=== PATIENT | male | born 1970 | race Caucasian/White ===

== ENCOUNTER 2023-03-28 05:45 | Inpatient (IN) | payer OTHER, SELFPAY ==
[2023-03-28] VITALS (8 sets, daily range): BP systolic 107–131; BP diastolic 76–93; PULSE 108–119; RESP 16–24; TEMP 36.2–36.6; O2SAT 94–100; BMI 26.1; BMI 27.4
--- NOTE | ~2023-03-28 | CT_ITS ---
EXAMINATION: CT HEAD WITHOUT CONTRAST CLINICAL INFORMATION: Headache for 2 days, rule out intracranial abnormality. COMPARISON: None available. TECHNIQUE: Contiguous axial imaging was performed from the skull base to vertex without intravenous administration of contrast. Coronal and sagittal reformatted images were obtained. This CT examination was performed using dose optimization techniques as appropriate, variously including the following: *Automated exposure control *Adjustment of mA and/or kV according to patient size (this includes techniques or standardized protocols for targeted exams where dose is matched to indication/reason for exam; i.e. extremities or head) *Use of iterative reconstruction technique DLP: 682 mGy-cm FINDINGS: There is mild widening of the cortical sulci and associated ventriculomegaly. The lateral ventricles are symmetrical. The third and fourth ventricles are in their normal midline position. The basilar and prepontine cisterns are unremarkable. There is no acute intra or extracerebral abnormality. There is no mass effect or midline shift. Sections through the bony calvarium are unremarkable. The orbits are intact. The paranasal sinuses show mild mucosal thickening in the ethmoid sinuses bilaterally. Remainder the paranasal sinuses are clear. The mastoid air cells are clear. Mild debris is seen medially in the left external auditory canal. CT/CT head/brain wo IV con IMPRESSION: No acute intracranial pathology.
--- NOTE | ~2023-03-28 | CT_ITS ---
EXAMINATION: CT CHEST WITHOUT CONTRAST CLINICAL INFORMATION: Cough COMPARISON: Previous chest x-ray from earlier the same day TECHNIQUE: Multidetector volumetric CT imaging of the chest was done. Axial MIP volume rendering provided. Sagittal and coronal reformatted images were obtained. This CT examination was performed using dose optimization techniques as appropriate, variously including the following: *Automated exposure control *Adjustment of mA and/or kV according to patient size (this includes techniques or standardized protocols for targeted exams where dose is matched to indication/reason for exam; i.e. extremities or head) *Use of iterative reconstruction technique DLP: 296 mGy-cm FINDINGS: Limited due to artifact from respiratory motion. LUNGS: Dependent atelectasis at the lung bases adjacent to pleural effusions. Question interlobular septal thickening. MEDIASTINUM: Upper normal heart size. Question pulmonary venous redistribution. Diffuse shotty mediastinal lymphadenopathy. No pericardial effusion. Normal thyroid gland. Normal caliber thoracic aorta. CORONARY ARTERY CALCIFICATION: Moderate PLEURA: Bilateral pleural effusions right greater than left. AXILLA: No lymphadenopathy. UPPER ABDOMEN: Question high attenuation in the gallbladder. OSSEOUS STRUCTURES: Mild degenerative changes of the spine CT/CT chest wo IV con IMPRESSION: Limited exam due to respiratory motion artifact. Question mild CHF with bilateral pleural effusions, right greater than left.. Fleischner guidelines were followed.
--- NOTE | ~2023-03-28 | XR_ITS ---
EXAMINATION: XR CHEST CLINICAL INFORMATION: Chills and cough COMPARISON: None available. TECHNIQUE: 2 views of the chest were obtained. FINDINGS: Cardiac silhouette is normal in size. The lungs are adequately aerated. There is prominence of central pulmonary vasculature. Patchy scattered airspace opacities, nonspecific. No large pleural effusion. No pneumothorax. XR/XR chest 2V IMPRESSION: Patchy scattered airspace opacities. Findings are nonspecific but most suggestive of an infectious etiology. Follow-up imaging recommended status post treatment to ensure resolution.
--- NOTE | 2023-03-28 07:06 | ED.GENADULT ---
HPI - General Adult General Chief complaint: General Medical Stated complaint: SoB Time Seen by Provider: 03/28/23 07:05 Source: patient Mode of arrival: ambulatory Limitations: no limitations History of Present Illness HPI narrative: 52-year-old male who presents emergency department for evaluation of 2 days of headache, chills, nonproductive cough, sore throat, chest pain and shortness of breath. Patient has also had nausea with 1 episode of vomiting, diarrhea x1 day with 6-7 episodes of loose stool with no blood-he has had chronic diarrhea in the past, myalgias and arthralgias. Patient states that he is fully vaccinated against COVID-19 and did have a flu shot. Patient's headache is located in the frontal area, the headache is a constant, sharp, waxes and wanes in intensity from 4/10 to 9/10, he had no associated numbness, weakness, photophobia, photophobia, change in vision. He states is very unusual to have a headache that lasts this long. Patient states that he has a history of chronic back pain is had multiple injuries. He is managed by [facility] Had steroid injections in the past. He states he has had a flare-up of his back pain, the pain is located in his lower back it is constant, worse with movement. He is currently taking ibuprofen 800 mg 3 times a day and gabapentin 100 mg, 1 pill in the morning, 1 pill in the afternoon and 3 pills at night with no relief his back pain. He states he has had no sleep has had 1-2 hours of sleep per night the last 2-3 nights. The patient has not had any recent out of the country travel. He was on antibiotics 1 month prior for several days for ?athlete's foot ?but states they had to stop after 3 days secondary to interaction with his medications The patient does have HIV disease and he is taking Genovya. He states that 2 months prior his viral load was undetectable and his T4 cell count was greater than 1000. Related Data Allergies Allergy/AdvReac Type Severity Reaction Status Date / Time Sulfa (Sulfonamide Allergy Unknown Verified 03/28/23 05:51 Antibiotics) Review of Systems Review of Systems: Yes all other systems are reviewed and are negative PMFSH Past Medical History [facility] Narrative: Past medical history: HIV disease, chronic back pain. Past surgical history: None. Social history: He denies tobacco, alcohol and drug use. Social History Social History Advance Directives: No Advance Directives Information Provided: Yes Physical Exam ED Vital Signs: Vital Signs - 24 hr 03/28/23 05:51 03/28/23 09:41 03/28/23 12:00 Temperature 97.9 F 97.4 F 97.5 F Pulse Rate 116 H 110 H 114 H Respiratory Rate 18 20 21 H Blood Pressure 128/91 H 115/85 126/93 H Pulse Oximetry 97 94 97 Oxygen Delivery Method Room Air Room Air Room Air 03/28/23 12:49 Temperature Pulse Rate 119 H Respiratory Rate 24 H Blood Pressure 129/87 Pulse Oximetry 95 Oxygen Delivery Method Room Air BMI result Body Mass Index 26.1 Const General: cooperative and no acute distress Orientation/consciousness: oriented to person and oriented to place Limitations: no limitations HENMT Head: Yes normal to inspection, Yes normocephalic and Yes atraumatic Ears: external ears normal General nose exam: Normal external nose present Face and sinus: Yes normal facial exam Mouth: Normal oral and palatal mucosa present Throat: Yes posterior oropharynx normal Eyes General: appearance normal, both eyes and all related structures Pupils: Equal, round and reactive pupils present Neck Neck: Yes normal visual inspection, Yes no lymphadenopathy, Yes trachea midline and Yes supple Chest Chest palpation & inspection: normal inspection of the chest and normal palpation of entire chest wall Resp Effort & Inspection: normal respiratory effort and able to speak in complete sentences Auscultation: clear to auscultation bilaterally Cardio Rate: regular rate Rhythm: regular rhythm Heart sounds: S1 normal heart sound present, S2 normal heart sound present and no murmurs GI Inspection: Yes normal to inspection Palpation (GI): Soft to palpation, nontender and no guarding Auscultation: normal bowel sounds Back/Spine/Pelvis Other: Tender over the paraspinal muscles in the lumbar sacral area bilaterally, spasm of these muscles, no point tenderness with palpation over his vertebrae. Patient does have a lidocaine patch on his lower back, no rash noted. Skin General skin exam: no rashes or lesions noted Neuro General: oriented to person and oriented to place Cranial nerves: Yes CN's II-XII intact bilaterally and Yes Equal, round and reactive pupils present Cognition (Neuro): normal cognition Motor exam (neuro): 5 motor strength present throughout Extrem General: Yes normal to inspection Psych Appearance: grossly normal Speech and movement: Normal speech and movement present Affect: normal affect Attitude: cooperative Thought process: Normal thought process present Thought content: Normal thought content present Medications Administered Generic Name Dose Route Start Last Admin Trade Name Rachael PRN Reason Stop Dose Admin Azithromycin 500 mg/ Sodium 250 mls @ 125 mls/hr 03/28/23 11:32 03/28/23 12:28 Chloride IV 03/28/23 13:31 125 mls/hr ONCE ONE Administration Discontinued Medications Generic Name Dose Route Start Last Admin Trade Name Rachael PRN Reason Stop Dose Admin Diphenhydramine HCl 50 mg 03/28/23 07:24 03/28/23 07:51 Diphenhydramine Hcl 50 Mg/Ml Vial IVPUSH 03/28/23 07:25 50 mg ONCE STA Administration Sodium Chloride 1,000 mls @ 999 mls/hr 03/28/23 07:24 03/28/23 09:39 Ns IV 03/28/23 08:24 Infused .Q1H1M STA Infusion Ceftriaxone Sodium 1 gm/ 50 mls @ 100 mls/hr 03/28/23 11:32 03/28/23 12:42 Sodium Chloride IV 03/28/23 12:01 Infused ONCE ONE Infusion Metoclopramide HCl 10 mg 03/28/23 07:24 03/28/23 07:51 Metoclopramide Hcl 10 Mg/2 Ml Vial IVPUSH 03/28/23 07:25 10 mg ONCE STA Administration Morphine Sulfate 4 mg 03/28/23 07:29 03/28/23 07:51 Morphine Sulfate 4 Mg/Ml Cartridge IVPUSH 03/28/23 07:30 4 mg ONCE STA Administration Protocol Medical Decision Making Medical Decision Making MDM Narrative: 52-year-old male with HIV disease, viral load is zero, T4 cell count greater than 1000 who presents emergency department for evaluation of 2 days headache, chills, sore throat, cough, chest pain, shortness of breath, nausea vomiting, diarrhea, myalgias and arthralgias. Patient also has a flare-up of his chronic lower back pain. He is taking ibuprofen 800 mg 3 times a day and gabapentin 3 times a day with no relief his back pain. Patient has had decreased appetite and poor oral intake. Vital signs revealed an elevated pulse of 116. Patient's examination was otherwise unremarkable. I ordered a CBC, CMP, lipase, C diff, GI panel, influenza, COVID-19, strep test, urinalysis. I will obtain a CT scan of the brain and two-view chest x-ray. Patient's headache and body pain was treated with morphine 4 mg IV, Reglan 10 mg IV and Benadryl 50 mg IV. I also ordered normal saline x1 L. 1005: My interpretation patient's data is as follows: CBC was normal. Sodium and chloride were low 124 and 94. Serum osmolality low 267, urine osmolality normal 695, urine sodium low 20. LFTs were normal. Lipase was normal. COVID-19 and influenza were negative. CT scan of the head was unremarkable. Chest x-ray revealed bilateral interstitial pneumonia Patient was unable to give us a stool sample. Patient's presentation is consistent with atypical pneumonia. Given his normal T4 cell count and zero viral load the patient will be treated for an atypical pneumonia. Given his hyponatremia, I will consult Nephrology determine further management. 1137: I did discuss the patient's hyponatremia with our covering financial engineer, Dr. Leon Chamorro. He felt that the hyponatremia mixed disorder. Patient was tachycardic and is most likely hypovolemic he may also have an SIADH picture secondary to an atypical pneumonia/bacterial infection. He recommended that the patient not get any more IV fluid and that the patient be restricted to 1.5 L of free water per day. The patient already drink 1.0 L of water while he was here in the emergency department. I did order lactic acid, blood cultures x2, ceftriaxone 1 g IV and azithromycin 500 mg IV. I will discuss admission with the covering hospitalist. 1330: I discuss the patient's presentation with the covering hospitalist, Dr. Dave who accepted the patient on the hospital service. Differential Diagnosis Differential diagnosis includes but is not limited to headache, mass effect bleed, subarachnoid hemorrhage, viral syndrome, C diff colitis, viral colitis, pneumonia, viral pharyngitis, bacterial pharyngitis Admission/Observation Consideration of admission/observation: Escalation of care including admission/observation considered Consult Healthcare Provider Management of the patient was discussed with: Hospitalist and Divider Operator (Dr. Chamorro, financial engineer) Lab Data MDM Lab Attestation statement: I reviewed the patient's lab results. 03/28/23 07:45 03/28/23 07:45 Labs: Lab Results 03/28/23 03/28/23 03/28/23 Range/Units 07:45 07:45 07:45 WBC 7.7 (4.8-10.8) X10*3/uL RBC 4.48 L (4.60-5.80) X10*6/uL Hgb 14.1 (14.0-18.0) g/dl Hct 39.8 L (42.0-52.0) % MCV 88.8 (80.0-98.0) fL MCH 31.5 (27.0-33.0) pg MCHC 35.4 (31.0-36.0) g/dl RDW 11.3 (11.0-16.0) % Plt Count 257 (160-400) X10*3/uL MPV 10.2 (9.4-12.4) fL Immature Gran % (Auto) 0.4 (0.0-0.4) % Neut % (Auto) 75.0 H (45-73) % Lymph % (Auto) 15.6 L (20-40) % [place] % (Auto) 8.4 (2-11) % Eos % (Auto) 0.3 (0-4) % Baso % (Auto) 0.3 (0-2) % Lymph # (Auto) 1.2 (1.2-4.9) X10*3/uL [place] # (Auto) 0.7 (0.1-1.2) X10*3/uL Eos # (Auto) 0.0 (0.0-0.4) X10*3/uL Baso # (Auto) 0.0 (0.0-0.2) X10*3/uL Abs Immat Gran (auto) 0.03 (0.00-0.03) X10*3/uL Absolute Neuts (auto) 5.8 (2.0-8.3) x10*3/uL Absolute Nucleated RBC 0.000 (0.0-0.012) X10*3/uL Nucleated RBC % (auto) 0.0 (0.0-0.2) /100WBC Smear Tech's Comments VERIFIED PT (10.0-13.1) SEC INR (0.9-1.1) APTT (26.0-36.4) SEC Sodium 124 L (135-145) mmol/L Potassium 4.4 (3.3-5.1) mmol/L Chloride 94 L (96-108) mmol/L Carbon Dioxide 23 (22-29) mmol/L Anion Gap 11 L (12-20) BUN 17 H (9-16) mg/dL Creatinine 0.75 (0.5-1.4) mg/dL Estim Creat Clear Calc 120.3 Estimated GFR > 60 Random Glucose 116 H (60-115) mg/dL Osmolality (281-305) mosm/kg Lactic Acid (0.5-2.0) mmol/L Calcium 8.9 (8.4-10.2) mg/dL Total Bilirubin 1.1 H (0.0-1.0) mg/dL AST 20 (5-37) U/L ALT 25 (0-40) U/L Alkaline Phosphatase 71 (39-117) U/L Total Protein 6.6 (6.5-8.0) g/dL Albumin 4.0 (3.5-5.0) g/dL Lipase 8 (8-78) U/L Urine Color Urine Appearance Urine pH (5.0-9.0) Ur Specific [place] (1.005-1.025) Urine Protein (Neg-Trace) mg/dL Urine Glucose (UA) (Negative) mg/dL Urine Ketones (Negative) mg/dL Urine Blood (Negative) Urine Nitrite (Negative) Ur Leukocyte Esterase (Negative) Urine RBC (0-2) /HPF Urine WBC (0-5) /HPF Ur Squamous Epith Cells (0-2) /HPF Urine Bacteria (None Seen) Hyaline Casts (0-2) /LPF Urine Osmolality (373-1093) mosm/kg Ur Random Sodium mmol/L COVID-19 (LIDIA) (Negative) COVID-19 Clin Com Influenza Type A (AMRIK) Negative (Negative) Influenza Type B (AMRIK) Negative (Negative) Influenza A & B Note See Note S. pyogenes GrpA AMRIK (Negative) 03/28/23 03/28/23 03/28/23 Range/Units 07:45 07:45 07:45 WBC (4.8-10.8) X10*3/uL RBC (4.60-5.80) X10*6/uL Hgb (14.0-18.0) g/dl Hct (42.0-52.0) % MCV (80.0-98.0) fL MCH (27.0-33.0) pg MCHC (31.0-36.0) g/dl RDW (11.0-16.0) % Plt Count (160-400) X10*3/uL MPV (9.4-12.4) fL Immature Gran % (Auto) (0.0-0.4) % Neut % (Auto) (45-73) % Lymph % (Auto) (20-40) % [place] % (Auto) (2-11) % Eos % (Auto) (0-4) % Baso % (Auto) (0-2) % Lymph # (Auto) (1.2-4.9) X10*3/uL [place] # (Auto) (0.1-1.2) X10*3/uL Eos # (Auto) (0.0-0.4) X10*3/uL Baso # (Auto) (0.0-0.2) X10*3/uL Abs Immat Gran (auto) (0.00-0.03) X10*3/uL Absolute Neuts (auto) (2.0-8.3) x10*3/uL Absolute Nucleated RBC (0.0-0.012) X10*3/uL Nucleated RBC % (auto) (0.0-0.2) /100WBC Smear Tech's Comments PT (10.0-13.1) SEC INR (0.9-1.1) APTT (26.0-36.4) SEC Sodium (135-145) mmol/L Potassium (3.3-5.1) mmol/L Chloride (96-108) mmol/L Carbon Dioxide (22-29) mmol/L Anion Gap (12-20) BUN (9-16) mg/dL Creatinine (0.5-1.4) mg/dL Estim Creat Clear Calc Estimated GFR Random Glucose (60-115) mg/dL Osmolality 267 L (281-305) mosm/kg Lactic Acid (0.5-2.0) mmol/L Calcium (8.4-10.2) mg/dL Total Bilirubin (0.0-1.0) mg/dL AST (5-37) U/L ALT (0-40) U/L Alkaline Phosphatase (39-117) U/L Total Protein (6.5-8.0) g/dL Albumin (3.5-5.0) g/dL Lipase (8-78) U/L Urine Color Urine Appearance Urine pH (5.0-9.0) Ur Specific [place] (1.005-1.025) Urine Protein (Neg-Trace) mg/dL Urine Glucose (UA) (Negative) mg/dL Urine Ketones (Negative) mg/dL Urine Blood (Negative) Urine Nitrite (Negative) Ur Leukocyte Esterase (Negative) Urine RBC (0-2) /HPF Urine WBC (0-5) /HPF Ur Squamous Epith Cells (0-2) /HPF Urine Bacteria (None Seen) Hyaline Casts (0-2) /LPF Urine Osmolality (373-1093) mosm/kg Ur Random Sodium mmol/L COVID-19 (LIDIA) Negative (Negative) COVID-19 Clin Com See Note Influenza Type A (AMRIK) (Negative) Influenza Type B (AMRIK) (Negative) Influenza A & B Note S. pyogenes GrpA AMRIK Negative (Negative) 03/28/23 03/28/23 03/28/23 Range/Units 07:49 08:18 08:18 WBC (4.8-10.8) X10*3/uL RBC (4.60-5.80) X10*6/uL Hgb (14.0-18.0) g/dl Hct (42.0-52.0) % MCV (80.0-98.0) fL MCH (27.0-33.0) pg MCHC (31.0-36.0) g/dl RDW (11.0-16.0) % Plt Count (160-400) X10*3/uL MPV (9.4-12.4) fL Immature Gran % (Auto) (0.0-0.4) % Neut % (Auto) (45-73) % Lymph % (Auto) (20-40) % [place] % (Auto) (2-11) % Eos % (Auto) (0-4) % Baso % (Auto) (0-2) % Lymph # (Auto) (1.2-4.9) X10*3/uL [place] # (Auto) (0.1-1.2) X10*3/uL Eos # (Auto) (0.0-0.4) X10*3/uL Baso # (Auto) (0.0-0.2) X10*3/uL Abs Immat Gran (auto) (0.00-0.03) X10*3/uL Absolute Neuts (auto) (2.0-8.3) x10*3/uL Absolute Nucleated RBC (0.0-0.012) X10*3/uL Nucleated RBC % (auto) (0.0-0.2) /100WBC Smear Tech's Comments PT 12.2 (10.0-13.1) SEC INR 1.1 (0.9-1.1) APTT 32.6 (26.0-36.4) SEC Sodium (135-145) mmol/L Potassium (3.3-5.1) mmol/L Chloride (96-108) mmol/L Carbon Dioxide (22-29) mmol/L Anion Gap (12-20) BUN (9-16) mg/dL Creatinine (0.5-1.4) mg/dL Estim Creat Clear Calc Estimated GFR Random Glucose (60-115) mg/dL Osmolality (281-305) mosm/kg Lactic Acid (0.5-2.0) mmol/L Calcium (8.4-10.2) mg/dL Total Bilirubin (0.0-1.0) mg/dL AST (5-37) U/L ALT (0-40) U/L Alkaline Phosphatase (39-117) U/L Total Protein (6.5-8.0) g/dL Albumin (3.5-5.0) g/dL Lipase (8-78) U/L Urine Color Yellow Urine Appearance Clear Urine pH 6.0 (5.0-9.0) Ur Specific [place] 1.020 (1.005-1.025) Urine Protein 30 (1+) H (Neg-Trace) mg/dL Urine Glucose (UA) Negative (Negative) mg/dL Urine Ketones 40 (Negative) mg/dL Urine Blood Negative (Negative) Urine Nitrite Negative (Negative) Ur Leukocyte Esterase Negative (Negative) Urine RBC 0-2 (0-2) /HPF Urine WBC 0-5 (0-5) /HPF Ur Squamous Epith Cells 0-2 (0-2) /HPF Urine Bacteria None Seen (None Seen) Hyaline Casts 0-2 (0-2) /LPF Urine Osmolality 695 (373-1093) mosm/kg Ur Random Sodium mmol/L COVID-19 (LIDIA) (Negative) COVID-19 Clin Com Influenza Type A (AMRIK) (Negative) Influenza Type B (AMRIK) (Negative) Influenza A & B Note S. pyogenes GrpA AMRIK (Negative) 03/28/23 03/28/23 03/28/23 Range/Units 08:18 12:14 12:14 WBC (4.8-10.8) X10*3/uL RBC (4.60-5.80) X10*6/uL Hgb (14.0-18.0) g/dl Hct (42.0-52.0) % MCV (80.0-98.0) fL MCH (27.0-33.0) pg MCHC (31.0-36.0) g/dl RDW (11.0-16.0) % Plt Count (160-400) X10*3/uL MPV (9.4-12.4) fL Immature Gran % (Auto) (0.0-0.4) % Neut % (Auto) (45-73) % Lymph % (Auto) (20-40) % [place] % (Auto) (2-11) % Eos % (Auto) (0-4) % Baso % (Auto) (0-2) % Lymph # (Auto) (1.2-4.9) X10*3/uL [place] # (Auto) (0.1-1.2) X10*3/uL Eos # (Auto) (0.0-0.4) X10*3/uL Baso # (Auto) (0.0-0.2) X10*3/uL Abs Immat Gran (auto) (0.00-0.03) X10*3/uL Absolute Neuts (auto) (2.0-8.3) x10*3/uL Absolute Nucleated RBC (0.0-0.012) X10*3/uL Nucleated RBC % (auto) (0.0-0.2) /100WBC Smear Tech's Comments PT (10.0-13.1) SEC INR (0.9-1.1) APTT (26.0-36.4) SEC Sodium 126 L (135-145) mmol/L Potassium 4.1 (3.3-5.1) mmol/L Chloride 96 (96-108) mmol/L Carbon Dioxide 19 L (22-29) mmol/L Anion Gap 15 (12-20) BUN 15 (9-16) mg/dL Creatinine 0.71 (0.5-1.4) mg/dL Estim Creat Clear Calc 127.0 Estimated GFR > 60 Random Glucose 99 (60-115) mg/dL Osmolality (281-305) mosm/kg Lactic Acid 1.3 (0.5-2.0) mmol/L Calcium 8.7 (8.4-10.2) mg/dL Total Bilirubin (0.0-1.0) mg/dL AST (5-37) U/L ALT (0-40) U/L Alkaline Phosphatase (39-117) U/L Total Protein (6.5-8.0) g/dL Albumin (3.5-5.0) g/dL Lipase (8-78) U/L Urine Color Urine Appearance Urine pH (5.0-9.0) Ur Specific [place] (1.005-1.025) Urine Protein (Neg-Trace) mg/dL Urine Glucose (UA) (Negative) mg/dL Urine Ketones (Negative) mg/dL Urine Blood (Negative) Urine Nitrite (Negative) Ur Leukocyte Esterase (Negative) Urine RBC (0-2) /HPF Urine WBC (0-5) /HPF Ur Squamous Epith Cells (0-2) /HPF Urine Bacteria (None Seen) Hyaline Casts (0-2) /LPF Urine Osmolality (373-1093) mosm/kg Ur Random Sodium < 20.0 mmol/L COVID-19 (LIDIA) (Negative) COVID-19 Clin Com Influenza Type A (AMRIK) (Negative) Influenza Type B (AMRIK) (Negative) Influenza A & B Note S. pyogenes GrpA AMRIK (Negative) Independent Interpretation I performed an independent interpretation of an: Plain X-Ray Interpretation: Chest X-ray, two view, interpreted by me as follows: Increased bilateral interstitial infiltrates concerning for atypical pneumonia. Radiology Impression Discussion of test interpretation with radiology: I have reviewed the radiologist's reading. Radiologist Impression: XR chest 2V IMPRESSION: Patchy scattered airspace opacities. Findings are nonspecific but most suggestive of an infectious etiology. Follow-up imaging recommended status post treatment to ensure resolution. Dictated By:Mohinder Ma MD Independent Historian Clinical information obtained from an independent historian. History obtained from or confirmed by: Spouse Prescription Management I considered prescription management with: Pain Medication Chronic Conditions Patient?s care impacted by: Other (HIV disease) Discharge Plan Discharge Clinical Impression: Atypical pneumonia, Acute hyponatremia
[2023-03-28] MEDS: Morphine Sulfate 4 MG/ML CARTRIDGE IVPUSH ×2 (07:51→14:21)
[2023-03-28] MEDS: 0.9 % Sodium Chloride 1,000 ML 999 ML IV (07:51)
[2023-03-28] MEDS: Metoclopramide HCl 10 MG/2 ML VIAL IVPUSH (07:51)
[2023-03-28] MEDS: diphenhydrAMINE HCL 50 MG/ML VIAL IVPUSH (07:51)
[2023-03-28 07:59] LABS: Basophils Percent Auto 0.3 % (0-2); Eosinophils Percent Auto 0.3 % (0-4); Hematocrit 39.8 % (42.0-52.0); Hemoglobin 14.1 g/dl (14.0-18.0); Imm Gran Abs Auto 0.03 X10*3/uL (0.00-0.03); Imm Gran Pct Auto 0.4 % (0.0-0.4); Lymphocytes Absolute Auto 1.2 X10*3/uL (1.2-4.9); Lymphocytes Percent Auto 15.6 % (20-40); MANUAL DIFF FLAG SCAN; Mean Corpuscular HGB Conc 35.4 g/dl (31.0-36.0); Mean Corpuscular Hemoglobin 31.5 pg (27.0-33.0); Mean Corpuscular Volume 88.8 fL (80.0-98.0); Mean Platelet Volume 10.2 fL (9.4-12.4); Monocytes Absolute Auto 0.7 X10*3/uL (0.1-1.2); Monocytes Percent Auto 8.4 % (2-11); Neutrophils Absolute Auto 5.8 x10*3/uL (2.0-8.3); PLT CLUMP 1; Red Blood Count 4.48 X10*6/uL (4.60-5.80); Red Cell Distribution Width 11.3 % (11.0-16.0); SCAN SMEAR FLAG 1
[2023-03-28 08:01] LABS: Appearance Urine Clear; Color Urine Yellow; Glucose Urine UA Negative (Negative); Leukocyte Esterase Urine Negative (Negative); Nitrite Urine Negative (Negative); UMIC TRIGGER UACC YES; Urine Blood Negative (Negative); Urine Ketones 40 mg/dL (Negative); Urine Protein 30 (1+) mg/dL (Neg-Trace)
[2023-03-28 08:04] LABS: IDNOW Serial# 6674DD1D; Strep A Nucleic Acid Negative (Negative)
[2023-03-28 08:09] LABS: Alanine Aminotransferase 25 U/L (0-40); Alkaline Phosphatase 71 U/L (39-117); Anion Gap 11 (12-20); Aspartate Amino Transferase 20 U/L (5-37); Bilirubin Total 1.1 mg/dL (0.0-1.0); Blood Urea Nitrogen 17 mg/dL (9-16); COVID-19 Test Negative (Negative); Calcium 8.9 mg/dL (8.4-10.2); Carbon Dioxide 23 mmol/L (22-29); Chloride 94 mmol/L (96-108); Creatinine Clr Calc Pharmacy 120.3; Estimated Glomerular Filt Rate > 60; Glucose Random 116 mg/dL (60-115); IDNOW Serial# BCCEAD1C; Lipase 8 U/L (8-78); Potassium 4.4 mmol/L (3.3-5.1); Sodium 124 mmol/L (135-145); Total Protein 6.6 g/dL (6.5-8.0)
[2023-03-28 08:09] LABS: Bacteria Urine None Seen (None Seen); Hyaline Casts Urine 0-2 /LPF (0-2); RBC Urine 0-2 /HPF (0-2); Squamous Epithelial Cell Urine 0-2 /HPF (0-2); WBC Urine 0-5 /HPF (0-5)
[2023-03-28 08:10] LABS: IDNOW Serial# 9DB6401D; Influenza A Negative (Negative); Influenza B2 Negative (Negative)
[2023-03-28 08:24] LABS: Platelet Count 257 X10*3/uL (160-400); White Blood Count 7.7 X10*3/uL (4.8-10.8)
[2023-03-28 08:25] LABS: SLIDE REVIEW VERIFIED
[2023-03-28 08:30] LABS: INTERNATIONAL NORM RATIO 1.1 (0.9-1.1); Prothrombin Time 12.2 SEC (10.0-13.1)
[2023-03-28 08:32] LABS: Partial Thromboplastin Time 32.6 SEC (26.0-36.4)
[2023-03-28 09:28] LABS: Sodium Urine Random < 20.0 mmol/L
[2023-03-28 09:30] LABS: Osmolality, Serum 267 mosm/kg (281-305)
[2023-03-28 09:31] LABS: Osmolality Urine 695 mosm/kg (373-1093)
[2023-03-28] MEDS: cefTRIAXone sodium 1 GM in 0.9 % Sodium Chloride 50 ML IV (12:12)
--- NOTE | 2023-03-28 12:13 | PC.NURSE ---
pt AOx3. labs and blood cultures sent abx infusing per DEC. Pt NPO, strict I&O fluid intake. Pt cannot intake fluids besides ordered ABX due to low sodium. sinus tach on monitor, vitals otherwise stable.
--- NOTE | 2023-03-28 12:23 | PC.NURSE ---
12:22 documented Intake included 1L IV fluids, 300ml in abx fluids, and PO intake water.
[2023-03-28] MEDS: Azithromycin 500 MG in 0.9 % Sodium Chloride 250 ML 125 MG IV (12:28)
[2023-03-28 12:45] LABS: Lactic Acid 1.3 mmol/L (0.5-2.0)
[2023-03-28 12:51] LABS: Anion Gap 15 (12-20); Blood Urea Nitrogen 15 mg/dL (9-16); Calcium 8.7 mg/dL (8.4-10.2); Carbon Dioxide 19 mmol/L (22-29); Chloride 96 mmol/L (96-108); Estimated Glomerular Filt Rate > 60; Glucose Random 99 mg/dL (60-115); Potassium 4.1 mmol/L (3.3-5.1); Sodium 126 mmol/L (135-145)
--- NOTE | 2023-03-28 15:32 | PM.IMHP ---
History of Present Illness Date of Service: 03/28/23 <ERASMO Staton - Last Filed: 03/28/23 15:50> Attending physician on admission: Amanda Dave <ERASMO Staton - Last Filed: 03/28/23 15:50> Chief Complaint: shortness of breath <ERASMO Staton - Last Filed: 03/28/23 15:50> This is a 52-year-old male with history of HIV who presents to the emergency department with several days of shortness of breath. Patient reports sore throat, headache, nonproductive cough, chills and multiple days of non-bloody diarrhea. He denies any recent sick contacts or recent travel. He has had decreased po intake. He also reports some back pain. In the emergency department lab work was significant for hyponatremia with a sodium of 124. Chest x-ray revealed patchy scattered airspace opacities suggestive of infectious etiology. He was treated with IV ceftriaxone and azithromycin. For hyponatremia he received 1 L of IV normal saline. The case was discussed with Nephrology on-call who recommended fluid restriction. He received multiple doses of IV narcotics for control of back pain and the decision was made to admit him to the hospital for further management. <ERASMO Staton - Last Filed: 03/28/23 15:50> This is a 52-year-old male with history of HIV who presents to the emergency department with several days of shortness of breath. Patient reports sore throat, headache, nonproductive cough, chills and multiple days of non-bloody diarrhea. He denies any recent sick contacts or recent travel. He has had decreased po intake. He also reports some back pain. In the emergency department lab work was significant for hyponatremia with a sodium of 124. Chest x-ray revealed patchy scattered airspace opacities suggestive of infectious etiology. He was treated with IV ceftriaxone and azithromycin. For hyponatremia he received 1 L of IV normal saline. The case was discussed with Nephrology on-call who recommended fluid restriction. He received multiple doses of IV narcotics for control of back pain and the decision was made to admit him to the hospital for further management. <Amanda Dave MD - Last Filed: 03/28/23 18:42> Review of Systems Review of Systems: Yes all other systems are reviewed and are negative <ERASMO Staton - Last Filed: 03/28/23 15:50> Constitutional: Constitutional: Reports chills and Denies fever(s) <ERASMO Staton - Last Filed: 03/28/23 15:50> ENT: Denies dizziness <ERASMO Staton - Last Filed: 03/28/23 15:50> Cardiovascular: Cardiovascular: Denies chest pain and Reports dyspnea <ERASMO Staton - Last Filed: 03/28/23 15:50> Respiratory: Respiratory: Reports cough and Reports dyspnea <ERASMO Staton - Last Filed: 03/28/23 15:50> Gastrointestinal: Gastrointestinal: Denies abdominal pain and Reports diarrhea <ERASMO Staton - Last Filed: 03/28/23 15:50> Neurologic: Denies dizziness <ERASMO Staton - Last Filed: 03/28/23 15:50> [facility] Medical History: Medical History (Updated 03/28/23 @ 16:03 by Itz Roman MD) HIV (human immunodeficiency virus infection) <ERASMO Staton - Last Filed: 03/28/23 15:50> Pertinent family history: Adopted - not aware of family history <ERASMO Staton - Last Filed: 03/28/23 15:50> Social History: Social History (Updated 03/28/23 @ 15:42 by ERASMO Staton) Household Members: Significant Other Housing: House Do you presently have visiting nurse or other home services: No Alcohol intake: never Patient Tobacco Use Status: Never used Tobacco Use of substances other than those prescribed or required for medical reasons: No Have you been hit, kicked, punched, or otherwise hurt by someone within the past year? If so, by whom?: No Do you feel safe in your current relationship?: No Is there a partner from a previous relationship who is making you feel unsafe now?: No Are you made to feel afraid or neglected: No Advance Directives: No Advance Directives Information Provided: Yes Do you have thoughts of harming others: None Do you have a plan to hurt others: No Plan Recently lost weight without trying: No <ERASMO Staton - Last Filed: 03/28/23 15:50> Meds Allergies/Adverse reactions: Allergies Allergy/AdvReac Type Severity Reaction Status Date / Time Sulfa (Sulfonamide Allergy Unknown Verified 03/28/23 05:51 Antibiotics) <ERASMO Staton - Last Filed: 03/28/23 15:50> Active Medications: Current Medications Acetaminophen (Acetaminophen 325 Mg Tablet) 650 mg PO Q6H PRN PRN Reason: Pain, Mild (Pain Scale 1-3) Docusate Sodium (Docusate Sodium 100 Mg Capsule) 100 mg PO DAILY PRN PRN Reason: Constipation Enoxaparin Sodium (Enoxaparin Sodium 40 Mg/0.4 Ml Syringe) 40 mg SUBCUT Q24H NIELS Ceftriaxone Sodium 1 gm/ (Sodium Chloride) 50 mls @ 100 mls/hr IV Q24H NIELS Azithromycin 500 mg/ Sodium (Chloride) 250 mls @ 125 mls/hr IV Q24H NIELS Ondansetron HCl (Ondansetron Hcl 4 Mg/2 Ml Vial) 4 mg IVPUSH Q8H PRN PRN Reason: Nausea and Vomiting Pharmacy Consult (Consult Rx Perform Med Rec) 1 each MISCELLANE ONCE PRN PRN Reason: Consult order Sodium Chloride (0.9 % Sodium Chloride Flush 3 Ml Syringe) 3 ml IVFLUSH QSHIFT NIELS <ERASMO Staton - Last Filed: 03/28/23 15:50> Home medications: Home Medications Medication Instructions Recorded Confirmed Last Taken Type docusate sodium 100 mg capsule 100 mg PO DAILY 03/28/23 03/28/23 Unknown History elviteg 150 mg-cob 150 mg-emtricit 1 tab PO DAILY 03/28/23 03/28/23 Unknown History 200 mg-tenofo alafenam 10 mg tablet (Genvoya) gabapentin 100 mg capsule 100 mg PO TID 03/28/23 03/28/23 Unknown History ibuprofen 800 mg tablet 800 mg PO Q8H 03/28/23 03/28/23 Unknown History lidocaine 4 % topical patch 2 patch topical DAILY PRN Back Pain 03/28/23 03/28/23 Unknown History loperamide 2 mg tablet 2 mg PO BID PRN Diarrhea 03/28/23 03/28/23 Unknown History <ERASMO Staton Last Filed: 03/28/23 15:50> Physical Exam Vital Signs and Narrative: Vital Signs: Last Vital Signs Temp 97.5 F 03/28/23 12:00 Pulse 108 H 03/28/23 15:06 Resp 16 03/28/23 15:06 BP 107/76 03/28/23 15:06 Pulse Ox 97 03/28/23 14:00 O2 Del Method Room Air 03/28/23 14:00 BMI result Body Mass Index 26.1 <ERASMO Staton - Last Filed: 03/28/23 15:50> Const: Other: sleepy but easily arousable to verbal stimuli <ERASMO Staton - Last Filed: 03/28/23 15:50> General: comfortable and no acute distress <ERASMO Staton - Last Filed: 03/28/23 15:50> Nutritional Appearance: average body habitus <ERASMO Staton - Last Filed: 03/28/23 15:50> Orientation/consciousness: patient oriented x3 <ERASMO Staton - Last Filed: 03/28/23 15:50> HEENT: Other: dry MM <ERASMO Staton - Last Filed: 03/28/23 15:50> Resp: Effort & Inspection: normal respiratory effort, able to speak in complete sentences, no respiratory distress and no use of accessory muscles <ERASMO Staton - Last Filed: 03/28/23 15:50> Cardio: Rate: tachycardic <ERASMO Staton - Last Filed: 03/28/23 15:50> Heart sounds: S1 normal heart sound present and S2 normal heart sound present <ERASMO Staton - Last Filed: 03/28/23 15:50> GI: Inspection: No distended <ERASMO Staton - Last Filed: 03/28/23 15:50> Palpation (GI): Soft to palpation and nontender <ERASMO Staton - Last Filed: 03/28/23 15:50> Neuro: General: patient oriented x3 and CN's II-XI intact bilaterally <ERASMO Staton - Last Filed: 03/28/23 15:50> Extrem: General: Yes no pedal edema <ERASMO Staton - Last Filed: 03/28/23 15:50> Results Labs CBC and Chem 7: 03/28/23 07:45 03/28/23 12:14 <ERASMO Staton - Last Filed: 03/28/23 15:50> Labs: Laboratory Results - last 24 hr 03/28/23 03/28/23 03/28/23 07:45 07:45 07:45 MCV 88.8 MCH 31.5 MCHC 35.4 RDW 11.3 Plt Count 257 MPV 10.2 Immature Gran % (Auto) 0.4 Neut % (Auto) 75.0 H Lymph % (Auto) 15.6 L Hitchcock % (Auto) 8.4 Eos % (Auto) 0.3 Baso % (Auto) 0.3 Lymph # (Auto) 1.2 Hitchcock # (Auto) 0.7 Eos # (Auto) 0.0 Baso # (Auto) 0.0 Abs Immat Gran (auto) 0.03 Absolute Neuts (auto) 5.8 Absolute Nucleated RBC 0.000 Nucleated RBC % (auto) 0.0 Smear Tech's Comments VERIFIED PT INR APTT Anion Gap 11 L Estim Creat Clear Calc 120.3 Estimated GFR > 60 Random Glucose 116 H Osmolality Lactic Acid Calcium 8.9 Total Bilirubin 1.1 H AST 20 ALT 25 Alkaline Phosphatase 71 Total Protein 6.6 Albumin 4.0 Lipase 8 Urine Color Urine Appearance Urine pH Ur Specific [place] Urine Protein Urine Glucose (UA) Urine Ketones Urine Blood Urine Nitrite Ur Leukocyte Esterase Urine RBC Urine WBC Ur Squamous Epith Cells Urine Bacteria Hyaline Casts Urine Osmolality Ur Random Sodium COVID-19 (LIDIA) COVID-19 Clin Com Influenza Type A (AMRIK) Negative Influenza Type B (AMRIK) Negative Influenza A & B Note See Note S. pyogenes GrpA AMRIK 03/28/23 03/28/23 03/28/23 07:45 07:45 07:45 MCV MCH MCHC RDW Plt Count MPV Immature Gran % (Auto) Neut % (Auto) Lymph % (Auto) Hitchcock % (Auto) Eos % (Auto) Baso % (Auto) Lymph # (Auto) Hitchcock # (Auto) Eos # (Auto) Baso # (Auto) Abs Immat Gran (auto) Absolute Neuts (auto) Absolute Nucleated RBC Nucleated RBC % (auto) Smear Tech's Comments PT INR APTT Anion Gap Estim Creat Clear Calc Estimated GFR Random Glucose Osmolality 267 L Lactic Acid Calcium Total Bilirubin AST ALT Alkaline Phosphatase Total Protein Albumin Lipase Urine Color Urine Appearance Urine pH Ur Specific [place] Urine Protein Urine Glucose (UA) Urine Ketones Urine Blood Urine Nitrite Ur Leukocyte Esterase Urine RBC Urine WBC Ur Squamous Epith Cells Urine Bacteria Hyaline Casts Urine Osmolality Ur Random Sodium COVID-19 (LIDIA) Negative COVID-19 Clin Com See Note Influenza Type A (AMRIK) Influenza Type B (AMRIK) Influenza A & B Note S. pyogenes GrpA AMRIK Negative 03/28/23 03/28/23 03/28/23 07:49 08:18 08:18 MCV MCH MCHC RDW Plt Count MPV Immature Gran % (Auto) Neut % (Auto) Lymph % (Auto) Hitchcock % (Auto) Eos % (Auto) Baso % (Auto) Lymph # (Auto) Hitchcock # (Auto) Eos # (Auto) Baso # (Auto) Abs Immat Gran (auto) Absolute Neuts (auto) Absolute Nucleated RBC Nucleated RBC % (auto) Smear Tech's Comments PT 12.2 INR 1.1 APTT 32.6 Anion Gap Estim Creat Clear Calc Estimated GFR Random Glucose Osmolality Lactic Acid Calcium Total Bilirubin AST ALT Alkaline Phosphatase Total Protein Albumin Lipase Urine Color Yellow Urine Appearance Clear Urine pH 6.0 Ur Specific [place] 1.020 Urine Protein 30 (1+) H Urine Glucose (UA) Negative Urine Ketones 40 Urine Blood Negative Urine Nitrite Negative Ur Leukocyte Esterase Negative Urine RBC 0-2 Urine WBC 0-5 Ur Squamous Epith Cells 0-2 Urine Bacteria None Seen Hyaline Casts 0-2 Urine Osmolality 695 Ur Random Sodium COVID-19 (LIDIA) COVID-19 Clin Com Influenza Type A (AMRIK) Influenza Type B (AMRIK) Influenza A & B Note S. pyogenes GrpA AMRIK 03/28/23 03/28/23 03/28/23 08:18 12:14 12:14 MCV MCH MCHC RDW Plt Count MPV Immature Gran % (Auto) Neut % (Auto) Lymph % (Auto) Hitchcock % (Auto) Eos % (Auto) Baso % (Auto) Lymph # (Auto) Hitchcock # (Auto) Eos # (Auto) Baso # (Auto) Abs Immat Gran (auto) Absolute Neuts (auto) Absolute Nucleated RBC Nucleated RBC % (auto) Smear Tech's Comments PT INR APTT Anion Gap 15 Estim Creat Clear Calc 127.0 Estimated GFR > 60 Random Glucose 99 Osmolality Lactic Acid 1.3 Calcium 8.7 Total Bilirubin AST ALT Alkaline Phosphatase Total Protein Albumin Lipase Urine Color Urine Appearance Urine pH Ur Specific [place] Urine Protein Urine Glucose (UA) Urine Ketones Urine Blood Urine Nitrite Ur Leukocyte Esterase Urine RBC Urine WBC Ur Squamous Epith Cells Urine Bacteria Hyaline Casts Urine Osmolality Ur Random Sodium < 20.0 COVID-19 (LIDIA) COVID-19 Clin Com Influenza Type A (AMRIK) Influenza Type B (AMRIK) Influenza A & B Note S. pyogenes GrpA AMRIK <ERASMO Staton - Last Filed: 03/28/23 15:50> Imaging Radiologist's Impressions: Impressions Chest X-Ray 03/28/23 08:07 IMPRESSION: Patchy scattered airspace opacities. Findings are nonspecific but most suggestive of an infectious etiology. Follow-up imaging recommended status post treatment to ensure resolution. Head CT 03/28/23 08:08 IMPRESSION: No acute intracranial pathology. <ERASMO Staton - Last Filed: 03/28/23 15:50> Assessment and Plan (1) Atypical pneumonia: Status: Acute <ERASMO Staton - Last Filed: 03/28/23 15:50> (2) Acute hyponatremia: Status: Acute <ERASMO Staton - Last Filed: 03/28/23 15:50> This is a 52-year-old male with history of HIV presents to the emergency department with several days of cough, shortness of breath, chills, diarrhea, headache found to have pneumonia and hyponatremia sepsis secondary to Community acquired pneumonia meets criteria with tachycardia and elevated RR LA 1.3 blood cultures pending continue IV ceftriaxone, azithromycin started 03/28 follow strep pneumo and Legionella urine antigen check RPP Not currently requiring supplemental oxygen hyponatremia, likely acute sodium 124, up to 126 after 1L NS ED discussed with Nephrology-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 Dave Given pneumonia and hyponatremia patient will likely require 2 midnight stay in the hospital for IV antibiotics, close monitoring of sodium levels and specialist evaluation <ERASMO Staton - Last Filed: 03/28/23 15:50> This is a 52-year-old male with history of HIV presents to the emergency department with several days of cough, shortness of breath, chills, diarrhea, headache found to have pneumonia and hyponatremia sepsis secondary to Community acquired pneumonia meets criteria with tachycardia and elevated RR LA 1.3 blood cultures pending continue IV ceftriaxone, azithromycin started 03/28 follow strep pneumo and Legionella urine antigen check RPP Not currently requiring supplemental oxygen hyponatremia, likely acute sodium 124, up to 126 after 1L NS ED discussed with Nephrology-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 Dave Given pneumonia and hyponatremia patient will likely require 2 midnight stay in the hospital for IV antibiotics, close monitoring of sodium levels and specialist evaluation 52yo M with well-controlled HIV on Genvoya (viral load undetectable + CD4 1010 on 02/02/23, followed by Dr Blake) presenting with close to 1 month of malaise + dry cough. No travel/exposure history. Found to be hyponatremic to 124 and with patchy airspace opacities on CXR. Plan CT chest, follow BCx, check resp virus panel + urinary antigens, give ceftriaxone + azithro. HypoNa likely from SIADH + volume depletion. Has received 1L IV NS- moving forward, will water-restrict and monitor Na. <Amanda Dave MD - Last Filed: 03/28/23 18:42> Time Spent With Patient Time: Total time managing care of this patient today ____ minutes. <ERASMO Staton - Last Filed: 03/28/23 15:50> Quality Stroke Does the patient have a stroke diagnosis?: No <ERASMO Staton - Last Filed: 03/28/23 15:50> VTE Prior VTE?: No <ERASMO Staton - Last Filed: 03/28/23 15:50> VTE Risk Level:: Medical - moderate - high <ERASMO Staton - Last Filed: 03/28/23 15:50> VTE Device Contraindication: N/A - Device Ordered <ERASMO Staton - Last Filed: 03/28/23 15:50> VTE Drug Contraindication: N/A - Med Ordered <ERASMO Staton - Last Filed: 03/28/23 15:50>
--- OUTSIDE RECORDS SUMMARY | 2023-03-28 16:40 | XMS_ITS | Continuity of Care Document ---
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 Name Role Phone Alin Howe MD Primary Care Physician [phone] [place] [facility] [place]/21 [facility] [address] [place] [id number] Allergies, Adverse Reactions, Alerts Substance Reaction Severity Status sulfa drugs not sure Active Immunizations Given and Recorded Vaccine Date Status Refusal Reason influenza virus vaccine, inactivated 09/05/20 Give n influenza virus vaccine, inactivated 08/25/19 Efren rded influenza virus vaccine, inactivated 1 10/14/18 Gi idalia influenza virus vaccine, inactivated 2, 3 11/12/17 Given influenza virus vaccine, inactivated 4 08/21/16 Gi idalia influenza virus vaccine, inactivated 08/17/14 Give n influenza virus vaccine, inactivated 08/25/13 Give n influenza virus vaccine, inactivated 09/23/12 Give n influenza virus vaccine, inactivated 08/28/11 Give n influenza virus vaccine, inactivated 07/21/10 Give n tetanus/diphtheria/pertussis, acel(Tdap) 5 10/14/18 Given Meningococcal Conjugate Vaccine 6 07/29/17 Given Meningococcal Conjugate Vaccine 7 05/28/17 Given Pneumovax 23 (oldterm) 01/01/17 Given Pneumovax 23 (oldterm) 8 11/04/07 Given pneumococcal 13-valent vaccine 09/02/14 Given Influenza Inactive (IM) (oldterm) 9 08/22/09 Given Influenza Inactive (IM) (oldterm) 10 07/19/08 Give n 1Admin Note: VIS GIVEN. Flucelvax quadrivalent 2Result Comment: [11/12/2017] [facility] # [id number] 3Admin Note: Afluria quadrivalent 4Admin Note: Afluria made by [employer] 5Admin Note: Boostrix VIS GIVEN 6Admin Note: #2 Menveo 7Admin Note: #1 8Admin Note: Dr. Chicas records 9Admin Note: seasonal 10Admin Note: vis given Medications 0.2% nifedipine in hydrophilic ointment 0.2% nifedipine in hydrophilic ointment, See Instructions, # 60 Gm, Refills 2, Tot. Refills 2, Maintenance, apply pea size amount to the fissure, 01/01/14 16:12:05, Compound Start Date: 01/01/14 Status: Ordered Colace sodium 100 mg oral capsule 100 mg, 1, capsule, By Mouth, 2 times a day, PRN, # 60 capsule, Refills 4, Tot. Refills 4, Maintenance, for constipation, 02/01/17 16:55:32, Print Requisition Start Date: 02/01/17 Status: Ordered Genvoya oral tablet 1 tablet, By Mouth, Daily, with food, # 90 tablet, 3 Refills, Maintenance, 11/28/20 13:38:00 EST, Tablet, [facility], 1 tablet By Mouth Daily,x90 days,Instr:with food, 182, cm, 08/29/20 8:56:00 EST, Height Start Date: 11/28/20 Stop Date: 11/23/21 Status: Ordered ibuprofen 800 mg oral tablet 800 mg, 1, tablet, By Mouth, Daily, with food or milk, # 90 tablet, Refills 0, Tot. 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
--- OUTSIDE RECORDS SUMMARY | 2023-03-28 16:40 | XMS_ITS | Continuity of Care Document ---
Author Name Unknown Organization [facility] Address [address] [place] [address]- Care Team Providers Care Employee Welfare Manager Name Role Phone Alin Howe MD Primary Care Physician [place] [facility] [place]): [place]22 [facility] [address] [place] [id number] Attending Physician: Mara Fairchild Admitting Physician: AdmMara mi Referring Physician: AdmtrMara Allergies, Adverse Reactions, Alerts Substance Reaction Severity Status sulfa drugs not sure Active Immunizations Given and Recorded Vaccine Date Status Refusal Reason zoster vaccine, inactivated 1 10/10/21 Given zoster vaccine, inactivated 2 05/16/21 Given influenza virus vaccine, inactivated 09/09/21 Efren rded influenza virus vaccine, inactivated 09/05/20 Give n influenza virus vaccine, inactivated 08/25/19 Efren rded influenza virus vaccine, inactivated 3 10/14/18 Gi idalia influenza virus vaccine, inactivated 4, 5 11/12/17 Given influenza virus vaccine, inactivated 6 08/21/16 Gi idalia influenza virus vaccine, inactivated 08/17/14 Give n influenza virus vaccine, inactivated 08/25/13 Give n influenza virus vaccine, inactivated 09/23/12 Give n influenza virus vaccine, inactivated 08/28/11 Give n influenza virus vaccine, inactivated 07/21/10 Give n SARS-CoV-2 (COVID-19) mRNA BNT-162b2 vac 09/09/21 Recorded SARS-CoV-2 (COVID-19) mRNA BNT-162b2 vac 03/10/21 Recorded SARS-CoV-2 (COVID-19) mRNA BNT-162b2 vac 02/10/21 Recorded SARS-CoV-2 mRNA (tozinameran 5y-11y) vax 7 03/10/21 Recorded SARS-CoV-2 mRNA (tozinameran 5y-11y) vax 8 02/10/21 Recorded tetanus/diphtheria/pertussis, acel(Tdap) 9 10/14/18 Given Meningococcal Conjugate Vaccine 10 07/29/17 Given Meningococcal Conjugate Vaccine 11 05/28/17 Given Pneumovax 23 (oldterm) 01/01/17 Given Pneumovax 23 (oldterm) 12 11/04/07 Given pneumococcal 13-valent vaccine 09/02/14 Given Influenza Inactive (IM) (oldterm) 13 08/22/09 Give n Influenza Inactive (IM) (oldterm) 14 07/19/08 Give n 1Result Comment: Second dose 2Result Comment: First Dose 4P2NP 07/21/2022 3Admin Note: VIS GIVEN. Flucelvax quadrivalent 4Result Comment: [11/12/2017] [facility] # [id number] 5Admin Note: Afluria quadrivalent 6Admin Note: Afluria made by Seqirus 7Result Comment: NEED TO ADD VACCINE INFO 8Result Comment: NEED TO ADD VACCINE TYPE 9Admin Note: Boostrix VIS GIVEN 10Admin Note: #2 Menveo 11Admin Note: #1 12Admin Note: Dr. Chicas records 13Admin Note: seasonal 14Admin Note: vis given Medications Colace sodium 100 mg oral capsule 100 mg, 1, capsule, By Mouth, 2 times a day, PRN, # 60 capsule, Refills 4, Tot. Refills 4, Maintenance, for constipation, 02/01/17 16:55:32, Print Requisition Start Date: 02/01/17 Status: Ordered gabapentin 100 mg oral capsule 100 mg, 1, capsule, By Mouth, Daily at bedtime, # 30 capsule, Refills 0, Maintenance, 03/27/22 16:51:00 EDT, Partial fill upon patient request if the prescription is for a schedule II opioid drug. Start Date: 03/27/22 Status: Ordered Genvoya oral tablet 1 tablet, By Mouth, Daily, with food, # 30 tablet, 11 Refills, Maintenance, 04/29/22 14:44:00 EDT, Tablet, [facility], 1 tablet By Mouth Daily,Instr:with food, 182, cm, 03/27/22 16:05:00 EDT, Height Start Date: 04/29/22 Status: Ordered Genvoya oral tablet 1 tablet, By Mouth, Daily, for 90 days, with food, # 90 tablet, 1 Refills, Hard Stop 04/29/22 14:44:00 EDT, 10/31/21 14:44:00 EST, Tablet, [facility], 182, cm, 10/10/21 13:58:00 EST, Height Start Date: 10/31/21 Stop Date: 04/29/22 Status: Ordered ibuprofen 800 mg oral tablet 800 mg, 1, tablet, By Mouth, 3 times a day, PRN, with food or milk, # 90 tablet, Refills 0, Tot. Refills 0, Maintenance, for pain, 04/30/22 14:38:00 EDT, Route to Pharmacy Electronically, [facility], Partial fill upon patient request if the prescription... Start Date: 04/30/22 Stop Date: 07/29/22 Status: Ordered ibuprofen 800 mg oral tablet 800 mg, 1, tablet, By Mouth, 3 times a day, PRN, for 90 days, with food or milk, # 90 tablet, Refills 0, Tot. Refills 0, Hard Stop 07/12/22 14:22:00 EDT, for pain, 04/13/22 14:22:00 EDT, Route to Pharmacy Electronically, [facility]/pharmacy #[id number], Partial fi... 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.RxBenzathiine PCNx3 Vital Signs Most recent to oldest [Reference Range]: 1 2 Height 177.80 cm (09/22/13 8:40 AM) 177.80 cm (10/26/10 9:08 AM) Weight 74.4 kg (09/22/13 8:40 AM) 74.000 kg (10/26/10 9:08 AM) Pulse Rate [55-90 bpm] 84 bpm (09/22/13 8:40 AM) 84 bpm (10/26/10 9:08 AM) Body Mass Index [18.50-24.99] 23.53 (09/22/13 8:40 AM) 23.41 (10/26/10:08 AM) Blood Pressure [90-138/55-84 mm Hg] 118/ 80mm Hg (09/22/13 8:40 AM) 102/64mm Hg (10/26/10 9:08 AM) Respiratory Rate [16-30 br/min] 18 br/mi n (09/22/13 8:40 AM) 18 br/min (10/26/10 9:08 AM) Temperature [96.8-100.4 DegF] 97.0 DegF (09/22/13 8:40 AM) 97.2 DegF (10/26/10 9:08 AM) Blood pressure sites Arm, right (09/22/13 8:40 AM) Arm, right (10/26/10 9:08 AM) Temperature Route Tympanic (09/22/13 8:40 AM) Weight Obtained Via Standing scale (09/22/13 8:40 AM) Social History Social History Type Response Smoking Status Never smoker; Tobacc o user in household: No entered on: 03/09/14 Sex
--- OUTSIDE RECORDS SUMMARY | 2023-03-28 16:40 | XMS_ITS | Continuity of Care Document ---
Author Name Unknown Organization [facility] Address [address] [place] [address] [address] [place] [address]- Care Team Providers Care Trimmer Sawyer Name Role Phone Alin Howe MD Primary Care Physician [place] [facility] [place] [facility] [place] 04/27/20 - 05/04/20 [facility] [address] [place] [address]- [facility] Encounter Diagnosis Anal dysplasia(Discharge Diagnosis) - 04/27/20 Attending Physician: Fidencio ALEXIS, Peyton Warren Referring Physician: Alin Howe MD Allergies, Adverse Reactions, Alerts Substance Reaction Severity Status sulfa drugs not sure Active Immunizations Given and Recorded Vaccine Date Status Refusal Reason influenza virus vaccine, inactivated 08/25/19 Efren rded [...] VIS GIVEN. Flucelvax quadrivalent 2Result Comment: [11/12/2017] [facility] # [id number] 3Admin Note: Afluria quadrivalent 4Admin Note: Afluria [...] Print Requisition Start Date: 02/01/17 Status: Ordered Flonase 50 mcg/inh nasal spray 1 sprays, Nares, Both, 2 times a day, 0 Refills, Maintenance, 01/27/19 8:50:53 EDT, [place] Start Date: 01/27/19 Status: Ordered Genvoya oral tablet 1 tablet, By Mouth, Daily, with food, # 90 tablet, 3 Refills, Maintenance, 02/05/20 16:11:00 EDT, Tablet, [facility], 1 tablet By Mouth Daily,x90 days,Instr:with food, 182, cm, 11/11/19 13:17:00 EST, Height Start Date: 02/05/20 Stop Date: 01/30/21 Status: Ordered ibuprofen 800 mg oral tablet 800 mg, 1, tablet, By Mouth, Daily, with food or milk, # 90 tablet, Refills 1, Tot. Refills 1, Maintenance, 02/05/20 16:11:00 EDT, Route to Pharmacy Electronically, [facility], 182,cm, 11/11/19 13:17:00 EST, Height Start Date: 02/05/20 Stop Date: 08/03/20 Status: Ordered ibuprofen 800 mg oral tablet 800 mg, 1, tablet, By Mouth, Daily, # 30 tablet, Refills 0, Tot. Refills 0, Maintenance, 12/19/18 11:24:00 EST, Route to Pharmacy Electronically, [id number], [facility]/pharmacy #[id number] Start Date: 12/19/18 Status: Ordered Imodium A-D 2 mg oral tablet 2 mg, 1, tablet, By Mouth, 2 times a day, Titrate for effectiveness, # 60 tablet, Refills 3, Tot. Refills 3, Maintenance, 04/27/20 10:25:00 EDT, Route to Pharmacy Electronically, [facility]/pharmacy #[id number], 182, cm, 11/11/19 13:17:00 EST, Height Start Date: 04/27/20 Status: Ordered miconazole = 50 mg, Daily, 0 Refills, Maintenance Start Date: 01/23/10 Status: Ordered ZyrTEC 10 mg oral tablet 1 tablet = 10 mg, By Mouth, Daily, PRN for allergy symptoms, # 30 tablet, 0 Refills, Maintenance, 02/19/17 10:04:00, Tablet Start Date: 02/19/17 Status: Ordered ZyrTEC 10 mg oral tablet 1 tablet = 10 mg, By Mouth, Daily, PRN for allergy symptoms, # 90 tablet, 1 Refills, Maintenance, 02/19/17 10:04:00, Tablet Start Date: 02/19/17 Status: Ordered Problem List Condition Effective Dates Status Health Status Inform ant Acquired syphilis(Confirmed) 1 Active AIN - Anal intraepithelial neoplasia(Confirmed) Active Allergic rhinitis(Confirmed) Active Constipation(Confirmed) Active HIV(Confirmed) Active Onychomycosis(Confirmed) Active Tinea pedis(Confirmed) Active 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
--- OUTSIDE RECORDS SUMMARY | 2023-03-28 16:40 | XMS_ITS | Continuity of Care Document ---
Author Name Unknown Organization [facility] Address [address] [place] [address] [address] [place] [address]- Care Team Providers Care Retail Attendant Name Role Phone Alin Howe MD Primary Care Physician Encounter [facility] Date(s): 01/18/23 - 02/17/23 [facility] [address] [place], [place] [address] Allergies, Adverse Reactions, Alerts Substance Reaction Severity Status sulfa drugs not sure Active Immunizations Given and Recorded Vaccine Date Status Refusal Reason influenza virus vaccine, inactivated 09/01/22 Efren rded influenza virus vaccine, inactivated 09/09/21 Efren rded [...] influenza virus vaccine, inactivated 07/21/10 Give n [id number] bivalent booster vax 09/01/22 Recorded SARS-CoV-2 (COVID-19) mRNA-1273 vaccine 04/01/22 R ecorded zoster vaccine, inactivated 5 10/10/21 Given zoster vaccine, inactivated 6 05/16/21 Given SARS-CoV-2 (COVID-19) mRNA BNT-162b2 vac 09/09/21 Recorded [...] Inactive (IM) (oldterm) 14 07/19/08 Give n 1Admin Note: VIS GIVEN. Flucelvax quadrivalent 2Result Comment: [11/12/2017] [facility] # [id number] 3Admin Note: Afluria quadrivalent 4Admin Note: Afluria made by Seqirus 5Result Comment: Second dose 6Result Comment: First Dose 4P2NP 07/21/2022 7Result Comment: NEED TO ADD VACCINE INFO [...] EDT, Height Start Date: 04/29/22 Status: Ordered Imodium A-D 2 mg oral tablet 2 mg, 1, tablet, By Mouth, 2 times a day, Titrate for effectiveness, # 60 tablet, Refills 3, Tot. Refills 3, Maintenance, 09/28/22 13:15:00 EST, Route to Pharmacy Electronically, [facility]/pharmacy #[id number], 182, cm, 07/20/22 8:42:00 EDT, Height Start Date: 09/28/22 Status: Ordered Imodium A-D 2 mg oral tablet 2 mg, 1, tablet, By Mouth, 2 times a day, Titrate for effectiveness, # 180 tablet, Refills 4, Tot. Refills 4, Maintenance, 01/03/23 8:44:00 EST, Route to Pharmacy Electronically, [facility]/pharmacy #[id number], 182, cm, 11/30/22 9:14:00 EST, Height Start Date: 01/03/23 Status: Ordered miconazole = 50 mg, Daily, 0 Refills, Maintenance Start Date: 01/23/10 Status: Ordered terbinafine 250 mg oral tablet 1 tablet = 250 mg, By Mouth, Daily, for 30 days, # 30 tablet, 3 Refills, Acute 06/05/23 10:22:00 EDT, 02/05/23 10:22:00 EDT, Tablet, [facility]/pharmacy #[id number], Partial fill upon patient request if the prescription is for a schedule II opioid drug., 182, cm,... Start Date: 02/05/23 Stop Date: 06/05/23 Status: Ordered Problem List Condition Confirmation Course Effective Dates Status H ealth Status Informant Acquired syphilis 1 Confirmed Active AIN - Anal intraepithelial neoplasia Confirmed Active Allergic rhinitis Confirmed Active Constipation Confirmed Active HIV Confirmed Active Onychomycosis Confirmed Active Tinea pedis Confirmed Active 1dx 2015.latent.syphilis.RxBenzathiine PCNx3 Social History Social History Type Response Smoking Status Never smoker; Tobacc o user in household: No entered on: 03/09/14 Sex Patient Care team information Care Team Personnel Name: Alin Howe MD Position: [facility] Physician (General Medicine) Member Role: PCP Address: Address: [address] [place] [id number]- Name: Parent RNLuz Position: [facility] SN Electrical Foreman Member Role: Primary Care Nurse Name: Dread Blake MD Position: [facility] Infectious Disease MD Member Role: Lifetime Consulting Physician Address: Address: [address] [place] [address] [place] [address]- Care Team Related Persons Name: POOL HARDY Address: home [address] [place] [address]
--- OUTSIDE RECORDS SUMMARY | 2023-03-28 16:40 | XMS_ITS | Continuity of Care Document ---
Author Name Unknown Organization [facility] Address [address] [place] [address]- Care Team Providers Care Internet Researcher Name Role Phone Alin Howe MD Primary Care Physician Encounter [facility] Date(s): 06/08/20 - 07/08/20 [facility] [address] [place] [address]- [facility] Allergies, Adverse Reactions, Alerts Substance Reaction Severity [...] VIS GIVEN. Flucelvax quadrivalent 2Result Comment: [11/12/2017] [facility] # [id number] 3Admin Note: Afluria quadrivalent 4Admin Note: Afluria [...] 3 Refills, Maintenance, 02/05/20 16:11:00 EDT, Tablet, [facility], 1 tablet By Mouth Daily,x90 days,Instr:with food, 182, cm, 11/11/19 13:17:00 EST, Height Start Date: 02/05/20 Stop Date: 01/30/21 Status: Ordered ibuprofen 800 mg oral tablet 800 mg, 1, tablet, By Mouth, Daily, with food or milk, # 90 tablet, Refills 1, Tot. Refills 1, Maintenance, 02/05/20 16:11:00 EDT, Route to Pharmacy Electronically, [facility], 182,cm, 11/11/19 13:17:00 EST, Height Start Date: 02/05/20 Stop Date: 08/03/20 Status: Ordered ibuprofen 800 mg oral tablet 800 mg, 1, tablet, By Mouth, Daily, # 30 tablet, Refills 0, Tot. Refills 0, Maintenance, 12/19/18 11:24:00 EST, Route to Pharmacy Electronically, [id number], [facility]/pharmacy #[id number] Start Date: 12/19/18 Status: Ordered Imodium A-D 2 mg oral tablet 2 mg, 1, tablet, By Mouth, 2 times a day, Titrate for effectiveness, # 60 tablet, Refills 5, Tot. Refills 5, Maintenance, 05/13/20 8:58:00 EDT, [facility] Pharm[facility], [facility], 182, cm, 11/11/19 13:17:00 EST, Height Start Date: 05/13/20 Status: Ordered loperamide 2 mg oral capsule 2 mg, 1, capsule, By Mouth, 2 times a day, titrate for effectiveness, # 60 capsule, Refills 5, Tot.Refills 5, Maintenance, 05/16/20 8:49:00 EDT, Print Requisition, 182, cm, 11/11/19 13:17:00 EST, Height Start Date: 05/16/20 Status: Ordered miconazole = 50 mg, Daily, [...]
--- OUTSIDE RECORDS SUMMARY | 2023-03-28 16:40 | XMS_ITS | Continuity of Care Document ---
Author Name Unknown Organization [facility] Address Unknown Care Team Providers Care Microsoft Application Developer Name Role Phone Alin Howe MD Primary Care Physician [phone] Encounter [facility] [place] [facility] R [id number] Date(s): 06/20/21 - 06/27/21 [facility] Attending Physician: Fidencio ALEXIS, Peyton Warren Referring Physician: Alin Howe MD Allergies, Adverse Reactions, Alerts Substance Reaction Severity Status sulfa drugs not sure Active Immunizations Given and Recorded Vaccine Date Status Refusal Reason zoster vaccine, inactivated 1 05/16/21 Given influenza virus vaccine, inactivated 09/05/20 Give n influenza virus vaccine, inactivated 08/25/19 Efren rded influenza virus vaccine, inactivated 2 10/14/18 Gi idalia influenza virus vaccine, inactivated 3, 4 11/12/17 Given influenza virus vaccine, inactivated 5 08/21/16 Gi idalia influenza virus vaccine, inactivated 08/17/14 Give n influenza virus vaccine, inactivated 08/25/13 Give n influenza virus vaccine, inactivated 09/23/12 Give n influenza virus vaccine, inactivated 08/28/11 Give n influenza virus vaccine, inactivated 07/21/10 Give n tetanus/diphtheria/pertussis, acel(Tdap) 6 10/14/18 Given Meningococcal Conjugate Vaccine 7 07/29/17 Given Meningococcal Conjugate Vaccine 8 05/28/17 Given Pneumovax 23 (oldterm) 01/01/17 Given Pneumovax 23 (oldterm) 9 11/04/07 Given pneumococcal 13-valent vaccine 09/02/14 Given Influenza Inactive (IM) (oldterm) 10 08/22/09 Give n Influenza Inactive (IM) (oldterm) 11 07/19/08 Give n 1Result Comment: First Dose 4P2NP 07/21/2022 2Admin Note: VIS GIVEN. Flucelvax quadrivalent 3Result Comment: [11/12/2017] [facility] # [id number] 4Admin Note: Afluria quadrivalent 5Admin Note: Afluria made by Seqirus 6Admin Note: Boostrix VIS GIVEN 7Admin Note: #2 Menveo 8Admin Note: #1 9Admin Note: Dr. Chicas records 10Admin Note: seasonal 11Admin Note: vis given Medications Colace sodium 100 [...] Date: 03/08/21 Stop Date: 06/06/21 Status: Ordered ibuprofen 800 mg oral tablet 800 mg, 1, tablet, By Mouth, 3 times a day, PRN, with food or milk, # 50 tablet, Refills 5, Tot. Refills 5, Maintenance, for pain, 05/16/21 14:38:00 EDT, Route to Pharmacy Electronically, [facility], Partial fill upon patient request if the prescription... 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
--- OUTSIDE RECORDS SUMMARY | 2023-03-28 16:40 | XMS_ITS | Continuity of Care Document ---
Author Name Unknown Organization [facility] Address [address] [place] [address] [address] [place] [address]- Care Team Providers Care Dull Coat Mill Operator Name Role Phone Carley COPE, Alin Carmen Primary Care Physician Encounter [facility] [place] Date(s): 12/07/20 - 12/14/[address] [place] [address]- Encounter Diagnosis AIN grade III(Discharge Diagnosis) - 12/07/20 Attending Physician: Fidencio ALEXIS, Peyton Warren Referring Physician: Dread Blake MD Allergies, Adverse Reactions, Alerts Substance Reaction [...] GIVEN. Flucelvax quadrivalent 2Result Comment: [11/12/2017] [facility] # [id number] 3Admin Note: Afluria quadrivalent 4Admin Note: Afluria [...] tablet, Refills 0, Tot. Refills 0, Maintenance, 10/05/20 12:20:00 EST, Route to Pharmacy Electronically, [facility], 182,cm, 08/29/20 8:56:00 EST, Height Start Date: 10/05/20 Stop Date: 01/03/21 Status: Ordered miconazole = 50 mg, Daily, [...] Dates Health Status Cl inical Service Informant AIN grade III Discharge Diagnosis 12/07/20 Social History Social History Type Response Smoking Status Never smoker; Tobacc o user in household: No entered on: 03/09/14 Sex
--- OUTSIDE RECORDS SUMMARY | 2023-03-28 16:40 | XMS_ITS | Continuity of Care Document ---
Author Name Unknown Organization [facility] Address [address] [place] [address]- Care Team Providers Care Tester/Lift Trucker Name Role Phone Alin Howe MD Primary Care Physician Encounter [facility] [place] Date(s): 11/29/20 - 12/29/20 [facility] [address] [place] [address] Attending Physician: Mara Fairchild Admitting Physician: AdmMara mi Referring Physician: Admtr, Mara Allergies, Adverse Reactions, Alerts Substance Reaction Severity [...] VIS GIVEN. Flucelvax quadrivalent 2Result Comment: [11/12/2017] [facility] # [id number] 3Admin Note: Afluria quadrivalent 4Admin Note: Afluria [...] 800 mg, 1, tablet, By Mouth, Daily, for 90 days, with food or milk, # 90 tablet, Refills 0, Tot. Refills 0, Hard Stop 01/03/21 12:20:00 EST, 10/05/20 12:20:00 EST, Route to Pharmacy Electronically, [facility], 182, cm, 08/29/20 8:56:... Start Date: 10/05/20 Stop Date: 01/03/21 Status: Ordered ibuprofen 800 mg oral tablet 800 mg, 1, tablet, By Mouth, Daily, with food or milk, # 90 tablet, Refills 0, Tot. Refills 0, Maintenance, 12/15/20 13:56:00 EST, Route to Pharmacy Electronically, [facility], 182, cm, 08/29/20 8:56:00EST, Height Start Date: 12/15/20 Stop Date: 03/15/21 Status: Ordered miconazole = 50 mg, Daily, [...] Active Onychomycosis(Confirmed) Active Tinea pedis(Confirmed) Active 1dx 2016.latent.syphilis.RxBenzathiine PCNx3 Vital Signs Most recent to oldest [Reference Range]: 1 2 Height 177.80 cm (09/22/13 8:40 AM) 177.80 cm (10/26/10 9:08 AM) Weight 74.4 kg (09/22/13 8:40 AM) 74.000 kg (10/26/10 9:08 AM) Pulse Rate [55-90 bpm] 84 bpm (09/22/13 8:40 AM) 84 bpm (10/26/10 9:08 AM) Body Mass Index [18.50-24.99] 23.53 (09/22/13 8:40 AM) 23.41 (10/26/10 9:08 AM) Blood Pressure [90-138/55-84 mm Hg] 118/ [...]
--- OUTSIDE RECORDS SUMMARY | 2023-03-28 16:40 | XMS_ITS | Continuity of Care Document ---
Author Name Unknown Organization [facility] Address [address] [place] [address] [address] [place] [address]- Care Team Providers Care Comparator Operator Name Role Phone Alin Howe MD Primary Care Physician [phone] Encounter [facility] Date(s): 01/16/23 - 02/15/23 [facility] [address] [place], [place] [address] Allergies, Adverse Reactions, Alerts Substance Reaction Severity [...] influenza virus vaccine, inactivated 07/21/10 Give n [id number] bivalent booster vax 09/01/22 Recorded SARS-CoV-2 (COVID-19) [...] VIS GIVEN. Flucelvax quadrivalent 2Result Comment: [11/12/2017] [facility] # [id number] 3Admin Note: Afluria quadrivalent 4Admin Note: Afluria [...] 09/28/22 13:15:00 EST, Route to Pharmacy Electronically, [facility]/pharmacy #[id number], 182, cm, 07/20/22 8:42:00 EDT, Height Start Date: 09/28/22 Status: Ordered Imodium A-D 2 mg oral tablet 2 mg, 1, tablet, By Mouth, 2 times a day, Titrate for effectiveness, # 180 tablet, Refills 4, Tot. Refills 4, Maintenance, 01/03/23 8:44:00 EST, Route to Pharmacy Electronically, [facility]/pharmacy #[id number], 182, cm, 11/30/22 9:14:00 EST, Height Start Date: 01/03/23 Status: Ordered miconazole = 50 mg, Daily, 0 Refills, Maintenance Start Date: 01/23/10 Status: Ordered terbinafine 250 mg oral tablet 1 tablet = 250 mg, By Mouth, Daily, for 30 days, # 30 tablet, 3 Refills, Acute 06/05/23 10:22:00 EDT, 02/05/23 10:22:00 EDT, Tablet, [facility]/pharmacy #[id number], Partial fill upon patient request if [...] Name: Alin Howe MD Position: [facility] Physician (General Medicine) Member Role: PCP Address: Address: [address] [place] [address]- Name: Parent RNLuz Position: [facility] SN Data Services Developer Member Role: Primary Care Nurse Name: Dread Blake MD Position: [facility] Infectious Disease MD Member Role: Lifetime Consulting Physician Address: Address: [address] [place] [address] [place] [address]- Care Team Related Persons Name: POOL HARYD Address: home [address] [place] [address]
--- OUTSIDE RECORDS SUMMARY | 2023-03-28 16:40 | XMS_ITS | Continuity of Care Document ---
Author Name Unknown Organization [facility] Address [address] [place] [address]- Care Team Providers Care Academy Director Name Role Phone Alin Howe MD Primary Care Physician Encounter [facility] Date(s): 02/05/23 - 03/07/23 [facility] [address] [place] [id number] Attending Physician: Mara Fairchild Admitting Physician: Mara Fairchild Referring Physician: AdmtrMara Allergies, Adverse Reactions, Alerts [...] influenza virus vaccine, inactivated 07/21/10 Give n [id number] bivalent booster vax 09/01/22 Recorded SARS-CoV-2 (COVID-19) [...] VIS GIVEN. Flucelvax quadrivalent 2Result Comment: [11/12/2017] [facility] # [id number] 3Admin Note: Afluria quadrivalent 4Admin Note: Afluria [...] EDT, Height Start Date: 04/29/22 Status: Ordered ibuprofen 800 mg oral tablet 800 mg, 1, tablet, By Mouth, 3 times a day, for 90 days, not to exceed 3200 mg/day with food or milk, # 270 tablet, Refills 0, Tot. Refills 0, Physician Stop 05/20/23 15:13:00 EDT, 02/19/23 15:13:00 EDT, Route to Pharmacy Electronically, [facility]... Start Date: 02/19/23 Stop Date: 05/20/23 Status: Ordered Imodium A-D 2 mg oral tablet 2 mg, 1, tablet, By Mouth, 2 times a day, Titrate for effectiveness, # 180 tablet, Refills 4, Tot. Refills 4, Maintenance, 03/05/23 14:58:00 EDT, Route to Pharmacy Electronically, [facility]/pharmacy #[id number],182, cm, 02/26/23 10:16:00 EDT, Height Start Date: 03/05/23 Status: Ordered Imodium A-D 2 mg oral tablet 2 mg, 1, tablet, By Mouth, 2 times a day, Titrate for effectiveness, # 60 tablet, Refills 3, Tot. Refills 3, Maintenance, 09/28/22 13:15:00 EST, Route to Pharmacy Electronically, 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.RxBenzathiine PCNx3 Vital Signs Most recent to oldest [...] Social History Type Response Smoking Status Never (less than 100 in lifetime) entered on: 02/26/23 Sex Laboratory * Event Display: Laboratory Result Scanned Authored Date: * Event Display: Laboratory Result Scanned Authored Date: * Event Display: Laboratory Result Scanned Authored Date: Radiology * Event Display: MRI Spine, Non- BH Authored Date: Patient Care team information Care Team Personnel Name: Alin Howe MD Position: [facility] Physician (General Medicine) Member Role: PCP Address: Address: [address] [place] [address] Name: Parent Luz BRICEÑO Position: [facility] SN Junior High School Teacher Member Role: Primary Care Nurse Name: Dread Blake MD Position: [facility] Infectious Disease MD Member Role: Lifetime Consulting Physician Address: Address: [address] [place] [address] [place] [address]- Care Team Related Persons Name: POOL HARDY Address: home [address] [place] [address]
--- OUTSIDE RECORDS SUMMARY | 2023-03-28 16:40 | XMS_ITS | Continuity of Care Document ---
Author Name Unknown Organization [facility] Address Unknown Care Team Providers Care Legal Nurse Consultant Name Role Phone Alin Howe MD Primary Care Physician En[id number] Date(s): 09/22/21 - 09/29/21 [facility] Attending Physician: Fidencio ALEXIS, [...] VIS GIVEN. Flucelvax quadrivalent 3Result Comment: [11/12/2017] [facility] # [id number] 4Admin Note: Afluria quadrivalent 5Admin Note: Afluria [...] oldest [Reference Range]: 1 Height 182 cm (09/22/21 8:58 AM) Pulse Rate [55-90 bpm] 98 bpm *H* (09/22/21 8:58 AM) Blood Pressure [90-138/55-84 mm Hg] 123/ 90mm Hg (09/22/21 8:58 AM) Respiratory Rate [16-30 br/min] 16 br/mi n (09/22/21 8:58 AM) Temperature [96.8-100.4 DegF] 98 DegF (09/22/21 8:58 AM) Social History Social History Type Response Smoking Status Never smoker; Tobacc o user in household: No entered on: 03/09/14 Sex
--- OUTSIDE RECORDS SUMMARY | 2023-03-28 16:41 | XMS_ITS | Continuity of Care Document ---
Author Name Unknown Organization [facility] Address [address] [place] [address] [address] [place] [address]- Care Team Providers Care Client Associate Name Role Phone Alin Howe MD Primary Care Physician [phone] Encounter [facility] Date(s): 12/16/20 - 01/15/[address] [place] [address]- Allergies, Adverse Reactions, Alerts Substance Reaction Severity [...] GIVEN. Flucelvax quadrivalent 2Result Comment: [11/12/2017] [facility] # [id number] 3Admin Note: Afluria quadrivalent 4Admin Note: Afluria [...] 12/15/20 13:56:00 EST, Route to Pharmacy Electronically, [facility], 182, cm, [...]
--- OUTSIDE RECORDS SUMMARY | 2023-03-28 16:41 | XMS_ITS | Continuity of Care Document ---
Author Name Unknown Organization [facility] Disease Address [address] [place] [address]- Care Team Providers Care Shrinker Name Role Phone Alin Howe MD Primary Care Physician Encounter [facility] Date(s): 04/13/22 - 05/13/22 [facility] [address] [place] [address] Allergies, Adverse Reactions, Alerts Substance Reaction [...] VIS GIVEN. Flucelvax quadrivalent 4Result Comment: [11/12/2017] [facility] # [id number] 5Admin Note: Afluria quadrivalent 6Admin Note: Afluria [...] Status: Ordered ibuprofen 800 mg oral tablet See Instructions, TAKE 1 TABLET BY MOUTH 3 TIMES A DAYL NEEDED FOR PAIN WITH FOOD OR MILK, # 90 tablet, Refills 0, Instructions Replace Required Details, Route to Pharmacy Electronically, [id number], 182, cm, 03/27/22 16:05:00 EDT, Height Start Date: 05/10/22 Status: Ordered miconazole = 50 mg, Daily, [...]
--- OUTSIDE RECORDS SUMMARY | 2023-03-28 16:41 | XMS_ITS | Continuity of Care Document ---
Author Name Unknown Organization [facility] Address [address] [place] [address] [address] [place] [address]- Care Team Providers Care Marble Polisher Name Role Phone Carley COPE, Alin Carmen Primary Care Physician [phone] [facility] Date(s): 11/19/22 - 11/26/[address] [place], [place] [address] Encounter Diagnosis AIN - Anal intraepithelial neoplasia(Discharge Diagnosis) - 11/19/22 Attending Physician: Lana ALEXIS, Suzi Hidalgo Referring Physician: Alin Howe MD Allergies, Adverse [...] influenza virus vaccine, inactivated 07/21/10 Give n [id number] bivalent booster vax 09/01/22 Recorded SARS-CoV-2 (COVID-19) [...] VIS GIVEN. Flucelvax quadrivalent 2Result Comment: [11/12/2017] [facility] # [id number] 3Admin Note: Afluria quadrivalent 4Admin Note: Afluria [...] 09/28/22 13:15:00 EST, Route to Pharmacy Electronically, [id number], 182, cm, 07/20/22 8:42:00 EDT, Height Start Date: 09/28/22 Status: Ordered Imodium A-D 2 mg oral tablet 2 mg, 1, tablet, By Mouth, 2 times a day, Titrate for effectiveness, # 180 tablet, Refills 3, Tot. 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.RxBenzathiine PCNx3 Diagnosis Diagnosis Type Effective Dates Health Status Clinical Service Informant AIN - Anal intraepithelial neoplasia Discharge Diagnosis 11/19/22 Vital Signs Most recent to oldest [Reference Range]: 1 Height 182 cm (11/19/22 8:30 AM) Weight 85 kg (11/19/22 8:30 AM) Pulse Rate [55-90 bpm] 86 bpm (11/19/22 8:30 AM) Body Mass Index [18.5-24.99 kg/m2] 25.66 kg/m2 *H* (11/19/22 8:30 AM) Blood Pressure [90-138/55-84 mm Hg] 118/ 78mm Hg (11/19/22 8:30 AM) Temperature [96.8-100.4 DegF] 97.9 DegF (11/19/22 8:30 AM) Temperature Route Temporal (11/19/22 8:30 AM) Social History Social History Type Response Smoking Status Never smoker; Tobacc o user in household: No entered on: 03/09/14 Sex Patient Care team information Care Team Personnel Name: Alin Howe MD Position: [facility] Physician (General Medicine) Member Role: PCP Address: Address: [address] [place] [address]- Name: Parent Luz BRICEÑO Position: [facility] SN Reo Asset Manager Member Role: Primary Care Nurse Name: Dread Blake MD Position: [facility] Infectious Disease MD Member Role: Lifetime Consulting Physician Address: Address: [address] [place] [address] [place] [address]- Care Team Related Persons Name: POOL HARDY Address: home [address] [place] [address]
--- OUTSIDE RECORDS SUMMARY | 2023-03-28 16:41 | XMS_ITS | Continuity of Care Document ---
Author Name Unknown Organization [facility] Address [address] [place] [address]- Care Team Providers Care Patient Assistant Name Role Phone Carley COPE, Alin Carmen Primary Care Physician Encounter [facility] Date(s): 11/11/19 - 11/18/[address] [address]- [facility] Attending Physician: Peyton Nicolas NP Allergies, Adverse Reactions, Alerts Substance Reaction Severity [...] VIS GIVEN. Flucelvax quadrivalent 2Result Comment: [11/12/2017] [facility] # [id number] 3Admin Note: Afluria quadrivalent 4Admin Note: Afluria [...] 16:12:05, Compound Start Date: 01/01/14 Status: Ordered Afluria [id number] intramuscular suspension 0.5 mL, Intramuscular, Once, # 0.5 mL, 0 Refills, Soft Stop, 08/21/16 17:35:00 Start Date: 08/21/16 Status: Ordered Afluria intramuscular suspension 0.5 mL, Intramuscular, Once, # 0.5 mL, 0 Refills, Soft Stop, 08/07/16 11:46:00 Start Date: 08/07/16 Status: Ordered Afluria Quadrivalent [id number] intramuscular suspension 0.5 mL, Intramuscular, Once, # 0.5 mL, 0 Refills, Soft Stop, 11/12/17 10:19:00 Start Date: 11/12/17 Status: Ordered Boostrix (Tdap) intramuscular suspension 0.5 mL, Intramuscular, Once, # 0.5 mL, 0 Refills, Soft Stop, 10/14/18 9:46:00 EST, Suspension Start Date: 10/14/18 Status: Ordered Colace sodium 100 mg oral capsule 100 mg, 1, capsule, By Mouth, 2 times a day, PRN, # 60 capsule, Refills 4, Tot. Refills 4, Maintenance, for constipation, 02/01/17 16:55:32, Print Requisition Start Date: 02/01/17 Status: Ordered Flonase 50 mcg/inh nasal spray 1 sprays, Nares, Both, 2 times a day, 0 Refills, Maintenance, 01/27/19 8:50:53 EDT, [place] Start Date: 01/27/19 Status: Ordered Genvoya oral tablet 1 tablet, By Mouth, Daily, with food, # 90 tablet, 3 Refills, Maintenance, 01/27/19 8:55:22 EDT, Tablet, 1 tablet By Mouth Daily,Instr:with food Start Date: 01/27/19 Status: Ordered ibuprofen 800 mg oral tablet 800 mg, 1, tablet, By Mouth, Daily, with food or milk, # 90 tablet, Refills 3, Tot. Refills 3, Maintenance, 12/19/18 11:24:00 EST, Route to Pharmacy Electronically, [id number], [facility]) Start Date: 12/19/18 Stop Date: 12/14/19 Status: Ordered ibuprofen 800 mg oral tablet 800 mg, 1, tablet, By Mouth, Daily, # 30 tablet, Refills 0, Tot. Refills 0, Maintenance, 12/19/18 11:24:00 EST, Route to Pharmacy Electronically, [id number], [facility]/pharmacy #[id number] Start Date: 12/19/18 Status: Ordered influenza virus vaccine - intramuscular suspension 0.5 mL, Intramuscular, Once, Flucelvax Quadrivalent, # 0.5 mL, 0 Refills, Soft Stop, 10/14/18 9:46:00 EST, Suspension Start Date: 10/14/18 Status: Ordered Menveo intramuscular injection 0.5 mL, Intramuscular, Once, # 0.5 mL, 0 Refills, Soft Stop, 07/29/17 14:35:00 Start Date: 07/29/17 Status: Ordered Menveo intramuscular injection 0.5 mL, Intramuscular, Once, # 0.5 mL, 0 Refills, Soft Stop, 05/28/17 11:16:00 Start Date: 05/28/17 Status: Ordered miconazole = 50 mg, Daily, 0 Refills, Maintenance Start Date: 01/23/10 Status: Ordered Pneumovax 23 injectable solution 0.5 mL, Intramuscular, Once, # 0.5 mL, 0 Refills, Soft Stop, 01/01/17 11:19:00, Solution Start Date: 01/01/17 Status: Ordered Prevnar 13 intramuscular suspension 0.5 mL, Intramuscular, Once, # 1 each, 0 Refills, Soft Stop, 08/17/14 8:21:49, Suspension, 0.5 mL Intramuscular Once Start Date: 08/17/14 Status: Ordered ZyrTEC 10 mg oral tablet [...]
--- OUTSIDE RECORDS SUMMARY | 2023-03-28 16:41 | XMS_ITS | Continuity of Care Document ---
Author Name Unknown Organization [facility] Infectious Disease Address [address] [place] [address]- Care Team Providers Care Brickmason Name Role Phone Alin Howe MD Primary Care Physician [facility] Date(s): 11/11/19 - 11/21/19 [facility] [address] [place] [address]- [facility] Attending Physician: Mara Fairchild Admitting Physician: AdmtrMara Referring Physician: Admtr, Mara Allergies, Adverse Reactions, [...] GIVEN. Flucelvax quadrivalent 2Result Comment: [11/12/2017] [facility] # [id number] 3Admin Note: Afluria quadrivalent 4Admin Note: Afluria [...] Compound Start Date: 01/01/14 Status: Ordered Afluria intramuscular suspension 0.5 mL, Intramuscular, Once, # 0.5 mL, 0 Refills, Soft Stop, 08/21/16 17:35:00 Start Date: 08/21/16 Status: Ordered Afluria intramuscular suspension 0.5 mL, Intramuscular, Once, # 0.5 mL, 0 Refills, Soft Stop, 08/07/16 11:46:00 Start Date: 08/07/16 Status: Ordered Afluria Quadrivalent intramuscular suspension 0.5 mL, Intramuscular, Once, # [...] day, 0 Refills, Maintenance, 01/27/19 8:50:53 EDT, [place] Start Date: 01/27/19 Status: Ordered Genvoya oral [...] 12/19/18 11:24:00 EST, Route to Pharmacy Electronically, [id number], [facility]) Start Date: 12/19/18 Stop Date: 12/14/19 Status: Ordered ibuprofen 800 mg oral tablet 800 mg, 1, tablet, By Mouth, Daily, # 30 tablet, Refills 0, Tot. Refills 0, Maintenance, 12/19/18 11:24:00 EST, Route to Pharmacy Electronically, [id number], [facility]/pharmacy #[id number] Start Date: 12/19/18 Status: Ordered influenza [...]
--- OUTSIDE RECORDS SUMMARY | 2023-03-28 16:41 | XMS_ITS | Continuity of Care Document ---
Author Name Unknown Organization [facility] Infect[facility] Disease Address [address] [place] [address]- Care Team Providers Care Country Printer Apprentice Name Role Phone Alin Howe MD Primary Care Physician [phone] [facility] Date(s): 11/29/20 - 12/29/20 [facility] [address] [place] [address] Allergies, Adverse Reactions, Alerts Substance Reaction [...] VIS GIVEN. Flucelvax quadrivalent 2Result Comment: [11/12/2017] [facility] # [id number] 3Admin Note: Afluria quadrivalent 4Admin Note: Afluria [...] 10/05/20 12:20:00 EST, Route to Pharmacy Electronically, [facility], 182, cm, 08/29/20 8:56:... Start Date: [...]
--- OUTSIDE RECORDS SUMMARY | 2023-03-28 16:41 | XMS_ITS | Continuity of Care Document ---
Author Name Unknown Organization [facility] Address Unknown Care Team Providers Care Solder Deposit Operator Name Role Phone Alin Howe MD Primary Care Physician Encounter [facility] Date(s): 03/19/22 - 03/26/22 [facility] Attending Physician: Fidencio ALEXIS, Peyton [...] VIS GIVEN. Flucelvax quadrivalent 4Result Comment: [11/12/2017] [facility] # [id number] 5Admin Note: Afluria quadrivalent 6Admin Note: Afluria [...] Mouth, Daily, with food, # 90 tablet, 1 Refills, Maintenance, 10/31/21 14:44:00 EST, Tablet, [facility], 1 tablet By Mouth Daily,x90 days,Instr:with food, 182, cm, 10/10/21 13:58:00 EST, Height Start [...] 0, Tot. Refills 0, Maintenance, for pain, 01/30/22 14:38:00 EDT, Route to Pharmacy Electronically, [facility], Partial fill upon patient request if the prescription... Start Date: 01/30/22 Stop Date: 04/30/22 Status: Ordered miconazole = 50 mg, Daily, 0 Refills, Maintenance Start Date: 01/23/10 Status: Ordered Problem List Condition Effective Dates Status Health Status Inform ant Acquired syphilis(Confirmed) 1 Active AIN - Anal intraepithelial neoplasia(Confirmed) Active Allergic rhinitis(Confirmed) Active Constipation(Confirmed) Active HIV(Confirmed) Active Onychomycosis(Confirmed) Active Tinea pedis(Confirmed) Active 1dx 2015.latent.syphilis.RxBenzathiine PCNx3 Vital Signs Most recent to oldest [Reference Range]: 1 Height 182 cm (03/19/22 8:52 AM) Weight 80.4 kg (03/19/22 8:52 AM) Pulse Rate [55-90 bpm] 96 bpm *H* (03/19/22 8:52 AM) Body Mass Index [18.5-24.99] 24.27 (03/19/22 8:52 AM) Blood Pressure [90-138/55-84 mm Hg] 131/ 86mm Hg (03/19/22 8:52 AM) Respiratory Rate [16-30 br/min] 16 br/mi n (03/19/22 8:52 AM) Temperature [96.8-100.4 DegF] 96.7 DegF *L* (03/19/22 8:52 AM) Social History Social History Type Response Smoking Status Never smoker; Tobacc o user in household: No entered on: 03/09/14 Sex
--- OUTSIDE RECORDS SUMMARY | 2023-03-28 16:41 | XMS_ITS | Continuity of Care Document ---
Author Name Unknown Organization [facility] Address [address] [place] [address] [address] [place] [address]- Care Team Providers Care Corn Breeder Name Role Phone Alin Howe MD Primary Care Physician Encounter [facility] Date(s): 11/14/19 - 03/03/20 [facility] [address] [place] [address]- [facility] Attending Physician: Peyton Nicolas NP Allergies, Adverse [...] GIVEN. Flucelvax quadrivalent 2Result Comment: [11/12/2017] [facility] # [id number] 3Admin Note: Afluria quadrivalent 4Admin Note: Afluria [...] day, 0 Refills, Maintenance, 01/27/19 8:50:53 EDT, [place] Start Date: 01/27/19 Status: Ordered Genvoya oral tablet 1 tablet, By Mouth, Daily, with food, # 90 tablet, 3 Refills, Maintenance, 02/05/20 16:11:00 EDT, Tablet, [facility], 1 tablet By Mouth Daily,x90 days,Instr:with food, 182, cm, 11/11/19 13:17:00 EST, Height Start Date: 02/05/20 Stop Date: 01/30/21 Status: Ordered ibuprofen 800 mg oral tablet 800 mg, 1, tablet, By Mouth, Daily, with food or milk, # 90 tablet, Refills 1, Tot. Refills 1, Maintenance, 02/05/20 16:11:00 EDT, Route to Pharmacy Electronically, [facility], 182,cm, 11/11/19 13:17:00 EST, Height Start Date: 02/05/20 Stop Date: 08/03/20 Status: Ordered ibuprofen 800 mg oral tablet 800 mg, 1, tablet, By Mouth, Daily, # 30 tablet, Refills 0, Tot. Refills 0, Maintenance, 12/19/18 11:24:00 EST, Route to Pharmacy Electronically, [id number], [facility]/pharmacy #0769 Start Date: 12/19/18 Status: Ordered miconazole = 50 mg, Daily, [...] HIV(Confirmed) Active Onychomycosis(Confirmed) Active Tinea pedis(Confirmed) Active 1d2015.latent.syphilis.RxBenzathiine PCNx3 Social History Social History Type Response Smoking Status Never smoker; Tobacc o user in household: No entered on: 03/09/14 Sex
--- OUTSIDE RECORDS SUMMARY | 2023-03-28 16:41 | XMS_ITS | Continuity of Care Document ---
Author Name Unknown Organization [facility] Address [address] [place] [address]- Care Team Providers Care Welfare Interviewer Name Role Phone Alin Howe MD Primary Care Physician [place] [facility] [place] Date[place]s): 04/25/21 - 05/25/21 [facility] [address] [place] [address]- Allergies, Adverse Reactions, Alerts Substance Reaction Severity [...] VIS GIVEN. Flucelvax quadrivalent 3Result Comment: [11/12/2017] [facility] # [id number] 4Admin Note: Afluria quadrivalent 5Admin Note: Afluria [...]
--- OUTSIDE RECORDS SUMMARY | 2023-03-28 16:41 | XMS_ITS | Continuity of Care Document ---
Author Name Unknown Organization [facility] Address [address] [place] [address] [address] [place] [address]- Care Team Providers Care Safety Admin Assistant Name Role Phone Alin Howe MD Primary Care Physician [facility] Date(s): 02/02/20 - 02/12/20 [facility] [address] [place] [address]- [facility] Attending Physician: Admtr, Nahum8 Admitting Physician: Admtr, Nahum8 Referring Physician: Admtr, Ar8 Allergies, Adverse Reactions, Alerts Substance Reaction Severity [...] VIS GIVEN. Flucelvax quadrivalent 2Result Comment: [11/12/2017] [facility] # [id number] 3Admin Note: Afluria quadrivalent 4Admin Note: Afluria [...] day, 0 Refills, Maintenance, 01/27/19 8:50:53 EDT, [place] Start Date: 01/27/19 Status: Ordered Genvoya oral tablet 1 tablet, By Mouth, Daily, with food, # 90 tablet, 3 Refills, Maintenance, 02/05/20 16:11:00 EDT, Tablet, [facility], 1 tablet By Mouth Daily,x90 days,Instr:with food, 182, cm, 11/11/19 13:17:00 EST, [place] Start Date: 02/05/20 Stop Date: 01/30/21 Status: Ordered ibuprofen 800 mg oral tablet 800 mg, 1, tablet, By Mouth, Daily, with food or milk, # 90 tablet, Refills 1, Tot. Refills 1, Maintenance, 02/05/20 16:11:00 EDT, Route to Pharmacy Electronically, [facility], 182,cm, 11/11/19 13:17:00 EST, Height Start Date: 02/05/20 Stop Date: 08/03/20 Status: Ordered ibuprofen 800 mg oral tablet 800 mg, 1, tablet, By Mouth, Daily, # 30 tablet, Refills 0, Tot. Refills 0, Maintenance, 12/19/18 11:24:00 EST, Route to Pharmacy Electronically, [id number], [facility]/pharmacy #[id number] Start Date: 12/19/18 Status: Ordered miconazole [...]
--- OUTSIDE RECORDS SUMMARY | 2023-03-28 16:41 | XMS_ITS | Continuity of Care Document ---
Author Name Unknown Organization [facility] Address [address] [place] [address] [address] [place] [address]- Care Team Providers Care Qa Software Tester Name Role Phone Alin Howe MD Primary Care Physician [phone] [place] [facility] Date(s): 11/11/19 - 11/18/[address] [place] [address]- [facility] Encounter Diagnosis AIN (anal intraepithelial neoplasia) anal canal(Discharge Diagnosis) - 11/11/19 Attending Physician: Peyton Nicolas NP Referring Physician: Alin Howe MD Allergies, Adverse [...] 2Result Comment: [11/12/2017] [facility] # [id number] 3Admin Note: Afluria quadrivalent 4Admin Note: Afluria [...] Compound Start Date: 01/01/14 Status: Ordered Afluria [id number] intramuscular suspension 0.5 mL, Intramuscular, Once, # 0.5 mL, 0 Refills, Soft Stop, 08/21/16 17:35:00 Start Date: 08/21/16 Status: Ordered Afluria 1571-4840 intramuscular suspension 0.5 mL, Intramuscular, Once, # 0.5 mL, 0 Refills, Soft Stop, 08/07/16 11:46:00 Start Date: 08/07/16 Status: Ordered Afluria Quadrivalent [id number] intramuscular suspension 0.5 mL, Intramuscular, Once, # [...] day, 0 Refills, Maintenance, 01/27/19 8:50:53 EDT, [place] Start Date: 01/27/19 Status: Ordered Genvoya oral [...] 12/19/18 11:24:00 EST, Route to Pharmacy Electronically, [id number], [facility] Start Date: 12/19/18 Stop Date: 12/14/19 Status: Ordered ibuprofen 800 mg oral tablet 800 mg, 1, tablet, By Mouth, Daily, # 30 tablet, Refills 0, Tot. Refills 0, Maintenance, 12/19/18 11:24:00 EST, Route to Pharmacy Electronically, [id number], [facility]/pharmacy #[id number] Start Date: 12/19/18 Status: Ordered influenza [...] Dates Health Status Clinical Service Informant AIN (anal intraepithelial neoplasia) anal canal Discharge Diagnosis 11/11/19 Vital Signs Most recent to oldest [Reference Range]: 1 Height 182 cm (11/11/19 9:14 AM) Weight 80.9 kg (11/11/19 9:14 AM) Body Mass Index [18.5-24.99] 24.42 (11/11/19 9:14 AM) Temperature [96.8-100.4 DegF] 98.4 DegF (11/11/19 9:14 AM) Weight Obtained Via Standing scale (11/11/19 9:14 AM) Social History Social History Type Response Smoking Status Never smoker; Tobacc o user in household: No entered on: 03/09/14 Sex
--- OUTSIDE RECORDS SUMMARY | 2023-03-28 16:41 | XMS_ITS | Continuity of Care Document ---
Author Name Unknown Organization [facility] Address [address] [place] [address]- Care Team Providers Care Plastic Sheeting Cutter Name Role Phone Alin Howe MD Primary Care Physician Encounter [facility] [place] Date(s): 02/11/23 - 03/13/23 [facility] [address] [place] [address] Allergies, Adverse Reactions, Alerts [...] influenza virus vaccine, inactivated 07/21/10 Give n [id number] bivalent booster vax 09/01/22 Recorded SARS-CoV-2 (COVID-19) [...] VIS GIVEN. Flucelvax quadrivalent 2Result Comment: [11/12/2017] [facility] # [id number] 3Admin Note: Afluria quadrivalent 4Admin Note: Afluria [...] 02/19/23 15:13:00 EDT, Route to Pharmacy Electronically, [facility]... Start Date: 02/19/23 Stop Date: 05/20/23 Status: Ordered Imodium A-D 2 mg oral tablet 2 mg, 1, tablet, By Mouth, 2 times a day, Titrate for effectiveness, # 180 tablet, Refills 4, Tot. Refills 4, Maintenance, 03/05/23 14:58:00 EDT, Route to Pharmacy Electronically, [facility]/pharmacy #[id number],182, cm, 02/26/23 10:16:00 EDT, Height Start Date: 03/05/23 Status: Ordered Imodium A-D 2 mg oral tablet 2 mg, 1, tablet, By Mouth, 2 times a day, Titrate for effectiveness, # 60 tablet, Refills 3, Tot. Refills 3, Maintenance, 09/28/22 13:15:00 EST, Route to Pharmacy Electronically, 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.syphilis.RxBenzathiine PCNx3 Social History Social History Type Response Smoking Status Never (less than 100 in lifetime) entered on: 02/26/23 Sex Patient Care team information Care Team Personnel Name: Alin Howe MD Position: [facility] Physician (General Medicine) Member Role: PCP Address: Address: [address] [facility] [address] [place] [address]- Name: Parent Luz BRICEÑO Position: [facility] SN Deputy Jailer Member Role: Primary Care Nurse Name: Dread Blake MD Position: [facility] Infectious Disease MD Member Role: Lifetime Consulting Physician Address: Address: [address] [place] [address] [place] [address]- Care Team Related Persons Name: POOL HARDY Address: home [address] [place] [address]
--- OUTSIDE RECORDS SUMMARY | 2023-03-28 16:41 | XMS_ITS | Continuity of Care Document ---
Author Name Unknown Organization [facility] Address [address] [place] [address] [address] [place] [address]- Care Team Providers Care Hand Buffing Wheel Former Name Role Phone Alin Howe MD Primary Care Physician Encounter [facility] Date(s): 11/30/22 - 12/30/[address] [place] [address]- Attending Physician: Admtr, Nahum8 Admitting Physician: Admtr, Ar8 Referring Physician: Admtr, Ar8 Allergies, Adverse Reactions, [...] influenza virus vaccine, inactivated 07/21/10 Give n [id number] bivalent booster vax 09/01/22 Recorded SARS-CoV-2 (COVID-19) [...] 2Result Comment: [11/12/2017] [facility] # [id number] 3Admin Note: Afluria quadrivalent 4Admin Note: Afluria [...] 09/28/22 13:15:00 EST, Route to Pharmacy Electronically, [facility]/pharmacy #[id number], 182, cm, 07/20/22 8:42:00 EDT, Height Start Date: 09/28/22 Status: Ordered Imodium A-D 2 mg oral tablet 2 mg, 1, tablet, By Mouth, 2 times a day, Titrate for effectiveness, # 180 tablet, Refills 3, Tot. Refills 3, Maintenance, 10/16/22 14:16:00 EST, Route to Pharmacy Electronically, [facility], 182, cm, 07/20/22 8:42:00 EDT, Height [...] in household: No entered on: 03/09/14 Sex Note * Clementina Grullon: PERFORM, SIGN, VERIFY Event Display: Patient Education/Instruction Authored Date: [id number] Patient Care team information Care Team Personnel Name: Ailn Howe MD Position: [facility] Physician (General Medicine) Member Role: PCP Address: Address: [address] [place] [address] [place] [address]- [place] Name: Parent Luz BRICEÑO Position: [facility] SN Service Architect Member Role: Primary Care Nurse Name: Dread Blake MD Position: [facility] Infectious Disease MD Member Role: Lifetime Consulting Physician Address: Address: [address] [place] [address] [place] [address]- Care Team Related Persons Name: POOL HARDY Address: home [address] [place] [address]
--- OUTSIDE RECORDS SUMMARY | 2023-03-28 16:41 | XMS_ITS | Continuity of Care Document ---
Author Name Unknown Organization [facility] Address [address] [place] [address]- Care Team Providers Care Care Manager Cna Name Role Phone Alin Howe MD Primary Care Physician [phone] [place] [facility] [place](s): 04/18/21 - 05/18/21 [facility] [address] [place] [address]- Allergies, Adverse Reactions, Alerts Substance Reaction Severity [...] VIS GIVEN. Flucelvax quadrivalent 3Result Comment: [11/12/2017] [facility] # [id number] 4Admin Note: Afluria quadrivalent 5Admin Note: Afluria [...]
--- OUTSIDE RECORDS SUMMARY | 2023-03-28 16:41 | XMS_ITS | Continuity of Care Document ---
Author Name Unknown Organization [facility] Address [address] [place] [address]- Care Team Providers Care Sampler Radioactive Waste Name Role Phone Alin Howe MD Primary Care Physician [phone] Encounter [facility] [place] Date(s): 10/24/19 - 10/24/[address] [address]- [facility] Attending Physician: Fidencio ALEXIS, Peyton Warren Allergies, Adverse Reactions, Alerts Substance Reaction Severity [...] VIS GIVEN. Flucelvax quadrivalent 2Result Comment: [11/12/2017] [facility] # [id number] 3Admin Note: Afluria quadrivalent 4Admin Note: Afluria [...] day, 0 Refills, Maintenance, 01/27/19 8:50:53 EDT, [place] Start Date: 01/27/19 Status: Ordered Genvoya oral [...] 12/19/18 11:24:00 EST, Route to Pharmacy Electronically, [id number], [facility]) Start Date: 12/19/18 Stop Date: 12/14/19 Status: Ordered ibuprofen 800 mg oral tablet 800 mg, 1, tablet, By Mouth, Daily, # 30 tablet, Refills 0, Tot. Refills 0, Maintenance, 12/19/18 11:24:00 EST, Route to Pharmacy Electronically, [id number], [facility]/pharmacy #[id number] Start Date: 12/19/18 Status: Ordered influenza [...] Intramuscular Once Start Date: 08/17/14 Status: Ordered traMADol 50 mg oral tablet 1 tablet = 50 mg, By Mouth, Daily, PRN as needed for pain, # 30 tablet, 0 Refills, Maintenance, 05/24/17 15:50:53, Tablet Start Date: 05/24/17 Stop Date: 06/23/17 Status: Ordered ZyrTEC 10 mg oral tablet [...]
--- OUTSIDE RECORDS SUMMARY | 2023-03-28 16:41 | XMS_ITS | Continuity of Care Document ---
Author Name Unknown Organization [facility] Address [address] [place] [address]- Care Team Providers Care Underwater Roboticist Name Role Phone Alin Howe MD Primary Care Physician En[place] [facility] Date(s): 10/10/21 - 11/09/21 [facility] [address] [place] [address]- Attending Physician: Mara Fairchild Admitting Physician: Mara [...] VIS GIVEN. Flucelvax quadrivalent 4Result Comment: [11/12/2017] [facility] # [id number] 5Admin Note: Afluria quadrivalent 6Admin Note: Afluria [...] Date: 10/31/21 Stop Date: 04/29/22 Status: Ordered Genvoya oral tablet 1 tablet, By Mouth, Daily, for 90 days, with food, # 90 tablet, 3 Refills, Hard Stop 11/23/21 13:38:00 EST, 11/28/20 13:38:00 EST, Tablet, [facility], 182, cm, 08/29/20 8:56:00 EST, Height Start [...]
--- OUTSIDE RECORDS SUMMARY | 2023-03-28 16:41 | XMS_ITS | Continuity of Care Document ---
Author Name Unknown Organization [facility] Address [address] [place] [address]- Care Team Providers Care Transformation Coach Name Role Phone Alin Howe MD Primary Care Physician [id number] Date(s[facility] 09/30/20 - 12/15/20 [facility] [address] [place] [address] Attending Physician: Dread Blake MD Admitting Physician: Dread Blake MD Referring Physician: Alin Howe MD Allergies, Adverse [...] quadrivalent 2Result Comment: [11/12/2017] [facility] # [id number] 3Admin Note: Afluria quadrivalent 4Admin Note: Afluria [...] 10/05/20 12:20:00 EST, Route to Pharmacy Electronically, [facility], 182, cm, 08/29/20 8:56:... [...]
--- OUTSIDE RECORDS SUMMARY | 2023-03-28 16:41 | XMS_ITS | Continuity of Care Document ---
Author Name Unknown Organization [facility] Address [address] [place] [address] [address] [place] [address]- Care Team Providers Care Materials Associate Name Role Phone Alin Howe MD Primary Care Physician Encounter [facility] Date(s): 04/27/20 - 05/27/[address] [place] [address]- [facility] Attending Physician: Mara Fairchild Admitting Physician: AdmMara [...] VIS GIVEN. Flucelvax quadrivalent 2Result Comment: [11/12/2017] [facility] # [id number] 3Admin Note: Afluria quadrivalent 4Admin Note: Afluria [...] 3 Refills, Maintenance, 02/05/20 16:11:00 EDT, Tablet, [facility], 1 tablet By Mouth Daily,x90 days,Instr:with food, 182, cm, 11/11/19 13:17:00 EST, [place] Start Date: 02/05/20 Stop Date: 01/30/21 Status: Ordered ibuprofen 800 mg oral tablet 800 mg, 1, tablet, By Mouth, Daily, with food or milk, # 90 tablet, Refills 1, Tot. Refills 1, Maintenance, 02/05/20 16:11:00 EDT, Route to Pharmacy Electronically, [facility], 182,cm, 11/11/19 13:17:00 EST, [place] Start Date: 02/05/20 Stop Date: 08/03/20 Status: Ordered ibuprofen 800 mg oral tablet 800 mg, 1, tablet, By Mouth, Daily, # 30 tablet, Refills 0, Tot. Refills 0, Maintenance, 12/19/18 11:24:00 EST, Route to Pharmacy Electronically, [id number], [facility]/pharmacy #[id number] Start Date: 12/19/18 Status: Ordered Imodium A-D 2 mg oral tablet 2 mg, 1, tablet, By Mouth, 2 times a day, Titrate for effectiveness, # 60 tablet, Refills 5, Tot. Refills 5, Maintenance, 05/13/20 8:58:00 EDT, Route to Pharmacy Electronically, [facility], 182, cm, 11/11/19 13:17:00 [...]
--- OUTSIDE RECORDS SUMMARY | 2023-03-28 16:41 | XMS_ITS | Continuity of Care Document ---
Author Name Unknown Organization [facility] Address [address] [place] [address]- Care Team Providers Care Armature Straightener Name Role Phone Alin Howe MD Primary Care Physician [phone] Encounter [facility] [place] Date(s): 05/24/20 - 06/23/20 [facility] [address] [place] [address]- [facility] Attending Physician: Mara Fairchild Admitting Physician: AdmtrMara Referring Physician: Admtr, ArStephan Allergies, Adverse Reactions, Alerts Substance Reaction Severity [...] VIS GIVEN. Flucelvax quadrivalent 2Result Comment: [11/12/2017] [facility] # [id number] 3Admin Note: Afluria quadrivalent 4Admin Note: Afluria [...] 3 Refills, Maintenance, 02/05/20 16:11:00 EDT, Tablet, [facility], 1 tablet By Mouth Daily,x90 days,Instr:with food, 182, cm, 11/11/19 13:17:00 EST, [place] Start Date: 02/05/20 Stop Date: 01/30/21 Status: Ordered ibuprofen 800 mg oral tablet 800 mg, 1, tablet, By Mouth, Daily, with food or milk, # 90 tablet, Refills 1, Tot. Refills 1, Maintenance, 02/05/20 16:11:00 EDT, Route to Pharmacy Electronically, [facility], 182,cm, 11/11/19 13:17:00 EST, [place] Start Date: 02/05/20 Stop Date: 08/03/20 Status: Ordered ibuprofen 800 mg oral tablet 800 mg, 1, tablet, By Mouth, Daily, # 30 tablet, Refills 0, Tot. Refills 0, Maintenance, 12/19/18 11:24:00 EST, Route to Pharmacy Electronically, [id number], [facility]/pharmacy #[id number] Start Date: 12/19/18 Status: Ordered Imodium A-D 2 mg oral tablet 2 mg, 1, tablet, By Mouth, 2 times a day, Titrate for effectiveness, # 60 tablet, Refills 5, Tot. Refills 5, Maintenance, 05/13/20 8:58:00 EDT, Route to Pharmacy Electronically, [facility], 182, cm, 11/11/19 13:17:00 EST, Height [...]
--- OUTSIDE RECORDS SUMMARY | 2023-03-28 16:41 | XMS_ITS | Continuity of Care Document ---
Author Name Unknown Organization [facility] Address [address] [place] [address]- Care Team Providers Care Incinerator Attendant Name Role Phone Alin Howe MD Primary Care Physician [phone] Encounter [facility] Date(s): 01/10/23 - 02/09/23 [facility] [address] [place] [address]- Allergies, Adverse Reactions, Alerts Substance Reaction Severity [...] influenza virus vaccine, inactivated 07/21/10 Give n [id number] bivalent booster vax 09/01/22 Recorded SARS-CoV-2 (COVID-19) mRNA-1273 vaccine 04/01/22 R ecorded zoster vaccine, inactivated 10/10/21 Given zoster vaccine, inactivated 6 05/16/21 [...] quadrivalent 2Result Comment: [11/12/2017] [facility] # [id number] 3Admin Note: Afluria quadrivalent 4Admin Note: Afluria [...] 09/28/22 13:15:00 EST, Route to Pharmacy Electronically, [facility]/pharmacy #[id number], 182, cm, 07/20/22 8:42:00 EDT, [place] Start Date: 09/28/22 Status: Ordered Imodium A-D 2 mg oral tablet 2 mg, 1, tablet, By Mouth, 2 times a day, Titrate for effectiveness, # 180 tablet, Refills 4, Tot. Refills 4, Maintenance, 01/03/23 8:44:00 EST, Route to Pharmacy Electronically, [facility]/pharmacy #[id number], 182, cm, 11/30/22 9:14:00 EST, [place] Start Date: 01/03/23 Status: Ordered miconazole = 50 mg, Daily, 0 Refills, Maintenance Start Date: 01/23/10 Status: Ordered terbinafine 250 mg oral tablet 1 tablet = 250 mg, By Mouth, Daily, for 30 days, # 30 tablet, 3 Refills, Acute 06/05/23 10:22:00 EDT, 02/05/23 10:22:00 EDT, Tablet, [facility]/pharmacy #[id number], Partial fill upon patient [...] Care team information Care Team Personnel Name: [place] MD, Alin D Position: [facility] Physician (General Medicine) Member Role: PCP Address: Address: [address] [place] [address]- Name: Parent Luz BRICEÑO Position: [facility] SN Computer Trainer Member Role: Primary Care Nurse Name: Dread Blake MD Position: [facility] Infectious Disease MD Member Role: Lifetime Consulting Physician Address: Address: [address] [place] [address] [place] [address]- Care Team Related Persons Name: POOL HARDY Address: home [address] [place] [address]
--- OUTSIDE RECORDS SUMMARY | 2023-03-28 16:41 | XMS_ITS | Continuity of Care Document ---
Author Name Unknown Organization [facility] Address [address] [place] [address]- Care Team Providers Care Manager Information Name Role Phone Alin Howe MD Primary Care Physician Encounter [facility] Date(s): 09/25/22 - 10/25/22 [facility] [address] [place] [address] Attending Physician: Mara Fairchild Admitting Physician: Mara [...] influenza virus vaccine, inactivated 07/21/10 Give n [id number] bivalent booster vax 09/01/22 Recorded SARS-CoV-2 (COVID-19) [...] VIS GIVEN. Flucelvax quadrivalent 2Result Comment: [11/12/2017] [facility] # [id number] 3Admin Note: Afluria quadrivalent 4Admin Note: Afluria [...] Refills 0, Tot. Refills 0, Physician Stop 11/26/22 13:54:00 EST, 08/28/22 13:54:00 EDT, Route to Pharmacy Electronically, [facility]... Start Date: 08/28/22 Stop Date: 11/26/22 Status: Ordered Imodium A-D 2 mg oral tablet 2 mg, 1, tablet, By Mouth, 2 times a day, Titrate for effectiveness, # 60 tablet, Refills 3, Tot. Refills 3, Maintenance, 09/28/22 13:15:00 EST, Route to Pharmacy Electronically, [facility]/pharmacy #[id number], 182, cm, 07/20/22 8:42:00 EDT, [place] Start Date: 09/28/22 Status: Ordered Imodium A-D 2 mg oral tablet 2 mg, 1, tablet, By Mouth, 2 times a day, Titrate for effectiveness, # 180 tablet, Refills 3, Tot. Refills 3, Maintenance, 10/16/22 14:16:00 EST, Route to Pharmacy Electronically, [facility], 182, cm, 07/20/22 8:42:00 EDT, Height [...] No entered on: 03/09/14 Sex Note * Event Display: MRI Spine, Non- BH Authored Date: * Event Display: Laboratory Result Scanned Authored Date: * Event Display: Laboratory Result Scanned Authored Date: * Event Display: Laboratory Result Scanned Authored Date: Patient Care team information Care Team Personnel Name: Alin Howe MD Position: [facility] Physician (General Medicine) Member Role: PCP Address: Address: [address] [place] [address] Name: Parent RN, Luz S Position: [facility] SN Vice President & General Manager [employer] Member Role: Primary Care Nurse Name: Dread Blake MD Position: [facility] Infectious Disease MD Member Role: Lifetime Consulting Physician Address: Address: [address] [place] [address] [place] [address]- Care Team Related Persons Name: POOL HARDY Address: home [address] [place] [address]
--- OUTSIDE RECORDS SUMMARY | 2023-03-28 16:41 | XMS_ITS | Continuity of Care Document ---
Author Name Unknown Organization [facility] Address [address] [place] [address] [address] [place] [address]- Care Team Providers Care Geospatial Applications Developer Name Role Phone Alin Howe MD Primary Care Physician Encounter [facility] Date(s): 01/02/23 - 02/01/23 [facility] [address] [place], [place] [address] Allergies, Adverse Reactions, Alerts Substance Reaction Severity [...] influenza virus vaccine, inactivated 07/21/10 Give n [id number] bivalent booster vax 09/01/22 Recorded SARS-CoV-2 (COVID-19) [...] VIS GIVEN. Flucelvax quadrivalent 2Result Comment: [11/12/2017] [facility] # [id number] 3Admin Note: Afluria quadrivalent 4Admin Note: Afluria [...] 09/28/22 13:15:00 EST, Route to Pharmacy Electronically, [facility]/pharmacy #[id number], 182, cm, 07/20/22 8:42:00 EDT, Height Start Date: 09/28/22 Status: Ordered Imodium A-D 2 mg oral tablet 2 mg, 1, tablet, By Mouth, 2 times a day, Titrate for effectiveness, # 180 tablet, Refills 4, Tot. Refills 4, Maintenance, 01/03/23 8:44:00 EST, Route to Pharmacy Electronically, [facility]/pharmacy #[id number], 182, cm, 11/30/22 9:14:00 EST, [...] Team Personnel Name: Alin Howe MD Position: [facility] Physician (General Medicine) Member Role: PCP Address: Address: [address] [place] [address]- Name: Parent Luz BRICEÑO Position: [facility] SN Maxillofacial Pathology Member Role: Primary Care Nurse Name: Dread Blake MD Position: [facility] Infectious Disease MD Member Role: Lifetime Consulting Physician Address: Address: [address] [place] [address] [place] [address]- Care Team Related Persons Name: POOL HARDY Address: home [address] [place] [address]
--- OUTSIDE RECORDS SUMMARY | 2023-03-28 16:41 | XMS_ITS | Continuity of Care Document ---
Author Name Unknown Organization [facility] Address [address] [place] [address]- Care Team Providers Care Spool Winder Name Role Phone lAin Howe MD Primary Care Physician [place] [facility] [place] - 06/04/21 [facility] [address] [place] [id number] Allergies, Adverse Reactions, Alerts [...] VIS GIVEN. Flucelvax quadrivalent 3Result Comment: [11/12/2017] [facility] # [id number] 4Admin Note: Afluria quadrivalent 5Admin Note: Afluria [...]
--- OUTSIDE RECORDS SUMMARY | 2023-03-28 16:41 | XMS_ITS | Continuity of Care Document ---
Author Name Unknown Organization [facility] Infect[facility] Disease Address [address] [place] [address]- Care Team Providers Care Manager Ui Name Role Phone Alin Howe MD Primary Care Physician Encounter [facility] [place] Date(s): 09/14/22 - 10/14/22 [facility] [address] [place] [id number] Allergies, Adverse Reactions, Alerts Substance Reaction [...] influenza virus vaccine, inactivated 07/21/10 Give n [id number] bivalent booster vax 09/01/22 Recorded SARS-CoV-2 (COVID-19) [...] Comment: [11/12/2017] [facility] # [id number] 3Admin Note: Afluria quadrivalent 4Admin Note: Afluria [...] 08/28/22 13:54:00 EDT, [facility] to [facility]acy [facility], [facility] Start Date: 08/28/22 Stop Date: 11/26/22 Status: Ordered Imodium A-D 2 mg oral tablet 2 mg, 1, tablet, By Mouth, 2 times a day, Titrate for effectiveness, # 60 tablet, Refills 3, Tot. Refills 3, Maintenance, 09/28/22 13:15:00 EST, Route to Pharmacy Electronically, [facility]/pharmacy #[id number], 182, cm, 07/20/22 8:42:00 EDT, Height Start Date: 09/28/22 Status: Ordered miconazole = 50 mg, Daily, [...] Team Personnel Name: Alin Howe MD Position: [facility] Physician (General Medicine) Member Role: PCP Address: Address: [address] [place] [address]- [place] Name: Parent Luz BRICEÑO Position: [facility] SN High Value Associate Member Role: Primary Care Nurse Name: Dread Blake MD Position: [facility] Infectious Disease MD Member Role: Lifetime Consulting Physician Address: Address: [address] [place] [address] [place] [address]- [place] Care Team Related Persons Name: POOL HARDY Address: home [address] [place] [address]
--- OUTSIDE RECORDS SUMMARY | 2023-03-28 16:41 | XMS_ITS | Continuity of Care Document ---
Author Name Unknown Organization [facility] Infectious Disease Address [address] [place] [address]- Care Team Providers Care Cargo Tank Mechanic Name Role Phone Alin Howe MD Primary Care Physician Encounter [facility] [place] Date(s): 05/18/22 - 06/17/22 [facility] [address] [place] [id number] Allergies, Adverse Reactions, Alerts Substance Reaction [...] GIVEN. Flucelvax quadrivalent 4Result Comment: [11/12/2017] [facility] # [id number] 5Admin Note: Afluria quadrivalent 6Admin Note: Afluria [...] Replace Required Details, Route to Pharmacy Electronically, [id number], 182, cm, 03/27/22 16:05:00 EDT, Height Start [...]
--- OUTSIDE RECORDS SUMMARY | 2023-03-28 16:41 | XMS_ITS | Continuity of Care Document ---
Author Name Unknown Organization [facility] Infectious Disease Address [address] [place] [address]- Care Team Providers Care Harvesting Manager Name Role Phone Alin Howe MD Primary Care Physician Encounter [facility] [place] Date(s): 04/03/22 - 05/03/22 [facility] [address] [place] [id number] Allergies, Adverse Reactions, [...] VIS GIVEN. Flucelvax quadrivalent 4Result Comment: [11/12/2017] [facility] # [id number] 5Admin Note: Afluria quadrivalent 6Admin Note: Afluria [...] 04/13/22 14:22:00 EDT, Route to Pharmacy Electronically, [facility]/pharmacy #[id number], Partial fi... Start Date: 04/13/22 Stop Date: [...]
--- OUTSIDE RECORDS SUMMARY | 2023-03-28 16:41 | XMS_ITS | Continuity of Care Document ---
Author Name Unknown Organization [facility] Infectious Disease Address [address] [place] [address]- Care Team Providers Care Health Assessment And Treatment Teacher Name Role Phone Alin Howe MD Primary Care Physician [phone] [place] [facility] [place] 08/27[place]22 - 09/26/22 [facility] [address] [place] [address]- Allergies, Adverse Reactions, Alerts Substance Reaction Severity [...] influenza virus vaccine, inactivated 07/21/10 Give n [id number] bivalent booster vax 09/01/22 Recorded SARS-CoV-2 (COVID-19) [...] VIS GIVEN. Flucelvax quadrivalent 2Result Comment: [11/12/2017] [facility] # [id number] 3Admin Note: Afluria quadrivalent 4Admin Note: Afluria [...] 08/28/22 13:54:00 EDT, Route to Pharmacy Electronically, [facility]... Start Date: 08/28/22 Stop Date: 11/26/22 Status: Ordered miconazole = 50 mg, Daily, [...] Team Personnel Name: Alin Howe MD Position: [facility] Physician (General Medicine) Member Role: PCP Address: Address: [address] [place] [id number]- Name: Parent Luz BRICEÑO Position: [facility] SN Classification Clerk Member Role: Primary Care Nurse Name: Dread Blake MD Position: [facility] Infectious Disease MD Member Role: Lifetime Consulting Physician Address: Address: [address] [place] [address] [place] [address]- Care Team Related Persons Name: POOL HARDY Address: home [address] [place] [address]
--- OUTSIDE RECORDS SUMMARY | 2023-03-28 16:41 | XMS_ITS | Continuity of Care Document ---
Author Name Unknown Organization [facility] Infectious Disease Address [address] [place] [address]- Care Team Providers Care Sports Internship Name Role Phone Alin Howe MD Primary Care Physician Encounter [facility] [place] Date(s): 10/31/21 - 11/30/21 [facility] Disease [address] [place] [address]- Allergies, Adverse Reactions, Alerts Substance Reaction Severity [...] 5y-11y) vax 7 03/10/21 Recorded SARS-CoV-2 mRNA (toantnameran 5y-11y) vax 8 02/10/21 Recorded tetanus/diphtheria/pertussis, acel(Tdap) [...] VIS GIVEN. Flucelvax quadrivalent 4Result Comment: [11/12/2017] [facility] # [id number] 5Admin Note: Afluria quadrivalent 6Admin Note: Afluria [...]
--- OUTSIDE RECORDS SUMMARY | 2023-03-28 16:41 | XMS_ITS | Continuity of Care Document ---
Author Name Unknown Organization [facility] Infectious Disease Address [address] [place] [address]- Care Team Providers Care Pack Mule Worker Name Role Phone Alin Howe MD Primary Care Physician [place] [facility] [place](s): 02/19/23 - 03/21/23 [facility] Infectious Disease [address] [place] [id number] Allergies, Adverse Reactions, Alerts Substance [...] influenza virus vaccine, inactivated 07/21/10 Give n [id number] bivalent booster vax 09/01/22 Recorded SARS-CoV-2 (COVID-19) [...] [facility] # [id number] 3Admin Note: Afluria quadrivalent 4Admin Note: Afluria [...] food, # 30 tablet, 11 Refills, Maintenance, 03/21/23 9:00:00 EDT, Tablet, [facility], 1 tablet By Mouth Daily,x30 days,Instr:with food, 182, cm, 02/26/23 10:16:00 EDT, Height Start Date: 03/21/23 Stop Date: 03/15/24 Status: Ordered ibuprofen 800 mg oral tablet 800 mg, 1, tablet, By Mouth, 3 times a day, for 90 days, not to exceed 3200 mg/day with food or milk, # 270 tablet, Refills 0, Tot. Refills 0, Physician Stop 05/20/23 15:13:00 EDT, 02/19/23 15:13:00 EDT, Route to Pharmacy Electronically, [facility]... Start Date: 02/19/23 Stop Date: 05/20/23 Status: Ordered Imodium A-D 2 mg oral tablet 2 mg, 1, tablet, By Mouth, 2 times a day, Titrate for effectiveness, # 180 tablet, Refills 4, Tot. Refills 4, Maintenance, 03/05/23 14:58:00 EDT, Route to Pharmacy Electronically, [facility]/pharmacy #[id number],182, cm, 02/26/23 10:16:00 EDT, Height Start Date: 03/05/23 Status: Ordered Imodium A-D 2 mg oral tablet 2 mg, 1, tablet, By Mouth, 2 times a day, Titrate for effectiveness, # 60 tablet, Refills 3, Tot. Refills 3, Maintenance, 09/28/22 13:15:00 EST, Route to Pharmacy Electronically, [facility]/pharmacy #[id number], 182, cm, 07/20/22 8:42:00 EDT, [...] (less than 100 in lifetime) entered on: 5/2/23 Sex Patient Care team information Care Team Personnel Name: Alin Howe MD Position: [facility] Physician (General Medicine) Member Role: PCP Address: Address: [address] [place] [address]- Name: Parent RNLuz Position: [facility] SN Embedded Software Engineer Member Role: Primary Care Nurse Name: Dread Blake MD Position: [facility] Infectious Disease MD Member Role: Lifetime Consulting Physician Address: Address: [address] [place] [address] [place] [address]- Care Team Related Persons Name: POOL HARDY Address: home [address] [place] [address]
--- OUTSIDE RECORDS SUMMARY | 2023-03-28 16:41 | XMS_ITS | Continuity of Care Document ---
Author Name Unknown Organization [facility] Address [address] [place] [address] [address] [place] [address]- Care Team Providers Care Senior Brand Manager Name Role Phone Alin Howe MD Primary Care Physician Encounter [facility] [place] Date(s): 07/20/22 - 07/27/[address] [place] [address]- Encounter Diagnosis AIN - Anal intraepithelial neoplasia(Discharge Diagnosis) - 07/20/22 Attending Physician: Lana ALEXIS, Suzi Hidalgo Referring [...] quadrivalent 4Result Comment: [11/12/2017] [facility] # [id number] 5Admin Note: Afluria quadrivalent 6Admin Note: Afluria [...] Replace Required Details, Route to Pharmacy Electronically, [id number], 182, cm, 03/27/22 16:05:00 EDT, Height Start [...] AIN - Anal intraepithelial neoplasia Discharge Diagnosis 07/20/22 Vital Signs Most recent to oldest [Reference Range]: 1 Height 182 cm (07/20/22 8:42 AM) Weight 86 kg (07/20/22 8:42 AM) Pulse Rate [55-90 bpm] 79 bpm (07/20/22 8:42 AM) Body Mass Index [18.5-24.99 kg/m2] 25.96 kg/m2 *H* (07/20/22 8:42 AM) Blood Pressure [90-138/55-84 mm Hg] 138/ 79mm Hg (07/20/22 8:42 AM) Temperature [96.8-100.4 DegF] 98.3 DegF (07/20/22 8:42 AM) Blood pressure sites Arm, right (07/20/22 8:42 AM) Temperature Route Temporal (07/20/22 8:42 AM) Weight Obtained Via Standing scale (07/20/22 8:42 AM) Social History Social History Type Response Smoking Status Never smoker; Tobacc o user in household: No entered on: 03/09/14 Sex Patient Care team information Personnel Name: Alin Howe MD Address: Address: [address] [place] [address] Stewart Howe, [place], [place] [address]
--- OUTSIDE RECORDS SUMMARY | 2023-03-28 16:41 | XMS_ITS | Continuity of Care Document ---
Author Name Unknown Organization [facility] Infectious Disease Address [address] [place] [address]- Care Team Providers Care Silver Plater Name Role Phone Alin Howe MD Primary Care Physician [place] [facility] [place] Date(s): 01/30/22 - 03/01/22 [facility] Disease [address] [place] [id number] Allergies, Adverse Reactions, Alerts Substance [...] VIS GIVEN. Flucelvax quadrivalent 4Result Comment: [11/12/2017] [facility] # [id number] 5Admin Note: Afluria quadrivalent 6Admin Note: Afluria [...]
--- OUTSIDE RECORDS SUMMARY | 2023-03-28 16:41 | XMS_ITS | Continuity of Care Document ---
Author Name Unknown Organization [facility] Address Unknown Care Team Providers Care Senior Research Associate Name Role Phone Alin Howe MD Primary Care Physician En[place] [facility] [place] Date(s): 05/10/22 - 06/09/22 [facility] Allergies, Adverse Reactions, Alerts Substance Reaction Severity [...] VIS GIVEN. Flucelvax quadrivalent 4Result Comment: [11/12/2017] [facility] # [id number] 5Admin Note: Afluria quadrivalent 6Admin Note: Afluria [...] Replace Required Details, Route to Pharmacy Electronically, [id number], 182, cm, 03/27/22 16:05:00 EDT, Height Start [...]
--- OUTSIDE RECORDS SUMMARY | 2023-03-28 16:41 | XMS_ITS | Continuity of Care Document ---
Author Name Unknown Organization [facility] Infectious Disease Address [address] [place] [address]- Care Team Providers Care Icing Machine Operator Name Role Phone Alin Howe MD Primary Care Physician Encounter [facility] [place] Date(s): 04/08/20 - 05/27/20 [facility] [address] [place] [address] [facility] Attending Physician: Dread Blake MD Admitting Physician: Dread Blake MD Referring Physician: Dread Blake MD Allergies, Adverse [...] VIS GIVEN. Flucelvax quadrivalent 2Result Comment: [11/12/2017] [facility] # [id number] 3Admin Note: Afluria quadrivalent 4Admin Note: Afluria [...] 3 Refills, Maintenance, 02/05/20 16:11:00 EDT, Tablet, [facility], 1 tablet By Mouth Daily,x90 days,Instr:with food, 182, cm, 11/11/19 13:17:00 EST, Height Start Date: 02/05/20 Stop Date: 01/30/21 Status: Ordered ibuprofen 800 mg oral tablet 800 mg, 1, tablet, By Mouth, Daily, with food or milk, # 90 tablet, Refills 1, Tot. Refills 1, Maintenance, 02/05/20 16:11:00 EDT, Route to Pharmacy Electronically, [facility], 182,cm, 11/11/19 13:17:00 EST, Height Start Date: 02/05/20 Stop Date: 08/03/20 Status: Ordered ibuprofen 800 mg oral tablet 800 mg, 1, tablet, By Mouth, Daily, # 30 tablet, Refills 0, Tot. Refills 0, Maintenance, 12/19/18 11:24:00 EST, Route to Pharmacy Electronically, [id number], [facility]/pharmacy #[id number] Start Date: 12/19/18 Status: Ordered Imodium A-D 2 mg oral tablet 2 mg, 1, tablet, By Mouth, 2 times a day, Titrate for effectiveness, # 60 tablet, Refills 5, Tot. Refills 5, Maintenance, 05/13/20 8:58:00 EDT, Route to Pharmacy Electronically, [facility], 182, cm, 11/11/19 13:17:00 [...]
--- OUTSIDE RECORDS SUMMARY | 2023-03-28 16:42 | XMS_ITS | Continuity of Care Document ---
Author Name Unknown Organization [facility] Infectious Disease Address [address] [place] [address]- Care Team Providers Care Career Development Director Name Role Phone Alin Howe MD Primary Care Physician [phone] [place] [facility] [place](s): 05/16/21 - 06/15/21 [facility] Infect[facility] Disease [address] [place] [id number] Attending Physician: Mara Fairchild Admitting Physician: [...] quadrivalent 3Result Comment: [11/12/2017] [facility] # [id number] 4Admin Note: Afluria quadrivalent 5Admin Note: Afluria [...]
--- OUTSIDE RECORDS SUMMARY | 2023-03-28 16:42 | XMS_ITS | Continuity of Care Document ---
Author Name Unknown Organization [facility] Infectious Disease Address [address] [place] [address]- Care Team Providers Care Electrical Logging Operator Name Role Phone Alin Howe MD Primary Care Physician Encounter [facility] [place] Date(s): 03/30/22 - 04/29/22 [facility] Infect[facility] Disease [address] [place] [id number] Allergies, Adverse Reactions, Alerts Substance Reaction [...] VIS GIVEN. Flucelvax quadrivalent 4Result Comment: [11/12/2017] [facility] # [id number] 5Admin Note: Afluria quadrivalent 6Admin Note: Afluria [...] 04/13/22 14:22:00 EDT, Route to Pharmacy Electronically, [facility]/pharmacy #[id number], Partial fi... Start Date: 04/13/22 Stop Date: [...]
[2023-03-28 16:48] LABS: Procalcitonin 0.03 ng/mL
[2023-03-28] MEDS: Enoxaparin Sodium 40 MG/0.4 ML SYRINGE SUBCUT (18:07)
[2023-03-28] MEDS: 0.9 % Sodium Chloride Flush 3 ML SYRINGE IVFLUSH ×2 (18:07→20:39)
--- NOTE | 2023-03-28 18:37 | PM.CNNEP ---
History of Present Illness Reason for Consult Consult date: 03/28/23 Chief Complaint Chief complaint: pneumonia, hyponatremia History of Present Illness Narrative: ?52-year-old male with history of HIV who presents to the emergency department with several days of shortness of breath.? Patient reported sore throat, headache, nonproductive cough, chills and multiple days of non-bloody diarrhea.? He denies any recent sick contacts or recent travel. He has had decreased po intake. He also reports some back pain.? In the emergency department lab work was significant for hyponatremia with a sodium of 124.? Chest x-ray revealed patchy scattered airspace opacities suggestive of infectious etiology.? He was treated with IV ceftriaxone and azithromycin.? For hyponatremia he received 1 L of IV normal saline.? He received multiple doses of IV narcotics for control of back pain and the decision was made to admit him to the hospital for further management. Nephrology has been consulted to assist in his clinical care during his current hospital stay. Review of Systems Review of Systems Yes all other systems are reviewed and are negative PMFSH Past Medical History Medical History (Updated 03/28/23 @ 16:03 by Itz Roman MD) HIV (human immunodeficiency virus infection) Social History Social History (Updated 03/28/23 @ 15:42 by ERASMO Staton) Household Members: Significant Other Housing: House Do you presently have visiting nurse or other home services: No Alcohol intake: never Patient Tobacco Use Status: Never used Tobacco Use of substances other than those prescribed or required for medical reasons: No Have you been hit, kicked, punched, or otherwise hurt by someone within the past year? If so, by whom?: No Do you feel safe in your current relationship?: No Is there a partner from a previous relationship who is making you feel unsafe now?: No Are you made to feel afraid or neglected: No Advance Directives: No Advance Directives Information Provided: Yes Do you have thoughts of harming others: None Do you have a plan to hurt others: No Plan Recently lost weight without trying: No Meds Allergies Allergy/AdvReac Type Severity Reaction Status Date / Time Sulfa (Sulfonamide Allergy Unknown Verified 03/28/23 05:51 Antibiotics) Active Medications: Current Medications Acetaminophen (Acetaminophen 325 Mg Tablet) 650 mg PO Q6H PRN PRN Reason: Pain, Mild (Pain Scale 1-3) Docusate Sodium (Docusate Sodium 100 Mg Capsule) 100 mg PO DAILY PRN PRN Reason: Constipation Docusate Sodium (Docusate Sodium 100 Mg Capsule) 100 mg PO DAILY [facility] Enoxaparin Sodium (Enoxaparin Sodium 40 Mg/0.4 Ml Syringe) 40 mg SUBCUT Q24H [facility] Last Admin: 03/28/23 18:07 Dose: 40 mg Gabapentin (Gabapentin 100 Mg Capsule) 100 mg PO TID [facility] Ceftriaxone Sodium 1 gm/ (Sodium Chloride) 50 mls @ 100 mls/hr IV Q24H [facility] Azithromycin 500 mg/ Sodium (Chloride) 250 mls @ 125 mls/hr IV Q24H [facility] Lidocaine (Lidocaine 4 % Patch Adh..Patch) 2 patch TRANSDERMA DAILY PRN; Protocol PRN Reason: Back Pain Non-Formulary Medication (Gquafvl-Wie-Kgyde-Tenof Alafen [Genvoya]) 1 tab PO DAILY [facility] Ondansetron HCl (Ondansetron Hcl 4 Mg/2 Ml Vial) 4 mg IVPUSH Q8H PRN PRN Reason: Nausea and Vomiting Pharmacy Consult (Consult Rx Perform Med Rec) 1 each MISCELLANE ONCE PRN PRN Reason: Consult order Sodium Chloride (0.9 % Sodium Chloride Flush 3 Ml Syringe) 3 ml IVFLUSH QSHIFT [facility] Last Admin: 03/28/23 18:07 Dose: 3 ml Home Medications Medication Instructions Recorded Confirmed Last Taken Type docusate sodium 100 mg capsule 100 mg PO DAILY 03/28/23 03/28/23 Unknown History elviteg 150 mg-cob 150 mg-emtricit 1 tab PO DAILY 03/28/23 03/28/23 Unknown History 200 mg-tenofo alafenam 10 mg tablet (Genvoya) gabapentin 100 mg capsule 100 mg PO TID 03/28/23 03/28/23 Unknown History ibuprofen 800 mg tablet 800 mg PO Q8H 03/28/23 03/28/23 Unknown History lidocaine 4 % topical patch 2 patch topical DAILY PRN Back Pain 03/28/23 03/28/23 Unknown History loperamide 2 mg tablet 2 mg PO BID PRN Diarrhea 03/28/23 03/28/23 Unknown History Physical Exam Vital Signs: Last Vital Signs Temp 97.2 F 03/28/23 17:51 Pulse 112 H 03/28/23 17:51 Resp 16 03/28/23 17:51 BP 131/85 03/28/23 17:51 Pulse Ox 96 03/28/23 17:51 O2 Del Method Room Air 03/28/23 17:51 BMI result Body Mass Index 27.4 Const General: no acute distress HEENT Mouth: Normal oral and palatal mucosa present Eyes EOM: EOMs intact bilaterally Neck Neck: Yes supple Resp Auscultation: diminished lung sounds Cardio Rate: regular rate GI Palpation (GI): Soft to palpation Skin General skin exam: no rashes or lesions noted Neuro General: moves all extremities Results Lab Results 03/28/23 07:45 03/28/23 12:14 Lab results: Chemistry 03/28/23 03/28/23 07:45 12:14 Sodium 124 L 126 L Potassium 4.4 4.1 Carbon Dioxide 23 19 L BUN 17 H 15 Creatinine 0.75 0.71 Calcium 8.9 8.7 Hematology 03/28/23 07:45 WBC 7.7 Hgb 14.1 Plt Count 257 Urinalysis 03/28/23 07:49 Urine Color Yellow Urine Appearance Clear Urine pH 6.0 Ur Specific Filion 1.020 Urine Protein 30 (1+) H Urine Glucose (UA) Negative Urine Ketones 40 Urine Blood Negative Urine Nitrite Negative Ur Leukocyte Esterase Negative Urine RBC 0-2 Urine WBC 0-5 Ur Squamous Epith Cells 0-2 Hyaline Casts 0-2 Urine Studies 03/28/23 08:18 Urine Osmolality 695 Assessment and Plan (1) Acute hyponatremia: Status: Acute Plan Hyponatremia likely from volume contraction( Urine studies reviewed) Its possible that he had some excess ADH from pulmonary pathology IV fluid given. May need more IVF based on evolving data PO free water restricted now. No indication for hypertonic saline/Urea/Tolvaptan Continue rest of current supportive care for now. Needs to avoid rapid Na correction Shall closely follow him along with Internal Medicine colleagues Time Spent With Patient Time: Total time managing care of this patient today ____ minutes. Procedures Date of Service Date of Service: 03/28/23
[2023-03-28] MEDS: Gabapentin 100 MG CAPSULE PO (20:38)
[2023-03-28 21:42] LABS: Anion Gap 12 (12-20); Blood Urea Nitrogen 16 mg/dL (9-16); Calcium 8.3 mg/dL (8.4-10.2); Carbon Dioxide 22 mmol/L (22-29); Chloride 94 mmol/L (96-108); Estimated Glomerular Filt Rate > 60; Glucose Random 114 mg/dL (60-115); Potassium 4.2 mmol/L (3.3-5.1); Sodium 124 mmol/L (135-145)
[2023-03-28] MEDS: Acetaminophen 325 MG TABLET 650 MG PO (23:39)
--- NOTE | 2023-03-29 | ECG_ITS ---
Test Reason : chest pain Blood Pressure : / mmHG Vent. Rate : 110 BPM Atrial Rate : 110 BPM P-R Int : 148 ms QRS Dur : 108 ms QT Int : 366 ms P-R-T Axes : 049 071 041 degrees QTc Int : 495 ms Sinus tachycardia Possible Left atrial enlargement Cannot rule out Inferior infarct , age undetermined Anterior infarct , age undetermined Abnormal ECG No previous ECGs available Referred By: Gustavo Ibarra Electronically Signed By:JOSE COSTA MD
[2023-03-29 01:13] LABS: CDiff Gene PCR NEGATIVE (Negative)
[2023-03-29] MEDS: Morphine Sulfate 4 MG/ML CARTRIDGE IVPUSH (01:44)
[2023-03-29] MEDS: ondansetron HCL 4 MG/2 ML VIAL IVPUSH (01:51)
[2023-03-29 02:04] VITALS: BP 125/86; PULSE 113; RESP 16; TEMP 37; O2SAT 97
[2023-03-29 02:31] LABS: Troponin-I High Sensitivity 13.6 ng/L (<3.5-35.0)
--- NOTE | 2023-03-29 02:35 | PC.NURSE ---
0144 pt c/o sharp chest pain. notified ekg,troponin and morphine 4mg iv ordered.pt c/o 8/10 sharp pain down to 1/10 after morphine given.troponin 13.6.ekg sent to .
--- NOTE | 2023-03-29 07:00 | CA_ITS ---
Transthoracic Echocardiogram Patient (Last, First, Middle): Nico Groves, Gender: Male Date of : 1970 Age: 52 Procedure Date: 03/29/2023 Procedure Type: Transthoracic Echocardiogram Location: [facility] – [place] Height: 177.8 cm Weight: 86.18 kg BSA: 2.04 m2 Heart Rate: bpm BP: 130 / [address] Draftsperson: [email or web address] Referring MD: Geneva ZIMMERMAN Business Representative: Jose Alfredo Greer MD Symptoms: pleural effusions?CHF Study Quality: Adequate ECG Rhythm: Sinus Conclusions: - 1. Mildly dilated left ventricle with severely reduced LV ejection fraction of 15-20% 2. Moderately dilated left atrium 3. Moderate to severe mitral regurgitation secondary to LV pathology 4. Moderately elevated right ventricular systolic pressure with significant elevated right atrial pressures 5. Trivial pericardial effusion Findings Procedure Information Contrast agent, definity, is being given per protocol without apparent complications. Left Ventricle Mildly increased left ventricular cavity size. There is normal left ventricular wall thickness. The left ventricular systolic function is severely decreased. The visually estimated ejection fraction is between 15 20%. There is severe global hypokinesis. Diastolic function is indeterminate on the basis of available data. Right Ventricle Normal right ventricular cavity size. There is normal right ventricular systolic function. Atria The left atrium is moderately dilated. Interatrial shunt cannot be excluded. The right atrium is likely dilated. Aortic Valve Normal aortic valve structure and function. There is no aortic valve stenosis. There is no aortic valve regurgitation. Mitral Valve There is mild anterior and posterior mitral leaflet thickening. There is moderate to severe mitral valve regurgitation. There is no mitral valve stenosis. Pulmonic Valve The pulmonic valve is likely normal. There is trace pulmonic valve regurgitation. Tricuspid Valve Normal tricuspid valve structure. There is mild to moderate tricuspid valve regurgitation. Significantly elevated right atrial pressure. Moderate pulmonary hypertension is present. Great Vessels All visible segments of the aorta are normal in size. The pulmonary artery was not well visualized. Venous The inferior vena cava is moderately dilated and collapses less than 50% with inspiration. Pericardium/Pleural There is a trivial circumferential pericardial effusion. Measurements 2D Linear Measurements IVSd: 0.96 0.6-0.9/0.6-1.0 cm LVIDd: 5.83 3.9-5.3/4.2-5.9 cm LVIDd Index: 2.86 2.4-3.2/2.2-3.1 cm/m2 LVIDs: 4.88 2.0-3.6 cm LVPWd: 0.86 0.7-1.1 cm Ao Root: 3.00 2.1-3.5 cm LA Diam: 4.90 2.7-3.8/3.0-4.0 cm LAIDs Index: 2.40 1.5-2.3 cm/m2 LV Mass: 258.61 67-162/88-224 g LV Mass Index: 126.77 43-95/49-115 g/m2 LVOT Diam: 2.10 3.0+(-)1.3 cm 2D Systolic Function EF 4C: 23.00 >55% EF 2C: 4.35 >55% EF BiP: 15.10 >55% Mitral Valve MV Pk E: 1.04 MV Decel Time: 167.00 E'Lateral: 11.70 E'Medial: 6.64 E/E' Med: 15.70 E/E' Lat: 8.90 PHT: 49.00 MVA PHT: 4.49 Decel Alpine: 6.21 MR Vol - PW Dopp: 25.44 MR VTI: 1.06 MR ERO: 24.00 MR Alias Calvin: 0.36 MR RAD: 0.70 Aortic Valve AoV Pk Calvin: 0.99 AoV Mn Calvin: 0.69 AoV VTI: 0.14 AoV Pk Grad: 4.00 Aov Mn Grad: 2.00 NATASHA Cont.VTI: 1.80 LVOT LVOT Pk Calvin: 0.55 LVOT Mn Calvin: 0.35 LVOT VTI: 0.07 LVOT Pk Grad: 1.00 LVOT Mn Grad: 1.00 LVOT Diam: 2.10 LVOT Area: 3.46 Diastolic Function MV Pk E: 1.04 E'Medial: 6.64 E/E' Med: 15.70 E' Laterial: 11.70 E/E' Lat: 8.90 Right Ventricle TAPSE (mm): 22.00 TVS' Calvin: 12.00 Tricuspid Valve TR Pk Calvin: 3.07 TR Pk Grad: 38.00 RA Press: 15.00 RVSP: 53.00 Great Vessels Aorta Ao Root-2D: 3.00 2.0-3.7 cm Ao Asc: 3.30 2.1-3.4 cm Pulmonary Valve PV Pk Calvin: 0.75 Peak PV Grad: 2.00 Updated in Other Vendor System with Status of Final Jose Alfredo Greer MD electronically signed on 03/30/2023 8:20:54 AM with status of Final
[2023-03-29 07:12] LABS: Anion Gap 13 (12-20); Blood Urea Nitrogen 16 mg/dL (9-16); Calcium 8.4 mg/dL (8.4-10.2); Carbon Dioxide 20 mmol/L (22-29); Chloride 97 mmol/L (96-108); Estimated Glomerular Filt Rate > 60; Glucose Random 95 mg/dL (60-115); Potassium 4.4 mmol/L (3.3-5.1); Sodium 126 mmol/L (135-145)
[2023-03-29 07:23] VITALS: BP 130/88; PULSE 110; RESP 18; TEMP 36; O2SAT 97
[2023-03-29] MEDS: Gabapentin 100 MG CAPSULE PO ×3 (07:27→19:59)
[2023-03-29] MEDS: Docusate Sodium 100 MG CAPSULE PO (07:27)
[2023-03-29] MEDS: 0.9 % Sodium Chloride Flush 3 ML SYRINGE IVFLUSH ×2 (07:27→20:00)
[2023-03-29] MEDS: Lidocaine 4 % Patch ADH..PATCH 2 PATCH TRANSDERMA (08:22)
[2023-03-29 08:46] LABS: Adenovirus PCR Not Detected (Not Detect.); Bordetella parapertussis PCR Not Detected (Not Detect.); Bordetella pertussis PCR Not Detected (Not Detect.); Chlamydia pneumoniae PCR Not Detected (Not Detect.); Coronavirus 229E PCR Not Detected (Not Detect.); Coronavirus HKU1 PCR Not Detected (Not Detect.); Coronavirus NL63 PCR Not Detected (Not Detect.); Coronavirus OC43 PCR Not Detected (Not Detect.); Human metapneumovirus PCR Not Detected (Not Detect.); Influenza A PCR Not Detected (Not Detect.); Influenza B PCR Not Detected (Not Detect.); Mycoplasma pneumoniae PCR Not Detected (Not Detect.); Parainfluenza 1 PCR Not Detected (Not Detect.); Rhino/Enterovirus PCR Not Detected (Not Detect.); SARS-CoV-2 PCR Not Detected (Not Detect.)
[2023-03-29 08:47] LABS: Parainfluenza 2 PCR Not Detected (Not Detect.); Parainfluenza 3 PCR Not Detected (Not Detect.); Parainfluenza 4 PCR Not Detected (Not Detect.); RSV PCR Not Detected (Not Detect.)
[2023-03-29 10:20] LABS: Adenovirus F 40/41 Not Detected (Not Detect.); Astrovirus Not Detected (Not Detect.); Campylobacter Not Detected (Not Detect.); Cryptosporidium Not Detected (Not Detect.); Cyclospora cayetanensis Not Detected (Not Detect.); E. coli EAEC Not Detected (Not Detect.); E. coli EPEC Not Detected (Not Detect.); E. coli ETEC Not Detected (Not Detect.); E. coli STEC Not Detected (Not Detect.); Entamoeba histolytica Not Detected (Not Detect.); Giardia lamblia Not Detected (Not Detect.); Norovirus GI/GII Not Detected (Not Detect.); Plesiomonas shigelloides Not Detected (Not Detect.); Rotavirus A Not Detected (Not Detect.); Salmonella Not Detected (Not Detect.); Sapovirus Not Detected (Not Detect.); Shigella sp./EIEC Not Detected (Not Detect.); Vibrio Not Detected (Not Detect.); Vibrio Cholerae Not Detected (Not Detect.); Yersinia enterocolitica Not Detected (Not Detect.)
--- NOTE | 2023-03-29 10:32 | MHC.CM.PN ---
met with pt who is to be dcd tomorrow pt is independent has own ride dc plan home no servcwis
[2023-03-29] MEDS: cefTRIAXone sodium 1 GM in 0.9 % Sodium Chloride 50 ML IV (10:54)
[2023-03-29] MEDS: Ibuprofen 600 MG TABLET PO (10:54)
[2023-03-29 11:14] LABS: Creatinine Urine 102.06 mg/dL
[2023-03-29 11:23] LABS: Uric Acid 3.8 mg/dL (3.4-7.0)
[2023-03-29 11:27] LABS: Uric Acid Urine Random 64.9 mg/dL
[2023-03-29] MEDS: 0.9 % Sodium Chloride 250 ML IV (11:53)
--- NOTE | 2023-03-29 12:56 | P.PNIM_ITS ---
Subjective Subjective Date of Service: 03/29/23 Interval History: seen and examined this morning follow up for pneumonia, hyponatremia feeling better this morning less cough, less SOB Review of Systems Review of Systems: Yes all other systems are reviewed and are negative Constitutional Constitutional: Denies chills and Denies fever(s) ENT Ears, Nose, Mouth, and Throat: Denies dizziness Cardiovascular Cardiovascular: Denies chest pain, Denies palpitations and Denies dyspnea Respiratory Respiratory: Reports cough and Denies dyspnea Gastrointestinal Gastrointestinal: Denies abdominal pain, Denies nausea and Denies vomiting Neurologic Neurologic: Denies dizziness Endocrine Endocrine: Denies palpitations Physical Exam Vital Signs: Vital Signs: Last Vital Signs Temp 96.8 F 03/29/23 07:23 Pulse 110 H 03/29/23 07:23 Resp 18 03/29/23 07:23 BP 130/88 03/29/23 07:23 Pulse Ox 97 03/29/23 07:23 O2 Del Method Room Air 03/29/23 07:23 O2 Flow Rate 2 03/29/23 02:04 BMI result Body Mass Index 27.4 Const: General: cooperative, comfortable, alert and awake Nutritional Appearance: average body habitus Orientation/consciousness: patient oriented x3 Resp: Effort & Inspection: normal respiratory effort, able to speak in complete sentences, no respiratory distress and no use of accessory muscles Cardio: Rate: tachycardic Heart sounds: S1 normal heart sound present and S2 normal heart sound present GI: Inspection: No distended Palpation (GI): Soft to palpation and nontender Neuro: General: patient oriented x3 Extrem: General: Yes no pedal edema Objective Data Active Medications Acetaminophen (Acetaminophen 325 Mg Tablet) 650 mg PO Q6H PRN PRN Reason: Pain, Mild (Pain Scale 1-3) Last Admin: 03/28/23 23:39 Dose: 650 mg Documented By: LEIGH ANN Docusate Sodium (Docusate Sodium 100 Mg Capsule) 100 mg PO DAILY [facility] Last Admin: 03/29/23 07:27 Dose: 100 mg Documented By: SHELLY Enoxaparin Sodium (Enoxaparin Sodium 40 Mg/0.4 Ml Syringe) 40 mg SUBCUT Q24H [facility] Last Admin: 03/28/23 18:07 Dose: 40 mg Documented By: JULITO Gabapentin (Gabapentin 100 Mg Capsule) 100 mg PO TID [facility] Last Admin: 03/29/23 07:27 Dose: 100 mg Documented By: SHELLY Ceftriaxone Sodium 1 gm/ (Sodium Chloride) 50 mls @ 100 mls/hr IV Q24H [facility] Last Infusion: 03/29/23 11:27 Dose: 0 mls/hr Documented By: SHELLY Sodium Chloride (Ns) 250 mls @ 250 mls/hr IV .Q1H [facility] Stop: 03/29/23 12:59 Last Admin: 03/29/23 11:53 Dose: 250 mls/hr Documented By: SHELLY Azithromycin 500 mg/ Sodium (Chloride) 250 mls @ 125 mls/hr IV Q24H [facility] Ibuprofen (Ibuprofen 600 Mg Tablet) 600 mg PO BEDTIME PRN PRN Reason: Pain, Moderate(Pain Scale 4-6) Last Admin: 03/29/23 10:54 Dose: 600 mg Documented By: SHELLY Lidocaine (Lidocaine 4 % Patch Adh..Patch) 2 patch TRANSDERMA DAILY PRN; Protocol PRN Reason: Back Pain Last Admin: 03/29/23 08:22 Dose: 2 patch Documented By: SHELLY Morphine Sulfate (Morphine Sulfate 2 Mg/Ml Cartridge) 2 mg IVPUSH Q4H PRN; Protocol PRN Reason: Pain, Severe (Pain Scale 7-10) Non-Formulary Medication (Llyosfu-Ojd-Ktjmn-Tenof Alafen [Genvoya]) 1 tab PO DAILY [facility] Ondansetron HCl (Ondansetron Hcl 4 Mg/2 Ml Vial) 4 mg IVPUSH Q8H PRN PRN Reason: Nausea and Vomiting Last Admin: 03/29/23 01:51 Dose: 4 mg Documented By: LEIGH ANN Pharmacy Consult (Consult Rx Perform Med Rec) 1 each MISCELLANE ONCE PRN PRN Reason: Consult order Sodium Chloride (0.9 % Sodium Chloride Flush 3 Ml Syringe) 3 ml IVFLUSH QSHIFT [facility] Last Admin: 03/29/23 07:27 Dose: 3 ml Documented By: SHELLY Labs 03/28/23 07:45 03/29/23 05:41 Labs: Laboratory Results - last 24 hr 03/28/23 03/28/23 03/28/23 07:45 07:49 07:49 Anion Gap Estim Creat Clear Calc Estimated GFR Random Glucose Uric Acid Calcium Troponin I High Sens Procalcitonin 0.03 Ur Random Uric Acid 64.9 Urine Creatinine 102.06 Stl C. cayetanensis PCR Stool Rotavirus A PCR Stl Adenov F 40/ PCR Stool Astrovirus (PCR) Stool Campylobacter PCR Stool Cryptosporidium PCR Stl Sh Tox Pr E STEC PCR Stool E coli O157 PCR Stl Enterotoxigenic E PCR Stool EPEC (PCR) Stool EAEC (PCR) Stl E. histolytica PCR Stool Giardia Lamblia PCR Stl P. shigelloides PCR Stool Salmonella PCR Stool Sapovirus (PCR) Stl Shigella/EIEC PCR St Y.enterocolitica PCR Stool Vibrio (PCR) Stl Vibrio cholerae PCR Stl Norovirus GI/GII PCR Respiratory Panel Lobo Adenovirus (Rapid PCR) B.pert (TEM-PCR) B.parapertussis DNA PCR C. pneumoniae DNA (PCR) C. difficile Tox B Gene Coronavirus OC43 (PCR) Coronavirus HKU1 (PCR) Coronavirus 229E (PCR) Coronavirus NL63 (PCR) Human Metapneumovir PCR Influenza A (RT-PCR) Influenza B (RT-PCR) M. pneumoniae (PCR) Parainfluenza 1 (PCR) Parainfluenza 2 (PCR) Parainfluenza 3 (PCR) Parainfluenza 4 (PCR) RSV (PCR) Entero/Rhino (PCR) SARS-CoV-2 RNA (RT-PCR) 03/28/23 03/28/23 03/28/23 15:33 21:20 23:50 Anion Gap 12 Estim Creat Clear Calc 110.0 Estimated GFR > 60 Random Glucose 114 Uric Acid Calcium 8.3 L Troponin I High Sens Procalcitonin Ur Random Uric Acid Urine Creatinine Stl C. cayetanensis PCR Stool Rotavirus A PCR Stl Adenov F PCR Stool Astrovirus (PCR) Stool Campylobacter PCR Stool Cryptosporidium PCR Stl Sh Tox Pr E STEC PCR Stool E coli O157 PCR Stl Enterotoxigenic E PCR Stool EPEC (PCR) Stool EAEC (PCR) Stl E. histolytica PCR Stool Giardia Lamblia PCR Stl P. shigelloides PCR Stool Salmonella PCR Stool Sapovirus (PCR) Stl Shigella/EIEC PCR St Y.enterocolitica PCR Stool Vibrio (PCR) Stl Vibrio cholerae PCR Stl Norovirus GI/GII PCR Respiratory Panel Lobo See Note Adenovirus (Rapid PCR) Not Detected B.pert (TEM-PCR) Not Detected B.parapertussis DNA PCR Not Detected C. pneumoniae DNA (PCR) Not Detected C. difficile Tox B Gene NEGATIVE Coronavirus OC43 (PCR) Not Detected Coronavirus HKU1 (PCR) Not Detected Coronavirus 229E (PCR) Not Detected Coronavirus NL63 (PCR) Not Detected Human Metapneumovir PCR Not Detected Influenza A (RT-PCR) Not Detected Influenza B (RT-PCR) Not Detected M. pneumoniae (PCR) Not Detected Parainfluenza 1 (PCR) Not Detected Parainfluenza 2 (PCR) Not Detected Parainfluenza 3 (PCR) Not Detected Parainfluenza 4 (PCR) Not Detected RSV (PCR) Not Detected Entero/Rhino (PCR) Not Detected SARS-CoV-2 RNA (RT-PCR) Not Detected 03/28/23 03/29/23 03/29/23 23:54 02:02 05:41 Anion Gap 13 Estim Creat Clear Calc 127.0 Estimated GFR > 60 Random Glucose 95 Uric Acid 3.8 Calcium 8.4 Troponin I High Sens 13.6 Procalcitonin Ur Random Uric Acid Urine Creatinine Stl C. cayetanensis PCR Not Detected Stool Rotavirus A PCR Not Detected Stl Adenov F 40/41 PCR Not Detected Stool Astrovirus (PCR) Not Detected Stool Campylobacter PCR Not Detected Stool Cryptosporidium PCR Not Detected Stl Sh Tox Pr E STEC PCR Not Detected Stool E coli O157 PCR Not applicable Stl Enterotoxigenic E PCR Not Detected Stool EPEC (PCR) Not Detected Stool EAEC (PCR) Not Detected Stl E. histolytica PCR Not Detected Stool Giardia Lamblia PCR Not Detected Stl P. shigelloides PCR Not Detected Stool Salmonella PCR Not Detected Stool Sapovirus (PCR) Not Detected Stl Shigella/EIEC PCR Not Detected St Y.enterocolitica PCR Not Detected Stool Vibrio (PCR) Not Detected Stl Vibrio cholerae PCR Not Detected Stl Norovirus GI/GII PCR Not Detected Respiratory Panel Lobo Adenovirus (Rapid PCR) B.pert (TEM-PCR) B.parapertussis DNA PCR C. pneumoniae DNA (PCR) C. difficile Tox B Gene Coronavirus OC43 (PCR) Coronavirus HKU1 (PCR) Coronavirus 229E (PCR) Coronavirus NL63 (PCR) Human Metapneumovir PCR Influenza A (RT-PCR) Influenza B (RT-PCR) M. pneumoniae (PCR) Parainfluenza 1 (PCR) Parainfluenza 2 (PCR) Parainfluenza 3 (PCR) Parainfluenza 4 (PCR) RSV (PCR) Entero/Rhino (PCR) SARS-CoV-2 RNA (RT-PCR) Assessment and Plan (1) Atypical pneumonia: Status: Acute (2) Acute hyponatremia: Status: Acute Plan This is a 52-year-old male with history of HIV presents to the emergency department with several days of cough, shortness of breath, chills, diarrhea, headache found to have pneumonia and hyponatremia sepsis secondary to Community acquired pneumonia meets criteria with tachycardia and elevated RR LA 1.3 blood cultures pending continue IV ceftriaxone, azithromycin started 03/28 strep pneumo and Legionella urine antigen pending check RPP Not currently requiring supplemental oxygen pleural effusions chest CT showing ? mild chf with b/l pleural effusions ?parapneumonic does not appear to be in CHF will check BNP and obtain echo hyponatremia, likely acute sodium 126 ED discussed with Nephrology-likely mixed picture secondary to SIADH from pneumonia and volume depletion from diarrhea plan for 1.5L fluid restriction will give 250cc NS and repeat urine sodium and urine studies - futher management based on outcome diarrhea no further episodes of diarrhea today C diff, GI panel negative HIV reportedly with T4 count >1000, viral load 0 Continue genvoya chronic back pain continue gabapentin, lidoerm patch, ibuprofen before bed DVT prophylaxis-Lovenox Code status-full code Attending-Dr. Dave Given pneumonia and hyponatremia patient will likely require 2 midnight stay in the hospital for IV antibiotics, close monitoring of sodium levels and specialist evaluation Time Spent With Patient Time: Total time managing care of this patient today ____ minutes. Quality Stroke Does the patient have a stroke diagnosis?: No VTE Prior VTE?: No VTE Risk Level:: Medical - moderate - high VTE Device Contraindication: N/A - Device Ordered VTE Drug Contraindication: N/A - Med Ordered
[2023-03-29] MEDS: Azithromycin 500 MG in 0.9 % Sodium Chloride 250 ML 125 MG IV (13:06)
[2023-03-29 14:12] LABS: Creatinine Urine 115.64 mg/dL; Sodium Urine Random < 20.0 mmol/L
[2023-03-29 14:13] LABS: Osmolality Urine 692 mosm/kg (373-1093)
[2023-03-29 14:39] LABS: Anion Gap 9 (12-20); Blood Urea Nitrogen 19 mg/dL (9-16); Calcium 8.4 mg/dL (8.4-10.2); Carbon Dioxide 23 mmol/L (22-29); Chloride 97 mmol/L (96-108); Creatinine Clr Calc Pharmacy 107.4; Estimated Glomerular Filt Rate > 60; Glucose Random 113 mg/dL (60-115); Potassium 4.4 mmol/L (3.3-5.1); Sodium 125 mmol/L (135-145)
[2023-03-29 15:02] VITALS: BP 121/82; PULSE 125; RESP 18; TEMP 36; O2SAT 95
[2023-03-29] MEDS: 0.9 % Sodium Chloride 1,000 ML 100 ML IVCONT (15:44)
[2023-03-29] MEDS: Enoxaparin Sodium 40 MG/0.4 ML SYRINGE SUBCUT (15:44)
[2023-03-29] MEDS: Urea 15 GM POWDER 30 GM PO (15:51)
[2023-03-29 16:13] LABS: TSH reflex Free T4 1.77 uIU/mL (0.32-4.0)
--- NOTE | 2023-03-29 19:13 | PC.NURSE ---
IV fluids stopped at 250cc @ 1815 per provider.
[2023-03-29 19:22] VITALS: BP 135/88; PULSE 126; RESP 18; TEMP 36.1; O2SAT 97
--- NOTE | 2023-03-29 19:28 | P.PNNP_ITS ---
Subjective Subjective Date of Service: 03/29/23 Interval history: Seen and examiend, events noted Physical Exam Vital Signs: Vital Signs: Last Vital Signs Temp 97 F 03/29/23 19:22 Pulse 126 H 03/29/23 19:22 Resp 18 03/29/23 19:22 BP 135/88 03/29/23 19:22 Pulse Ox 97 03/29/23 19:22 O2 Del Method Room Air 03/29/23 19:22 O2 Flow Rate 2 03/29/23 02:04 BMI result Body Mass Index 27.4 Const: General: no acute distress HEENT: Mouth: Normal oral and palatal mucosa present Eyes: EOM: EOMs intact bilaterally Neck: Neck: Yes supple Resp: Auscultation: diminished lung sounds Cardio: Rate: regular rate GI: Palpation (GI): Soft to palpation Skin: General skin exam: no rashes or lesions noted Neuro: General: moves all extremities Objective Data Labs 03/28/23 07:45 03/29/23 13:58 Labs: Laboratory Results - last 24 hr 03/28/23 03/28/23 03/28/23 07:49 07:49 15:33 Sodium Potassium Chloride Carbon Dioxide Anion Gap BUN Creatinine Estim Creat Clear Calc Estimated GFR Random Glucose Uric Acid Calcium Troponin I High Sens TSH Urine Osmolality Ur Random Sodium Ur Random Uric Acid 64.9 Urine Creatinine 102.06 Stl C. cayetanensis PCR Stool Rotavirus A PCR Stl Adenov F 40/41 PCR Stool Astrovirus (PCR) Stool Campylobacter PCR Stool Cryptosporidium PCR Stl Sh Tox Pr E STEC PCR Stool E coli O157 PCR Stl Enterotoxigenic E PCR Stool EPEC (PCR) Stool EAEC (PCR) Stl E. histolytica PCR Stool Giardia Lamblia PCR Stl P. shigelloides PCR Stool Salmonella PCR Stool Sapovirus (PCR) Stl Shigella/EIEC PCR St Y.enterocolitica PCR Stool Vibrio (PCR) Stl Vibrio cholerae PCR Stl Norovirus GI/GII PCR Respiratory Panel Lobo See Note Adenovirus (Rapid PCR) Not Detected B.pert (TEM-PCR) Not Detected B.parapertussis DNA PCR Not Detected C. pneumoniae DNA (PCR) Not Detected C. difficile Tox B Gene Coronavirus OC43 (PCR) Not Detected Coronavirus HKU1 (PCR) Not Detected Coronavirus 229E (PCR) Not Detected Coronavirus NL63 (PCR) Not Detected Human Metapneumovir PCR Not Detected Influenza A (RT-PCR) Not Detected Influenza B (RT-PCR) Not Detected M. pneumoniae (PCR) Not Detected Parainfluenza 1 (PCR) Not Detected Parainfluenza 2 (PCR) Not Detected Parainfluenza 3 (PCR) Not Detected Parainfluenza 4 (PCR) Not Detected RSV (PCR) Not Detected Entero/Rhino (PCR) Not Detected SARS-CoV-2 RNA (RT-PCR) Not Detected 03/28/23 03/28/23 03/28/23 21:20 23:50 23:54 Sodium 124 L Potassium 4.2 Chloride 94 L Carbon Dioxide 22 Anion Gap 12 BUN 16 Creatinine 0.82 Estim Creat Clear Calc 110.0 Estimated GFR > 60 Random Glucose 114 Uric Acid Calcium 8.3 L Troponin I High Sens TSH Urine Osmolality Ur Random Sodium Ur Random Uric Acid Urine Creatinine Stl C. cayetanensis PCR Not Detected Stool Rotavirus A PCR Not Detected Stl Adenov F 40/41 PCR Not Detected Stool Astrovirus (PCR) Not Detected Stool Campylobacter PCR Not Detected Stool Cryptosporidium PCR Not Detected Stl Sh Tox Pr E STEC PCR Not Detected Stool E coli O157 PCR Not applicable Stl Enterotoxigenic E PCR Not Detected Stool EPEC (PCR) Not Detected Stool EAEC (PCR) Not Detected Stl E. histolytica PCR Not Detected Stool Giardia Lamblia PCR Not Detected Stl P. shigelloides PCR Not Detected Stool Salmonella PCR Not Detected Stool Sapovirus (PCR) Not Detected Stl Shigella/EIEC PCR Not Detected St Y.enterocolitica PCR Not Detected Stool Vibrio (PCR) Not Detected Stl Vibrio cholerae PCR Not Detected Stl Norovirus GI/GII PCR Not Detected Respiratory Panel Lobo Adenovirus (Rapid PCR) B.pert (TEM-PCR) B.parapertussis DNA PCR C. pneumoniae DNA (PCR) C. difficile Tox B Gene NEGATIVE Coronavirus OC43 (PCR) Coronavirus HKU1 (PCR) Coronavirus 229E (PCR) Coronavirus NL63 (PCR) Human Metapneumovir PCR Influenza A (RT-PCR) Influenza B (RT-PCR) M. pneumoniae (PCR) Parainfluenza 1 (PCR) Parainfluenza 2 (PCR) Parainfluenza 3 (PCR) Parainfluenza 4 (PCR) RSV (PCR) Entero/Rhino (PCR) SARS-CoV-2 RNA (RT-PCR) 03/29/23 03/29/23 03/29/23 02:02 05:41 13:20 Sodium 126 L Potassium 4.4 Chloride 97 Carbon Dioxide 20 L Anion Gap 13 BUN 16 Creatinine 0.71 Estim Creat Clear Calc 127.0 Estimated GFR > 60 Random Glucose 95 Uric Acid 3.8 Calcium 8.4 Troponin I High Sens 13.6 TSH Urine Osmolality Ur Random Sodium < 20.0 Ur Random Uric Acid Urine Creatinine Stl C. cayetanensis PCR Stool Rotavirus A PCR Stl Adenov F PCR Stool Astrovirus (PCR) Stool Campylobacter PCR Stool Cryptosporidium PCR Stl Sh Tox Pr E STEC PCR Stool E coli O157 PCR Stl Enterotoxigenic E PCR Stool EPEC (PCR) Stool EAEC (PCR) Stl E. histolytica PCR Stool Giardia Lamblia PCR Stl P. shigelloides PCR Stool Salmonella PCR Stool Sapovirus (PCR) Stl Shigella/EIEC PCR St Y.enterocolitica PCR Stool Vibrio (PCR) Stl Vibrio cholerae PCR Stl Norovirus GI/GII PCR Respiratory Panel Lobo Adenovirus (Rapid PCR) B.pert (TEM-PCR) B.parapertussis DNA PCR C. pneumoniae DNA (PCR) C. difficile Tox B Gene Coronavirus OC43 (PCR) Coronavirus HKU1 (PCR) Coronavirus 229E (PCR) Coronavirus NL63 (PCR) Human Metapneumovir PCR Influenza A (RT-PCR) Influenza B (RT-PCR) M. pneumoniae (PCR) Parainfluenza 1 (PCR) Parainfluenza 2 (PCR) Parainfluenza 3 (PCR) Parainfluenza 4 (PCR) RSV (PCR) Entero/Rhino (PCR) SARS-CoV-2 RNA (RT-PCR) 03/29/23 03/29/23 03/29/23 13:20 13:20 13:58 Sodium 125 L Potassium 4.4 Chloride 97 Carbon Dioxide 23 Anion Gap 9 L BUN 19 H Creatinine 0.84 Estim Creat Clear Calc 107.4 Estimated GFR > 60 Random Glucose 113 Uric Acid Calcium 8.4 Troponin I High Sens TSH 1.77 Urine Osmolality 692 Ur Random Sodium Ur Random Uric Acid Urine Creatinine 115.64 Stl C. cayetanensis PCR Stool Rotavirus A PCR Stl Adenov F 40/41 PCR Stool Astrovirus (PCR) Stool Campylobacter PCR Stool Cryptosporidium PCR Stl Sh Tox Pr E STEC PCR Stool E coli O157 PCR Stl Enterotoxigenic E PCR Stool EPEC (PCR) Stool EAEC (PCR) Stl E. histolytica PCR Stool Giardia Lamblia PCR Stl P. shigelloides PCR Stool Salmonella PCR Stool Sapovirus (PCR) Stl Shigella/EIEC PCR St Y.enterocolitica PCR Stool Vibrio (PCR) Stl Vibrio cholerae PCR Stl Norovirus GI/GII PCR Respiratory Panel Lobo Adenovirus (Rapid PCR) B.pert (TEM-PCR) B.parapertussis DNA PCR C. pneumoniae DNA (PCR) C. difficile Tox B Gene Coronavirus OC43 (PCR) Coronavirus HKU1 (PCR) Coronavirus 229E (PCR) Coronavirus NL63 (PCR) Human Metapneumovir PCR Influenza A (RT-PCR) Influenza B (RT-PCR) M. pneumoniae (PCR) Parainfluenza 1 (PCR) Parainfluenza 2 (PCR) Parainfluenza 3 (PCR) Parainfluenza 4 (PCR) RSV (PCR) Entero/Rhino (PCR) SARS-CoV-2 RNA (RT-PCR) Microbiology Microbiology Results: Microbiology 03/28/23 12:14 Blood - Venous Blood Culture - Preliminary No growth after 24 hours. 03/28/23 12:14 Blood - Venous Blood Culture - Preliminary No growth after 24 hours. Procedures Date of Service Date of Service: 03/29/23 Assessment & Plan Assessment and plan (1) Atypical pneumonia: Status: Acute (2) Acute hyponatremia: Status: Acute Plan HypoNatremia and appears euvolemic on exambut urine studies suggestive of hypovolemic hypoNat given Payton < 20 x 2; now CT raises ques of CHF/Pleural e ffussion Tx with IVF and Urea thus far no impact on SNa Appears to be a mixed picture with inapp ADHsupported by UAL not elevated and lack of response to IVF REC: cont Urea and PO fluid restirction and add NaCL tabs, may consider trial of tolvapatn; check card echo and BNP level, am cortisol level; track SNA and need to avoid to rapid correction ( goal of no more than 8 meq/24 hrs) Time Spent With Patient Time: Total time managing care of this patient today ____ minutes. Progress Note: Quality Stroke Does the patient have a stroke diagnosis?: No
[2023-03-29 19:55] LABS: Sodium 128 mmol/L (135-145)
[2023-03-29] MEDS: Urea 15 GM POWDER PO (19:57)
[2023-03-29 20:08] LABS: B Type Natriuretic Peptide 871 pg/mL (<100)
[2023-03-29 20:14] LABS: Osmolality Urine 779 mosm/kg (373-1093); Sodium Urine Random < 20.0 mmol/L
[2023-03-29] MEDS: Morphine Sulfate 2 MG/ML CARTRIDGE IVPUSH (21:41)
[2023-03-29 23:00] VITALS: RESP 18
[2023-03-29 23:04] LABS: Anion Gap 14 (12-20); Blood Urea Nitrogen 38 mg/dL (9-16); Calcium 8.7 mg/dL (8.4-10.2); Carbon Dioxide 23 mmol/L (22-29); Chloride 96 mmol/L (96-108); Creatinine Clr Calc Pharmacy 118.7; Estimated Glomerular Filt Rate > 60; Glucose Random 102 mg/dL (60-115); Potassium 4.4 mmol/L (3.3-5.1); Sodium 129 mmol/L (135-145)
[2023-03-29] MEDS: oxyCODONE HCl Immed Release 5 MG TABLET PO (23:48)
[2023-03-30] MEDS: Melatonin 3 MG TABLET 6 MG PO (00:49)
[2023-03-30 04:00] VITALS: TEMP -17.7; TEMP 0
[2023-03-30 06:03] VITALS: BP 138/100; PULSE 116; RESP 18; TEMP 36; O2SAT 100
[2023-03-30 06:56] VITALS: BP 138/99; PULSE 111; RESP 18; TEMP 36.1; O2SAT 98
[2023-03-30 07:11] LABS: Anion Gap 14 (12-20); Carbon Dioxide 23 mmol/L (22-29); Chloride 95 mmol/L (96-108); Potassium 3.8 mmol/L (3.3-5.1); Sodium 128 mmol/L (135-145)
[2023-03-30] MEDS: Docusate Sodium 100 MG CAPSULE PO (08:21)
[2023-03-30] MEDS: Gabapentin 100 MG CAPSULE PO ×2 (08:21→15:59)
[2023-03-30] MEDS: 0.9 % Sodium Chloride Flush 3 ML SYRINGE IVFLUSH ×2 (08:22→17:15)
--- NOTE | 2023-03-30 09:52 | PM.CNCAR ---
History of Present Illness History of Present Illness Date of Service: 03/30/23 Requesting physician: Geneva Cabrera Consult reason: congestive heart failure Chief complaint: pneumonia, hyponatremia Narrative: I was consulted to see Nico in cardiology consultation today for symptoms of shortness of breath and elevated BNP as well as echocardiographic findings of cardiomyopathy. 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 He has chronic issues with back pain in thoracic cage pain for which she is on gabapentin. He also has prior history of HIV which is under control with retroviral therapy with undetectable viral count as well as normal CD4 count. Patient generally has no chronic medical problem. Came in with progressive shortness of breath initially felt that he might have atypical pneumonia and also hyponatremia. Has been seen by Nephrology. Echocardiogram was done yesterday which showed LVEF of about 15-20% with diffusely hypokinetic left ventricle with elevated filling pressures. Cardiology consult was sort. Patient has also noticed to have sinus tachycardia. Patient is anxious of being in the hospital. Said did not sleep well last night because of pain in his back and being in the hospital. He gets gabapentin at home for the pain. His hyponatremia as remained stable with this morning sodium level 128. Patient did receive some diuretics yesterday as overnight diuresed and says shortness of breath is better. However clinically still appears to be short of breath. Blood pressure is elevated. Review of Systems Constitutional: Constitutional: Reports no additional constitutional complaints, Denies body ache(s), Denies chills, Denies fatigue, Denies fever(s) and Reports other (Viral syndrome) Eyes: Eyes: Reports no additional eye complaints Cardiovascular: Cardiovascular: Denies chest pain, Denies rapid heart rate, Denies leg edema, Denies lightheadedness, Denies Loss of Consciousness, Denies palpitations, Reports dyspnea on exertion and Reports orthopnea Respiratory: Respiratory: Reports no additional respiratory complaints and Reports dyspnea on exertion Gastrointestinal: Gastrointestinal: Reports no additional gastrointestinal complaints Genitourinary: Genitourinary: Reports no additional male genitourinary complaints Musculoskeletal: Musculoskeletal: Reports back pain Neurologic: Reports system reviewed and no additional complaints, except as documented Endocrine: Endocrine: Denies fatigue and Denies palpitations Hematologic/Lymphatic: Hematologic/Lymphatic: Reports no additional hematologic/lymphatic complaints Allergic/Immunologic: Allergic/Immunologic: Reports no additional allergic/immunologic complaints [facility] Past Medical History Medical History HIV (human immunodeficiency virus infection) Social History Social History Household Members: Significant Other Housing: House Do you presently have visiting nurse or other home services: No Alcohol intake: never Patient Tobacco Use Status: Never used Tobacco Use of substances other than those prescribed or required for medical reasons: No Currently Displaying Signs/Symptoms of Drug Intoxication Withdrawal: No Have you been hit, kicked, punched, or otherwise hurt by someone within the past year? If so, by whom?: No Do you feel safe in your current relationship?: No Is there a partner from a previous relationship who is making you feel unsafe now?: No Are you made to feel afraid or neglected: No Advance Directives: No Advance Directives Information Provided: Yes Do you have thoughts of harming others: None Do you have a plan to hurt others: No Plan Recently lost weight without trying: No service: No Meds Allergies Allergy/AdvReac Type Severity Reaction Status Date / Time Sulfa (Sulfonamide Allergy Unknown Verified 03/28/23 05:51 Antibiotics) Active Medications: Current Medications Acetaminophen (Acetaminophen 325 Mg Tablet) 650 mg PO Q6H PRN PRN Reason: Pain, Mild (Pain Scale 1-3) Last Admin: 03/28/23 23:39 Dose: 650 mg Docusate Sodium (Docusate Sodium 100 Mg Capsule) 100 mg PO DAILY [facility] Last Admin: 03/30/23 08:21 Dose: 100 mg Enoxaparin Sodium (Enoxaparin Sodium 40 Mg/0.4 Ml Syringe) 40 mg SUBCUT Q24H [facility] Last Admin: 03/29/23 15:44 Dose: 40 mg Furosemide (Furosemide 20 Mg/2 Ml Vial) 20 mg IVPUSH BID@0900,1800 [facility]; Protocol Gabapentin (Gabapentin 100 Mg Capsule) 100 mg PO TID [facility] Last Admin: 03/30/23 08:21 Dose: 100 mg Ceftriaxone Sodium 1 gm/ (Sodium Chloride) 50 mls @ 100 mls/hr IV Q24H [facility] Last Infusion: 03/29/23 11:27 Dose: Infused Azithromycin 500 mg/ Sodium (Chloride) 250 mls @ 125 mls/hr IV Q24H [facility] Last Infusion: 03/29/23 15:19 Dose: Infused Lidocaine (Lidocaine 4 % Patch Adh..Patch) 2 patch TRANSDERMA DAILY PRN; Protocol PRN Reason: Back Pain Last Admin: 03/29/23 08:22 Dose: 2 patch Morphine Sulfate (Morphine Sulfate 2 Mg/Ml Cartridge) 2 mg IVPUSH Q4H PRN; Protocol PRN Reason: Pain, Severe (Pain Scale 7-10) Last Admin: 03/29/23 21:41 Dose: 2 mg Pt Own(Elviteg-Cob- Emtri-Tenof Alafen [ Genvoya] 150-150-200 -10 Mg Table 1 tab PO DAILY@1730 NIELS Ondansetron HCl (Ondansetron Hcl 4 Mg/2 Ml Vial) 4 mg IVPUSH Q8H PRN PRN Reason: Nausea and Vomiting Last Admin: 03/29/23 01:51 Dose: 4 mg Oxycodone HCl (Oxycodone Hcl Immed Release 5 Mg Tablet) 5 mg PO Q6H PRN PRN Reason: Pain, Moderate(Pain Scale 4-6) Last Admin: 03/29/23 23:48 Dose: 5 mg Pharmacy Consult (Consult Rx Perform Med Rec) 1 each MISCELLANE ONCE PRN PRN Reason: Consult order Sacubitril/Valsartan (Sacubitril/Valsartan 1 Tab Tablet) 1 tab PO BID [facility]; Protocol Sodium Chloride (0.9 % Sodium Chloride Flush 3 Ml Syringe) 3 ml IVFLUSH QSHIFT [facility] Last Admin: 03/30/23 08:22 Dose: 3 ml Spironolactone (Spironolactone 25 Mg Tablet) 12.5 mg PO DAILY [facility]; Protocol Home Medications Medication Instructions Recorded Confirmed Last Taken Type docusate sodium 100 mg capsule 100 mg PO DAILY 03/28/23 03/28/23 Unknown History elviteg 150 mg-cob 150 mg-emtricit 1 tab PO DAILY 03/28/23 03/28/23 Unknown History 200 mg-tenofo alafenam 10 mg tablet (Genvoya) gabapentin 100 mg capsule 100 mg PO TID 03/28/23 03/28/23 Unknown History ibuprofen 800 mg tablet 800 mg PO Q8H 03/28/23 03/28/23 Unknown History lidocaine 4 % topical patch 2 patch topical DAILY PRN Back Pain 03/28/23 03/28/23 Unknown History loperamide 2 mg tablet 2 mg PO BID PRN Diarrhea 03/28/23 03/28/23 Unknown History Physical Exam Vital Signs: Vital Signs: Last Vital Signs Temp 97 F 03/30/23 06:56 Pulse 111 H 03/30/23 06:56 Resp 18 03/30/23 06:56 BP 138/99 H 03/30/23 06:56 Pulse Ox 98 03/30/23 06:56 O2 Del Method Room Air 03/30/23 06:56 O2 Flow Rate 2 03/29/23 02:04 BMI result Body Mass Index 27.4 Const: General: cooperative, comfortable, alert, awake, in distress mild and respiratory and anxious Nutritional Appearance: average body habitus Orientation/consciousness: patient oriented x3 HEENT: Head: Yes normocephalic and Yes atraumatic Neck: Neck: Yes trachea midline, Yes supple and Yes JVD Resp: Effort & Inspection: normal respiratory effort Auscultation: crackles on the left at the base Cardio: Jugular venous distension: JVD Rate: tachycardic Rhythm: regular rhythm Heart sounds: S1 normal heart sound present, S2 normal heart sound present, no click, Gallop heart sound present S3 gallop, no murmurs and no rubs GI: Auscultation: normal bowel sounds Skin: General skin exam: no rashes or lesions noted Neuro: General: patient oriented x3 and no focal motor deficits Extrem: General: Yes no clubbing, cyanosis or edema Objective Labs and Meds 03/28/23 07:45 03/30/23 06:49 Lab results: Laboratory Results - last 24 hr 03/28/23 03/28/23 03/28/23 07:49 07:49 23:54 Sodium Potassium Chloride Carbon Dioxide Anion Gap BUN Creatinine Estim Creat Clear Calc Estimated GFR Random Glucose Uric Acid Calcium B-Natriuretic Peptide TSH Urine Osmolality Ur Random Sodium Ur Random Uric Acid 64.9 Urine Creatinine 102.06 Stl C. cayetanensis PCR Not Detected Stool Rotavirus A PCR Not Detected Stl Adenov F 40/41 PCR Not Detected Stool Astrovirus (PCR) Not Detected Stool Campylobacter PCR Not Detected Stool Cryptosporidium PCR Not Detected Stl Sh Tox Pr E STEC PCR Not Detected Stool E coli O157 PCR Not applicable Stl Enterotoxigenic E PCR Not Detected Stool EPEC (PCR) Not Detected Stool EAEC (PCR) Not Detected Stl E. histolytica PCR Not Detected Stool Giardia Lamblia PCR Not Detected Stl P. shigelloides PCR Not Detected Stool Salmonella PCR Not Detected Stool Sapovirus (PCR) Not Detected Stl Shigella/EIEC PCR Not Detected St Y.enterocolitica PCR Not Detected Stool Vibrio (PCR) Not Detected Stl Vibrio cholerae PCR Not Detected Stl Norovirus GI/GII PCR Not Detected 03/29/23 03/29/23 03/29/23 05:41 13:20 13:20 Sodium Potassium Chloride Carbon Dioxide Anion Gap BUN Creatinine Estim Creat Clear Calc Estimated GFR Random Glucose Uric Acid 3.8 Calcium B-Natriuretic Peptide TSH Urine Osmolality Ur Random Sodium < 20.0 Ur Random Uric Acid Urine Creatinine 115.64 Stl C. cayetanensis PCR Stool Rotavirus A PCR Stl Adenov F 40/ PCR Stool Astrovirus (PCR) Stool Campylobacter PCR Stool Cryptosporidium PCR Stl Sh Tox Pr E STEC PCR Stool E coli O157 PCR Stl Enterotoxigenic E PCR Stool EPEC (PCR) Stool EAEC (PCR) Stl E. histolytica PCR Stool Giardia Lamblia PCR Stl P. shigelloides PCR Stool Salmonella PCR Stool Sapovirus (PCR) Stl Shigella/EIEC PCR St Y.enterocolitica PCR Stool Vibrio (PCR) Stl Vibrio cholerae PCR Stl Norovirus GI/GII PCR 03/29/23 03/29/23 03/29/23 13:20 13:58 18:58 Sodium 125 L Potassium 4.4 Chloride 97 Carbon Dioxide 23 Anion Gap 9 L BUN 19 H Creatinine 0.84 Estim Creat Clear Calc 107.4 Estimated GFR > 60 Random Glucose 113 Uric Acid Calcium 8.4 B-Natriuretic Peptide 871 H TSH 1.77 Urine Osmolality 692 Ur Random Sodium Ur Random Uric Acid Urine Creatinine Stl C. cayetanensis PCR Stool Rotavirus A PCR Stl Adenov F 40/41 PCR Stool Astrovirus (PCR) Stool Campylobacter PCR Stool Cryptosporidium PCR Stl Sh Tox Pr E STEC PCR Stool E coli O157 PCR Stl Enterotoxigenic E PCR Stool EPEC (PCR) Stool EAEC (PCR) Stl E. histolytica PCR Stool Giardia Lamblia PCR Stl P. shigelloides PCR Stool Salmonella PCR Stool Sapovirus (PCR) Stl Shigella/EIEC PCR St Y.enterocolitica PCR Stool Vibrio (PCR) Stl Vibrio cholerae PCR Stl Norovirus GI/GII PCR 03/29/23 03/29/23 03/29/23 18:59 19:53 19:53 Sodium 128 L Potassium Chloride Carbon Dioxide Anion Gap BUN Creatinine Estim Creat Clear Calc Estimated GFR Random Glucose Uric Acid Calcium B-Natriuretic Peptide TSH Urine Osmolality 779 Ur Random Sodium < 20.0 Ur Random Uric Acid Urine Creatinine Stl C. cayetanensis PCR Stool Rotavirus A PCR Stl Adenov F 40/41 PCR Stool Astrovirus (PCR) Stool Campylobacter PCR Stool Cryptosporidium PCR Stl Sh Tox Pr E STEC PCR Stool E coli O157 PCR Stl Enterotoxigenic E PCR Stool EPEC (PCR) Stool EAEC (PCR) Stl E. histolytica PCR Stool Giardia Lamblia PCR Stl P. shigelloides PCR Stool Salmonella PCR Stool Sapovirus (PCR) Stl Shigella/EIEC PCR St Y.enterocolitica PCR Stool Vibrio (PCR) Stl Vibrio cholerae PCR Stl Norovirus GI/GII PCR 03/29/23 03/30/23 21:56 06:49 Sodium 129 L 128 L Potassium 4.4 3.8 Chloride 96 95 L Carbon Dioxide 23 23 Anion Gap 14 14 BUN 38 H Creatinine 0.76 Estim Creat Clear Calc 118.7 Estimated GFR > 60 Random Glucose 102 Uric Acid Calcium 8.7 B-Natriuretic Peptide TSH Urine Osmolality Ur Random Sodium Ur Random Uric Acid Urine Creatinine Stl C. cayetanensis PCR Stool Rotavirus A PCR Stl Adenov F PCR Stool Astrovirus (PCR) Stool Campylobacter PCR Stool Cryptosporidium PCR Stl Sh Tox Pr E STEC PCR Stool E coli O157 PCR Stl Enterotoxigenic E PCR Stool EPEC (PCR) Stool EAEC (PCR) Stl E. histolytica PCR Stool Giardia Lamblia PCR Stl P. shigelloides PCR Stool Salmonella PCR Stool Sapovirus (PCR) Stl Shigella/EIEC PCR St Y.enterocolitica PCR Stool Vibrio (PCR) Stl Vibrio cholerae PCR Stl Norovirus GI/GII PCR ECHO Conclusions: - 1. Mildly dilated left ventricle with severely reduced LV? ? ? ejection fraction of 15-20%? 2. Moderately dilated left atrium? 3. Moderate to severe mitral regurgitation secondary to LV ? ? ? pathology? 4. Moderately elevated right ventricular systolic pressure with? significant elevated right atrial pressures? 5. Trivial pericardial effusion? ? EKG shows sinus tachycardia with poor R-wave progression Imaging Radiologist's impression: Impressions Chest CT 03/28/23 20:24 IMPRESSION: Limited exam due to respiratory motion artifact. Question mild CHF with bilateral pleural effusions, right greater than left.. Fleischner guidelines were followed. Assessment and Plan (1) Heart failure, systolic, with acute decompensation: Status: Acute Patient with severe LV systolic dysfunction with signs and symptoms consistent with decompensated congestive heart failure with couple of poor prognostic marker including hyponatremia as well as sinus tachycardia. I discussed with the patient about management of heart failure on the findings. He will require ischemic workup once his heart failure is more compensated. If he has no significant ischemic component will need cardiac MRI to evaluate for evidence of any other etiologies that might be minutes. Will also need genetic testing as outpatient. For now would start heart failure therapy with Entresto 24-26 mg b.i.d. and Aldactone 12.5 mg daily along with gentle diuresis with Lasix 20 mg b.i.d.. Strict intake and output chart needs to be pursued. Continue to monitor renal function as well as sodium level closely. Once he is compensated would add beta-bartolo therapy. We discussed about heart failure pathophysiology in details and neurohormonal modulation therapy with patient in details. Advised him to the patient. He understands. Treat his anxiety as well as pain syndrome with gabapentin and probably a sleep aid at nighttime. Will continue to follow with you Time Spent With Patient Time: Total time managing care of this patient today ____ minutes. Procedures Date of Service Date of Service: 03/30/23
[2023-03-30] MEDS: Urea 15 GM POWDER PO (09:56)
[2023-03-30] MEDS: Furosemide 20 MG/2 ML VIAL IVPUSH ×2 (09:57→17:14)
[2023-03-30] MEDS: Spironolactone 25 MG TABLET 12.5 MG PO (09:58)
[2023-03-30] MEDS: Sacubitril/Valsartan 24/26 1 TAB TABLET PO ×2 (09:59→20:15)
--- NOTE | 2023-03-30 10:46 | HO.PM.IMPN ---
Subjective Subjective Date of Service: 03/30/23 Interval History: seen and examined this morning follow up for sob CT showing b/l pleural effusions, ECHO with low EF pt reporting left rib pain - chronic denies significant sob, no chest pain Review of Systems Review of Systems: Yes all other systems are reviewed and are negative Constitutional Constitutional: Denies chills and Denies fever(s) ENT Ears, Nose, Mouth, and Throat: Denies dizziness Cardiovascular Cardiovascular: Denies chest pain and Denies palpitations Respiratory Respiratory: Reports cough Gastrointestinal Gastrointestinal: Denies abdominal pain, Denies nausea and Denies vomiting Neurologic Neurologic: Denies dizziness Endocrine Endocrine: Denies palpitations Physical Exam Vital Signs: Vital Signs: Last Vital Signs Temp 97 F 03/30/23 06:56 Pulse 111 H 03/30/23 06:56 Resp 18 03/30/23 06:56 BP 138/99 H 03/30/23 06:56 Pulse Ox 98 03/30/23 06:56 O2 Del Method Room Air 03/30/23 06:56 O2 Flow Rate 2 03/29/23 02:04 BMI result Body Mass Index 27.4 Const: General: cooperative, comfortable, alert and awake Nutritional Appearance: average body habitus Orientation/consciousness: patient oriented x3 Resp: Effort & Inspection: normal respiratory effort, able to speak in complete sentences, no respiratory distress and no use of accessory muscles Cardio: Rate: tachycardic Heart sounds: S1 normal heart sound present, S2 normal heart sound present and no murmurs GI: Inspection: No distended Palpation (GI): Soft to palpation and nontender Neuro: General: patient oriented x3, moves all extremities and CN's II-XI intact bilaterally Extrem: General: Yes no pedal edema Psych: Appearance: well kempt Affect: normal affect Objective Data Active Medications Acetaminophen (Acetaminophen 325 Mg Tablet) 650 mg PO Q6H PRN PRN Reason: Pain, Mild (Pain Scale 1-3) Last Admin: 03/28/23 23:39 Dose: 650 mg Documented By: LEIGH ANN Docusate Sodium (Docusate Sodium 100 Mg Capsule) 100 mg PO DAILY [facility] Last Admin: 03/30/23 08:21 Dose: 100 mg Documented By: MASSIEL Enoxaparin Sodium (Enoxaparin Sodium 40 Mg/0.4 Ml Syringe) 40 mg SUBCUT Q24H [facility] Last Admin: 03/29/23 15:44 Dose: 40 mg Documented By: SHELLY Furosemide (Furosemide 20 Mg/2 Ml Vial) 20 mg IVPUSH BID@0900,1800 [facility]; Protocol Last Admin: 03/30/23 09:57 Dose: 20 mg Documented By: MASSIEL Gabapentin (Gabapentin 100 Mg Capsule) 200 mg PO BEDTIME NIELS Gabapentin (Gabapentin 100 Mg Capsule) 100 mg PO BID@0900,1500 NIELS Ceftriaxone Sodium 1 gm/ (Sodium Chloride) 50 mls @ 100 mls/hr IV Q24H [facility] Last Infusion: 03/29/23 11:27 Dose: 0 mls/hr Documented By: SHELLY Azithromycin 500 mg/ Sodium (Chloride) 250 mls @ 125 mls/hr IV Q24H [facility] Last Infusion: 03/29/23 15:19 Dose: 0 mls/hr Documented By: SHELLY Lidocaine (Lidocaine 4 % Patch Adh..Patch) 2 patch TRANSDERMA DAILY PRN; Protocol PRN Reason: Back Pain Last Admin: 03/29/23 08:22 Dose: 2 patch Documented By: SHELLY Morphine Sulfate (Morphine Sulfate 2 Mg/Ml Cartridge) 2 mg IVPUSH Q4H PRN; Protocol PRN Reason: Pain, Severe (Pain Scale 7-10) Last Admin: 03/29/23 21:41 Dose: 2 mg Documented By: MOO Pt Own(Elviteg-Cob- Emtri-Tenof Alafen [ Genvoya] 150-150-200 -10 Mg Table 1 tab PO DAILY@1730 NIELS Ondansetron HCl (Ondansetron Hcl 4 Mg/2 Ml Vial) 4 mg IVPUSH Q8H PRN PRN Reason: Nausea and Vomiting Last Admin: 03/29/23 01:51 Dose: 4 mg Documented By: LEIGH ANN Pharmacy Consult (Consult Rx Perform Med Rec) 1 each MISCELLANE ONCE PRN PRN Reason: Consult order Sacubitril/Valsartan (Sacubitril/Valsartan 1 Tab Tablet) 1 tab PO BID [facility]; Protocol Last Admin: 03/30/23 09:59 Dose: 1 tab Documented By: MASSIEL Sodium Chloride (0.9 % Sodium Chloride Flush 3 Ml Syringe) 3 ml IVFLUSH QSHIFT [facility] Last Admin: 03/30/23 08:22 Dose: 3 ml Documented By: MASSIEL Spironolactone (Spironolactone 25 Mg Tablet) 12.5 mg PO DAILY [facility]; Protocol Last Admin: 03/30/23 09:58 Dose: 12.5 mg Documented By: MASSIEL Tramadol HCl (Tramadol Hcl 50 Mg Tablet) 50 mg PO Q6H PRN PRN Reason: Pain, Moderate(Pain Scale 4-6) Labs 03/28/23 07:45 03/30/23 06:49 Labs: Laboratory Results - last 24 hr 03/28/23 03/28/23 03/29/23 07:49 07:49 05:41 Anion Gap Estim Creat Clear Calc Estimated GFR Random Glucose Uric Acid 3.8 Calcium B-Natriuretic Peptide TSH Urine Osmolality Ur Random Sodium Ur Random Uric Acid 64.9 Urine Creatinine 102.06 03/29/23 03/29/23 03/29/23 13:20 13:20 13:20 Anion Gap Estim Creat Clear Calc Estimated GFR Random Glucose Uric Acid Calcium B-Natriuretic Peptide TSH Urine Osmolality 692 Ur Random Sodium < 20.0 Ur Random Uric Acid Urine Creatinine 115.64 03/29/23 03/29/23 03/29/23 13:58 18:58 19:53 Anion Gap 9 L Estim Creat Clear Calc 107.4 Estimated GFR > 60 Random Glucose 113 Uric Acid Calcium 8.4 B-Natriuretic Peptide 871 H TSH 1.77 Urine Osmolality 779 Ur Random Sodium Ur Random Uric Acid Urine Creatinine 03/29/23 03/29/23 03/30/23 19:53 21:56 06:49 Anion Gap 14 14 Estim Creat Clear Calc 118.7 Estimated GFR > 60 Random Glucose 102 Uric Acid Calcium 8.7 B-Natriuretic Peptide TSH Urine Osmolality Ur Random Sodium < 20.0 Ur Random Uric Acid Urine Creatinine Microbiology Microbiology Results: Microbiology 03/28/23 12:14 Blood Culture - Preliminary Blood - Venous No growth after 24 hours. 03/28/23 12:14 Blood Culture - Preliminary Blood - Venous No growth after 24 hours. Assessment and Plan (1) Heart failure, systolic, with acute decompensation: Status: Acute (2) Acute hyponatremia: Status: Acute Plan This is a 52-year-old male with history of HIV presents to the emergency department with several days of cough, shortness of breath, chills, diarrhea, headache found to have pneumonia and hyponatremia Shortness of breath initially thought to be related to sepsis from CAP given initial CXR however chest CT showed no evidence of pneumonia, but rather evidence of CHF RPP negative, lactic acid negative and procalcitonin low at 0.03 sepsis/pneumonia ruled out will d/c IV abx acute decompensated CHF chest CT showing mild chf with b/l pleural effusions BNP 871 ECHO with dilated left ventricle and severely reduced LVEF 15-20% severe global hypokinesis cardiology following plan to start enresto, aldactone IV lasix 20 bid strict Is&Os 2L fuid restriction will need further work up outpatient hold off on BB at this time cardiac monitoring hyponatremia, likely acute sodium up to 128 TSH wnl likely r/t CHF plan for urea 15 bid follow sodium bid nephrology following diarrhea no further episodes of diarrhea C diff, GI panel negative HIV reportedly with T4 count >1000, viral load 0 Continue genvoya chronic back pain has been unable to tolerate tylenol or oxycodone continue gabapentin (will increase bedtime dose to 200 mg), lidoderm patch continue prn morphine for severe pain has been on ultram in past, would like to try for less severe pain avoid NSAIDs given CHF DVT prophylaxis-Lovenox Code status-full code Attending-Dr. Dave patient requires ongoing inpatient stay for work up and management of acute decompensated heart failure Time Spent With Patient Time: Total time managing care of this patient today ____ minutes. Quality Stroke Does the patient have a stroke diagnosis?: No VTE Prior VTE?: No VTE Risk Level:: Medical - moderate - high VTE Device Contraindication: N/A - Device Ordered VTE Drug Contraindication: N/A - Med Ordered
[2023-03-30] MEDS: Lidocaine 4 % Patch ADH..PATCH 2 PATCH TRANSDERMA (11:38)
--- NOTE | 2023-03-30 13:39 | PM.PNNEP ---
Subjective Subjective Date of Service: 03/30/23 Interval history: Seen and examined, events noted Physical Exam Vital Signs: Vital Signs: Last Vital Signs Temp 97 F 03/30/23 06:56 Pulse 111 H 03/30/23 06:56 Resp 18 03/30/23 06:56 BP 138/99 H 03/30/23 06:56 Pulse Ox 98 03/30/23 06:56 O2 Del Method Room Air 03/30/23 06:56 O2 Flow Rate 2 03/29/23 02:04 BMI result Body Mass Index 27.4 Const: General: no acute distress HEENT: Mouth: Normal oral and palatal mucosa present Eyes: EOM: EOMs intact bilaterally Neck: Neck: Yes supple Resp: Auscultation: diminished lung sounds Cardio: Rate: regular rate GI: Palpation (GI): Soft to palpation Skin: General skin exam: no rashes or lesions noted Neuro: General: moves all extremities Objective Data Labs 03/28/23 07:45 03/30/23 06:49 Labs: Laboratory Results - last 24 hr 03/29/23 03/29/23 03/29/23 13:20 13:20 13:20 Sodium Potassium Chloride Carbon Dioxide Anion Gap BUN Creatinine Estim Creat Clear Calc Estimated GFR Random Glucose Calcium B-Natriuretic Peptide TSH Urine Osmolality 692 Ur Random Sodium < 20.0 Urine Creatinine 115.64 03/29/23 03/29/23 03/29/23 13:58 18:58 18:59 Sodium 125 L 128 L Potassium 4.4 Chloride 97 Carbon Dioxide 23 Anion Gap 9 L BUN 19 H Creatinine 0.84 Estim Creat Clear Calc 107.4 Estimated GFR > 60 Random Glucose 113 Calcium 8.4 B-Natriuretic Peptide 871 H TSH 1.77 Urine Osmolality Ur Random Sodium Urine Creatinine 03/29/23 03/29/23 03/29/23 19:53 19:53 21:56 Sodium 129 L Potassium 4.4 Chloride 96 Carbon Dioxide 23 Anion Gap 14 BUN 38 H Creatinine 0.76 Estim Creat Clear Calc 118.7 Estimated GFR > 60 Random Glucose 102 Calcium 8.7 B-Natriuretic Peptide TSH Urine Osmolality 779 Ur Random Sodium < 20.0 Urine Creatinine 03/30/23 06:49 Sodium 128 L Potassium 3.8 Chloride 95 L Carbon Dioxide 23 Anion Gap 14 BUN Creatinine Estim Creat Clear Calc Estimated GFR Random Glucose Calcium B-Natriuretic Peptide TSH Urine Osmolality Ur Random Sodium Urine Creatinine Microbiology Microbiology Results: Microbiology 03/28/23 12:14 Blood - Venous Blood Culture - Preliminary No growth after 24 hours. 03/28/23 12:14 Blood - Venous Blood Culture - Preliminary No growth after 24 hours. Procedures Date of Service Date of Service: 03/30/23 Assessment & Plan Assessment and plan (1) Atypical pneumonia: Status: Acute (2) Acute hyponatremia: Status: Acute Plan HypoNatremia and initial thought to be euvolemic but now w/u revelas signif card dysfuc and now clinically most c/w Card dysfunc asoc non-osmotic incr ADH release as this is supported by the Urine Na and osm pattern BUT typically these PT havelow BPs and evid of periph edema and/orCHF With GDMT Tx and use of loop diuretcis--- this may help renal perfusion and decr non-osm ADh and incr SNa. REC: Urea 15 gm bid; start loop diuretic and trrack SNa q 12 hrs;will consider tolvapatan ( no on formualry) Time Spent With Patient Time: Total time managing care of this patient today ____ minutes. Progress Note: Quality Stroke Does the patient have a stroke diagnosis?: No
[2023-03-30 15:55] VITALS: BP 126/80; PULSE 104; RESP 18; TEMP 36.4; O2SAT 94
[2023-03-30] MEDS: Enoxaparin Sodium 40 MG/0.4 ML SYRINGE SUBCUT (15:59)
--- NOTE | 2023-03-30 16:18 | PM.PNNEP ---
Subjective Subjective Date of Service: 03/31/23 Interval history: Seen and examined, events noted Physical Exam Vital Signs: Vital Signs: Last Vital Signs Temp 97.5 F 03/30/23 15:55 Pulse 104 H 03/30/23 15:55 Resp 18 03/30/23 15:55 BP 126/80 03/30/23 15:55 Pulse Ox 94 03/30/23 15:55 O2 Del Method Room Air 03/30/23 15:55 O2 Flow Rate 2 03/29/23 02:04 BMI result Body Mass Index 27.4 Const: General: no acute distress HEENT: Mouth: Normal oral and palatal mucosa present Eyes: EOM: EOMs intact bilaterally Neck: Neck: Yes supple Resp: Auscultation: diminished lung sounds Cardio: Rate: regular rate GI: Palpation (GI): Soft to palpation Skin: General skin exam: no rashes or lesions noted Neuro: General: moves all extremities Objective Data Labs 03/28/23 07:45 03/30/23 06:49 Labs: Laboratory Results - last 24 hr 03/29/23 03/29/23 03/29/23 18:58 18:59 19:53 Sodium 128 L Potassium Chloride Carbon Dioxide Anion Gap BUN Creatinine Estim Creat Clear Calc Estimated GFR Random Glucose Calcium B-Natriuretic Peptide 871 H Urine Osmolality 779 Ur Random Sodium 03/29/23 03/29/23 03/30/23 19:53 21:56 06:49 Sodium 129 L 128 L Potassium 4.4 3.8 Chloride 96 95 L Carbon Dioxide 23 23 Anion Gap 14 14 BUN 38 H Creatinine 0.76 Estim Creat Clear Calc 118.7 Estimated GFR > 60 Random Glucose 102 Calcium 8.7 B-Natriuretic Peptide Urine Osmolality Ur Random Sodium < 20.0 Microbiology Microbiology Results: Microbiology 03/28/23 12:14 Blood - Venous Blood Culture - Preliminary No growth after 48 hours. 03/28/23 12:14 Blood - Venous Blood Culture - Preliminary No growth after 48 hours. Procedures Date of Service Date of Service: 03/31/23 Assessment & Plan Assessment and plan (1) Atypical pneumonia: Status: Acute (2) Acute hyponatremia: Status: Acute Plan HypoNatremia and initial thought to be euvolemic but now w/u revelas signif card dysfuc and now clinically most c/w Card dysfunc asoc non-osmotic incr ADH release as this is supported by the Urine Na and osm pattern BUT typically these PT havelow BPs and evid of periph edema and/orCHF With GDMT Tx and use of loop diuretcis--- this may help renal perfusion and decr non-osm ADh and incr SNa. REC: Urea 15 gm bid; start loop diuretic and trrack SNa q 12 hrs;will consider tolvapatan ( no on formualry) Time Spent With Patient Time: Total time managing care of this patient today ____ minutes. Progress Note: Quality Stroke Does the patient have a stroke diagnosis?: No
[2023-03-30 18:37] LABS: Sodium 133 mmol/L (135-145)
[2023-03-30 19:20] VITALS: BP 119/76; PULSE 115; RESP 16; TEMP 36.3; O2SAT 97
[2023-03-30] MEDS: Gabapentin 100 MG CAPSULE 200 MG PO (20:27)
[2023-03-30 22:17] LABS: Sodium 133 mmol/L (135-145)
[2023-03-31] MEDS: 0.9 % Sodium Chloride Flush 3 ML SYRINGE IVFLUSH ×4 (00:11→19:18)
[2023-03-31 04:00] VITALS: BP 116/77; PULSE 102; RESP 16; TEMP 36.6; O2SAT 96
[2023-03-31 06:38] LABS: Anion Gap 13 (12-20); Blood Urea Nitrogen 16 mg/dL (9-16); Calcium 8.7 mg/dL (8.4-10.2); Carbon Dioxide 23 mmol/L (22-29); Chloride 103 mmol/L (96-108); Creatinine Clr Calc Pharmacy 121.9; Estimated Glomerular Filt Rate > 60; Glucose Random 91 mg/dL (60-115); Potassium 3.5 mmol/L (3.3-5.1); Sodium 135 mmol/L (135-145)
[2023-03-31 08:00] VITALS: BP 126/75; PULSE 95; RESP 20; TEMP 36.6; O2SAT 97
[2023-03-31] MEDS: Furosemide 20 MG/2 ML VIAL IVPUSH ×2 (09:01→17:12)
[2023-03-31] MEDS: Docusate Sodium 100 MG CAPSULE PO (09:01)
[2023-03-31] MEDS: Sacubitril/Valsartan 24/26 1 TAB TABLET PO ×2 (09:01→20:06)
[2023-03-31] MEDS: Spironolactone 25 MG TABLET 12.5 MG PO (09:02)
[2023-03-31] MEDS: Gabapentin 100 MG CAPSULE PO ×2 (09:02→15:13)
[2023-03-31] MEDS: Lidocaine 4 % Patch ADH..PATCH 2 PATCH TRANSDERMA (09:05)
--- NOTE | 2023-03-31 12:03 | P.PNCA_ITS ---
Subjective Subjective Date of Service: 03/31/23 Principal diagnosis: Decompensated congestive heart failure Interval history: Patient is doing a lot better compared to yesterday. Has diuresed about 4 L. Breathing a lot better aspirin. Blood pressures improved. Tolerating his medications. Sodium is improved significantly. Heart rate still remains and 110-15. He is anxious but much better than yesterday. Back pain is improved. Review of Systems Constitutional: Reports no additional constitutional complaints Eyes: Reports no additional eye complaints Cardiovascular: Denies chest pain, Reports rapid heart rate, Denies leg edema, Denies lightheadedness, Denies Loss of Consciousness and Reports dyspnea (Significantly improved) Respiratory: Reports dyspnea (Significantly improved) Reports system reviewed and no additional complaints, except as documented Psychiatric: Reports anxiety Physical Exam Vital Signs: Last Vital Signs Temp 97.9 F 03/31/23 08:00 Pulse 95 03/31/23 08:00 Resp 20 03/31/23 08:00 BP 126/75 03/31/23 08:00 Pulse Ox 97 03/31/23 08:00 O2 Del Method Room Air 03/31/23 08:00 O2 Flow Rate 2 03/29/23 02:04 BMI result Body Mass Index 27.4 Const General: no acute distress HEENT Mouth: Normal oral and palatal mucosa present Eyes EOM: EOMs intact bilaterally Neck Neck: Yes trachea midline, Yes supple and Yes no JVD Resp Auscultation: diminished lung sounds Cardio Jugular venous distension: no JVD Palpation: abnormal PMI displaced PMI Rate: tachycardic Rhythm: regular rhythm Heart sounds: S1 normal heart sound present, S2 normal heart sound present, no click, no gallops and no murmurs GI Palpation (GI): Soft to palpation Skin General skin exam: no rashes or lesions noted Neuro General: moves all extremities Objective Labs and Meds 03/28/23 07:45 03/31/23 05:33 Lab results: Laboratory Results - last 24 hr 03/30/23 03/30/23 03/31/23 18:10 22:00 05:33 Sodium 133 L 133 L 135 Potassium 3.5 Chloride 103 Carbon Dioxide 23 Anion Gap 13 BUN 16 Creatinine 0.74 Estim Creat Clear Calc 121.9 Estimated GFR > 60 Random Glucose 91 Calcium 8.7 Progress Note: A&P Assessment and plan (1) Heart failure, systolic, with acute decompensation: Status: Acute Assessment and Plan: Heart failure with severe LV systolic dysfunction, new onset heart failure. Cause for cardiomyopathy is not known. Still will require ischemic workup. Will perform cardiac catheterization as outpatient. However he has done remarkably well since diuretics with much improved heart rate as well as breathi ng as well as his sodium levels. Continue IV diuresis for 1 more day. Strict intake and output chart needs to be pursued. Add Jardiance 10 mg to his regimen and add Coreg 3.125 mg b.i.d. to his regimen. Continue Aldactone therapy. Continue to monitor renal function electrolytes. If potassium remains below for should add potassium supplement to his regimen. Heart failure education to be provided. Ambulate as tolerated. Repeat labs tomorrow. Will sign of the case and follow with him as outpatient. Thank you for allowing me to partake in his care Time Spent With Patient Time: Total time managing care of this patient today ____ minutes. Progress Note: Quality Stroke Does the patient have a stroke diagnosis?: No Procedures Date of Service Date of Service: 03/31/23
[2023-03-31] MEDS: carvediloL 3.125 MG TABLET PO ×2 (12:19→20:06)
[2023-03-31] MEDS: Empagliflozin 10 MG TABLET PO (12:19)
--- NOTE | 2023-03-31 12:28 | P.PNIM_ITS ---
Subjective Subjective Date of Service: 03/31/23 Interval History: seen and examined this morning follow up for acute chf feeling better today, breathing easier, less back/rib pain no palpitations Review of Systems Review of Systems: Yes all other systems are reviewed and are negative Constitutional Constitutional: Denies chills and Denies fever(s) ENT Ears, Nose, Mouth, and Throat: Denies dizziness Cardiovascular Cardiovascular: Denies chest pain, Denies palpitations and Denies dyspnea Respiratory Respiratory: Denies cough and Denies dyspnea Gastrointestinal Gastrointestinal: Denies abdominal pain Neurologic Neurologic: Denies dizziness Endocrine Endocrine: Denies palpitations Physical Exam Vital Signs: Vital Signs: Last Vital Signs Temp 97.9 F 03/31/23 08:00 Pulse 95 03/31/23 08:00 Resp 20 03/31/23 08:00 BP 126/75 03/31/23 08:00 Pulse Ox 97 03/31/23 08:00 O2 Del Method Room Air 03/31/23 08:00 O2 Flow Rate 2 03/29/23 02:04 BMI result Body Mass Index 27.4 Const: General: cooperative, comfortable, no acute distress, alert and awake Nutritional Appearance: average body habitus Orientation/consciousness: patient oriented x3 Resp: Effort & Inspection: normal respiratory effort, able to speak in complete sentences, no respiratory distress and no use of accessory muscles Auscultation: clear to auscultation bilaterally Cardio: Rate: tachycardic Heart sounds: S1 normal heart sound present, S2 normal heart sound present and no murmurs GI: Inspection: No distended Palpation (GI): Soft to palpation and nontender Neuro: General: patient oriented x3, moves all extremities and CN's II-XI intact bilaterally Extrem: General: Yes no pedal edema Psych: Appearance: well kempt Affect: normal affect Objective Data Active Medications Acetaminophen (Acetaminophen 325 Mg Tablet) 650 mg PO Q6H PRN PRN Reason: Pain, Mild (Pain Scale 1-3) Last Admin: 03/28/23 23:39 Dose: 650 mg Documented By: LEIGH ANN Bisacodyl (Bisacodyl 5 Mg Tablet.) 5 mg PO DAILY PRN PRN Reason: Constipation Carvedilol (Carvedilol 3.125 Mg Tablet) 3.125 mg PO BID NIELS; Protocol Last Admin: 03/31/23 12:19 Dose: 3.125 mg Documented By: MASSIEL Docusate Sodium (Docusate Sodium 100 Mg Capsule) 100 mg PO DAILY [facility] Last Admin: 03/31/23 09:01 Dose: 100 mg Documented By: MASSIEL Empagliflozin (Empagliflozin 10 Mg Tablet) 10 mg PO DAILY [facility] Last Admin: 03/31/23 12:19 Dose: 10 mg Documented By: MASSIEL Enoxaparin Sodium (Enoxaparin Sodium 40 Mg/0.4 Ml Syringe) 40 mg SUBCUT Q24H [facility] Last Admin: 03/30/23 15:59 Dose: 40 mg Documented By: MASSIEL Furosemide (Furosemide 20 Mg/2 Ml Vial) 20 mg IVPUSH BID@0900,1800 [facility]; Protocol Last Admin: 03/31/23 09:01 Dose: 20 mg Documented By: MASSIEL Gabapentin (Gabapentin 100 Mg Capsule) 200 mg PO BEDTIME [facility] Last Admin: 03/30/23 20:27 Dose: 200 mg Documented By: FRANCISCO Gabapentin (Gabapentin 100 Mg Capsule) 100 mg PO BID@0900,1500 [facility] Last Admin: 03/31/23 09:02 Dose: 100 mg Documented By: MASSIEL Lidocaine (Lidocaine 4 % Patch Adh..Patch) 2 patch TRANSDERMA DAILY PRN; Prot ocol PRN Reason: Back Pain Last Admin: 03/31/23 09:05 Dose: 2 patch Documented By: MASSIEL Morphine Sulfate (Morphine Sulfate 2 Mg/Ml Cartridge) 2 mg IVPUSH Q4H PRN; Protocol PRN Reason: Pain, Severe (Pain Scale 7-10) Last Admin: 03/29/23 21:41 Dose: 2 mg Documented By: MOO Pt Own(Elviteg-Cob- Emtri-Tenof Alafen [ Genvoya] 150-150-200 -10 Mg Table 1 tab PO DAILY@1730 [facility] Last Admin: 03/30/23 17:13 Dose: 1 tab Documented By: MASSIEL Ondansetron HCl (Ondansetron Hcl 4 Mg/2 Ml Vial) 4 mg IVPUSH Q8H PRN PRN Reason: Nausea and Vomiting Last Admin: 03/29/23 01:51 Dose: 4 mg Documented By: LEIGH ANN Pharmacy Consult (Consult Rx Perform Med Rec) 1 each MISCELLANE ONCE PRN PRN Reason: Consult order Sacubitril/Valsartan (Sacubitril/Valsartan 1 Tab Tablet) 1 tab PO BID [facility]; Protocol Last Admin: 03/31/23 09:01 Dose: 1 tab Documented By: MASSIEL Sodium Chloride (0.9 % Sodium Chloride Flush 3 Ml Syringe) 3 ml IVFLUSH QSHIFT [facility] Last Admin: 03/31/23 09:01 Dose: 3 ml Documented By: MASSIEL Spironolactone (Spironolactone 25 Mg Tablet) 12.5 mg PO DAILY [facility]; Protocol Last Admin: 03/31/23 09:02 Dose: 12.5 mg Documented By: MASSIEL Tramadol HCl (Tramadol Hcl 50 Mg Tablet) 50 mg PO Q6H PRN PRN Reason: Pain, Moderate(Pain Scale 4-6) Trazodone HCl (Trazodone Hcl 25 Mg Halftab) 25 mg PO BEDTIME MRX1 PRN PRN Reason: Sleep Labs 03/28/23 07:45 03/31/23 05:33 Labs: Laboratory Results - last 24 hr 03/31/23 05:33 Anion Gap 13 Estim Creat Clear Calc 121.9 Estimated GFR > 60 Random Glucose 91 Calcium 8.7 Microbiology Microbiology Results: Microbiology 03/28/23 12:14 Blood Culture - Preliminary Blood - Venous No growth after 48 hours. 03/28/23 12:14 Blood Culture - Preliminary Blood - Venous No growth after 48 hours. Assessment and Plan (1) Heart failure, systolic, with acute decompensation: Status: Acute (2) Acute hyponatremia: Status: Acute Plan This is a 52-year-old male with history of HIV presents to the emergency department with several days of cough, shortness of breath, chills, diarrhea, headache found to have pneumonia and hyponatremia Shortness of breath initially thought to be related to sepsis from CAP given initial CXR however chest CT showed no evidence of pneumonia, but rather evidence of CHF RPP negative, lactic acid negative and procalcitonin low at 0.03 sepsis/pneumonia ruled out will d/c IV abx acute decompensated CHF with reduced EF chest CT showing mild chf with b/l pleural effusions BNP 871 ECHO with dilated left ventricle and severely reduced LVEF 15-20% severe global hypokinesis started on IV lasix with good effect -4L started on enresto, aldactone plan to start coreg and jardiance continue IV lasix 20 bid for one more day continue strict Is&Os continue 2L fuid restriction goal to keep K >4. today k 3.5, will give one time dose of potassium cardiology following, etiology of cardiomyopathy unclear, will need further work up as outpatient hyponatremia, likely acute initially treated with urea and gentle IVF, now on lasix for CHF and sodium has returned to normal TSH wnl likely r/t CHF d/c urea nephrology following diarrhea no further episodes of diarrhea C diff, GI panel negative HIV reportedly with T4 count >1000, viral load 0 Continue genvoya chronic back pain has been unable to tolerate tylenol or oxycodone continue gabapentin (will increase bedtime dose to 200 mg), lidoderm patch continue prn morphine for severe pain has been on ultram in past, would like to try for less severe pain avoid NSAIDs given CHF DVT prophylaxis-Lovenox Code status-full code Attending-Dr. Willis patient requires ongoing inpatient stay for management of acute decompensated heart failure Time Spent With Patient Time: Total time managing care of this patient today ____ minutes. Quality Stroke Does the patient have a stroke diagnosis?: No VTE Prior VTE?: No VTE Risk Level:: Medical - moderate - high VTE Device Contraindication: N/A - Device Ordered VTE Drug Contraindication: N/A - Med Ordered
[2023-03-31] MEDS: Potassium Chloride ER 20 MEQ TAB.ER.PRT PO (13:43)
[2023-03-31] MEDS: Enoxaparin Sodium 40 MG/0.4 ML SYRINGE SUBCUT (15:13)
[2023-03-31 16:20] VITALS: BP 128/45; PULSE 95; RESP 20; TEMP 37.2; O2SAT 100
--- NOTE | 2023-03-31 18:45 | PM.PNNEP ---
Subjective Subjective Date of Service: 03/31/23 Principal diagnosis: Decompensated congestive heart failure Interval history: Seen and examined, events noted Physical Exam Vital Signs: Vital Signs: Last Vital Signs Temp 98.9 F 03/31/23 16:20 Pulse 95 03/31/23 16:20 Resp 20 03/31/23 16:20 BP 128/45 L 03/31/23 16:20 Pulse Ox 100 03/31/23 16:20 O2 Del Method Room Air 03/31/23 16:20 O2 Flow Rate 2 03/29/23 02:04 BMI result Body Mass Index 27.4 Const: General: no acute distress HEENT: Mouth: Normal oral and palatal mucosa present Eyes: EOM: EOMs intact bilaterally Neck: Neck: Yes supple Resp: Auscultation: diminished lung sounds Cardio: Rate: regular rate GI: Palpation (GI): Soft to palpation Skin: General skin exam: no rashes or lesions noted Neuro: General: moves all extremities Objective Data Labs 03/28/23 07:45 03/31/23 05:33 Labs: Laboratory Results - last 24 hr 03/30/23 03/31/23 22:00 05:33 Sodium 133 L 135 Potassium 3.5 Chloride 103 Carbon Dioxide 23 Anion Gap 13 BUN 16 Creatinine 0.74 Estim Creat Clear Calc 121.9 Estimated GFR > 60 Random Glucose 91 Calcium 8.7 Microbiology Microbiology Results: Microbiology 03/28/23 12:14 Blood - Venous Blood Culture - Preliminary No growth after 48 hours. 03/28/23 12:14 Blood - Venous Blood Culture - Preliminary No growth after 48 hours. Procedures Date of Service Date of Service: 03/31/23 Assessment & Plan Assessment and plan (1) Atypical pneumonia: Status: Acute (2) Acute hyponatremia: Status: Acute Plan HypoNatremia and initial thought to be euvolemic but now w/u revelas signif card dysfuc and now clinically most c/w Card dysfunc asoc non-osmotic incr ADH release as this is supported by the Urine Na and osm pattern BUT typically these PT havelow BPs and evid of periph edema and/orCHF Sna improved with loop diruretic Cont With GDMT Tx REC: d/c Urea; cont loop diuretic and trrack SNa q 24 hrs Time Spent With Patient Time: Total time managing care of this patient today ____ minutes. Progress Note: Quality Stroke Does the patient have a stroke diagnosis?: No
[2023-03-31 19:24] VITALS: BP 127/86; PULSE 113; RESP 18; TEMP 36.2; O2SAT 98
[2023-03-31] MEDS: Gabapentin 100 MG CAPSULE 200 MG PO (20:06)
[2023-03-31] MEDS: Morphine Sulfate 2 MG/ML CARTRIDGE IVPUSH (22:28)
[2023-04-01 03:50] VITALS: BP 123/88; PULSE 101; RESP 16; TEMP 36.1; O2SAT 98
[2023-04-01 06:20] LABS: B Type Natriuretic Peptide 812 pg/mL (<100)
[2023-04-01 06:29] LABS: Anion Gap 12 (12-20); Blood Urea Nitrogen 17 mg/dL (9-16); Carbon Dioxide 25 mmol/L (22-29); Chloride 102 mmol/L (96-108); Creatinine Clr Calc Pharmacy 106.1; Estimated Glomerular Filt Rate > 60; Glucose Random 93 mg/dL (60-115); Potassium 3.8 mmol/L (3.3-5.1); Sodium 135 mmol/L (135-145)
[2023-04-01 07:39] VITALS: BP 113/78; PULSE 115; RESP 18; O2SAT 99
[2023-04-01 07:49] VITALS: BP 135/95; PULSE 69; RESP 16; TEMP 36.2; O2SAT 95
[2023-04-01] MEDS: Docusate Sodium 100 MG CAPSULE PO (08:05)
[2023-04-01] MEDS: Sacubitril/Valsartan 24/26 1 TAB TABLET PO (08:05)
[2023-04-01] MEDS: Spironolactone 25 MG TABLET 12.5 MG PO (08:05)
[2023-04-01] MEDS: carvediloL 3.125 MG TABLET PO (08:05)
[2023-04-01] MEDS: 0.9 % Sodium Chloride Flush 3 ML SYRINGE IVFLUSH (08:06)
[2023-04-01] MEDS: Gabapentin 100 MG CAPSULE PO (08:06)
[2023-04-01] MEDS: Furosemide 20 MG/2 ML VIAL IVPUSH ×2 (08:06→13:24)
[2023-04-01] MEDS: Empagliflozin 10 MG TABLET PO (08:06)
--- NOTE | 2023-04-01 12:54 | PM.DS ---
DS: Providers Provider Date of Service: 04/01/23 Date of admission: 03/28/23 15:25 Primary care physician: Unknown Physician Consults: 03/28/23 11:35 Consult to Nephrology Stat Consulting Provider: Leon [place] Reason for consultation: Atypical pneumonia, hyponatremia Has provider been notified: Yes 03/29/23 07:23 Consult to Nephrology Routine Consulting Provider: [facility] Reason for consultation: hyponatremia Has provider been notified: No 03/29/23 16:57 Consult to Cardiology Routine Consulting Provider: [facility] Reason for consultation: chest pain, tachycardia, pleural effusions ?cardiomyopathy; low EF Has provider been notified: No DS: Diagnosis Discharge Diagnosis (1) Atypical pneumonia: Status: Acute (2) Acute hyponatremia: Status: Acute DS: Summary Hospital Course Hospital Course: This is a 52-year-old male with history of HIV who presents to the emergency department with several days of shortness of breath.? Patient reports sore throat, headache, nonproductive cough, chills and multiple days of non-bloody diarrhea.? He denies any recent sick contacts or recent travel. He has had decreased po intake. He also reports some back pain.? In the emergency department lab work was significant for hyponatremia with a sodium of 124.? Chest x-ray revealed patchy scattered airspace opacities suggestive of infectious etiology.? He was treated with IV ceftriaxone and azithromycin.? For hyponatremia he received 1 L of IV normal saline.? The case was discussed with Nephrology on-call who recommended fluid restriction.? He received multiple doses of IV narcotics for control of back pain and the decision was made to admit him to the hospital for further management. Acute decompensated CHF with reduced EF chest CT showing mild chf with b/l pleural effusions BNP 871 ECHO with dilated left ventricle and severely reduced LVEF 15-20% severe global hypokinesis treated with IV lasix with good effect -4L started on enresto, aldactone, coreg and jardiance continue lasix 20mg BID follow up with cardiology for further o/p workup hyponatremia, initially treated with urea and gentle IVF, lasix for CHF and sodium has returned to normal. TSH wnl. evaluated by nephrology diarrhea no further episodes of diarrhea C diff, GI panel negative HIV reportedly with T4 count >1000, viral load 0 Continue genvoya chronic back pain continue home medications Time Spent with Patient Time attestation: Total time managing care of this patient today ____ minutes. Discharge coordination time: Greater than 30 minutes Quality: Safe Use of Opioids Does Pt have an Active Cancer Diagnosis on the Problem List?: No Quality: Stroke Does the patient have a stroke diagnosis?: No Physical Exam Vital Signs: Vital Signs: Last Vital Signs Temp 97.1 F 04/01/23 07:49 Pulse 69 04/01/23 07:49 Resp 16 04/01/23 07:49 BP 135/95 H 04/01/23 07:49 Pulse Ox 95 04/01/23 07:49 O2 Del Method Room Air 04/01/23 07:49 O2 Flow Rate 2 03/29/23 02:04 BMI result Body Mass Index 27.4 Appearing in no acute distress head is normocephalic atraumatic eyes pupils are PERRLA sclera is anicteric mouth throat mucous membranes are intact and moist neck is supple no lymphadenopathy, no JVD noted lung sounds are clear to auscultation heart regular rate rhythm, clear S1, S2 positive bowel sounds, abdomen is soft, nontender neuro patient is alert x3, no focal deficits DS: Data Data Completed and Pending Labs on day of discharge: Laboratory Results - last 24 hr 04/01/23 04/01/23 05:38 05:38 Sodium 135 Potassium 3.8 Chloride 102 Carbon Dioxide 25 Anion Gap 12 BUN 17 H Creatinine 0.85 Estim Creat Clear Calc 106.1 Estimated GFR > 60 Random Glucose 93 Calcium 9.0 B-Natriuretic Peptide 812 H Preliminary micro results at discharge 03/28/23 12:14 Blood Culture - Preliminary Blood - Venous No growth after 48 hours. 03/28/23 12:14 Blood Culture - Preliminary Blood - Venous No growth after 48 hours. Discharge Plan Discharge Anticipated Discharge Date/Time: 04/01/23 12:50 Patient Disposition: Home, Self-Care Discharge Diagnosis: cardiomyopathy Acute decompensated failure with reduced ejection fraction Hyponatremia Diarrhea Referrals: Jose Alfredo Greer MD [Physician] - 1 Week Discharge Medications: New spironolactone 25 mg Tablet 12.5 mg PO DAILY Qty: 30 0RF Protocol: Hold for SBP< HOLD for SBP < : 90 carvedilol 3.125 mg Tablet 3.125 mg PO BID Qty: 60 0RF Protocol: Hold for SBP/HR < HOLD for SBP < : 90 HOLD for HR < : 60 Jardiance 10 mg Tablet 10 mg PO DAILY Qty: 30 0RF Entresto 24-26 mg Tablet 1 tab PO BID Qty: 60 0RF Protocol: Hold for SBP< HOLD for SBP < : 90 furosemide 20 mg tablet 20 mg PO BID Qty: 60 0RF Continued lidocaine 4 % Adhesive Patch,Medicated 2 patch TOPICAL DAILY PRN (Reason: Back Pain) Rx Instructions: APPLY ONE PATCH LOWER BACK AND ONE PATCH AT UPPER BACK ibuprofen 800 mg Tablet 800 mg PO Q8H docusate sodium 100 mg Capsule 100 mg PO DAILY gabapentin 100 mg Capsule 100 mg PO TID Genvoya [phone] mg Tablet 1 tab PO DAILY Rx Instructions: must administer with a meal/food loperamide 2 mg Tablet 2 mg PO BID PRN (Reason: Diarrhea) Rx Instructions: administer after each loose stool until symptoms controlled; do not exceed 8 mg per 24 hrs Discharge Orders: Discharge Order (Routine); Ordered 04/01/23 Ordered By: Stacia Hanson Diet: Advance to usual diet Activity on Discharge: As tolerated Stand Alone Forms: Patient Portal Discharge page, Work/School Release Care Plan Goals: Complete resolution of symptoms Health Concerns: cardiomyopathy Acute decompensated failure with reduced ejection fraction Hyponatremia Diarrhea Plan of Treatment: Follow-up with primary care provider as needed Follow-up with baby counselor for complete outpatient cardiac workup Take all medications as prescribed Assessment: See discharge summary Discharge Date/Time: 04/01/23 14:16
--- NOTE | 2023-04-01 13:05 | MHC.CM.PN ---
pt dcd home no skilled servceis are indicated
--- NOTE | 2023-04-01 13:13 | PM.PNCARD ---
Subjective Subjective Date of Service: 04/01/23 Principal diagnosis: Decompensated congestive heart failure Interval history: Seen examined at bedside. He is saying that he is feeling much better. Ambulating and has no significant dyspnea at this point. Physical Exam Vital Signs: Last Vital Signs Temp 97.1 F 04/01/23 07:49 Pulse 69 04/01/23 07:49 Resp 16 04/01/23 07:49 BP 135/95 H 04/01/23 07:49 Pulse Ox 95 04/01/23 07:49 O2 Del Method Room Air 04/01/23 07:49 O2 Flow Rate 2 03/29/23 02:04 BMI result Body Mass Index 27.4 GENERAL APPEARANCE: in no acute distress, pleasant. NECK: no carotid bruit, no jugular venous distention. Positive hepatic jugular reflux. SKIN: no suspicious lesions, warm and dry. HEART: no murmurs, regular rate and rhythm. S3 gallop. LUNGS: clear to auscultation bilaterally. ABDOMEN: soft, nontender. EXTREMITIES: no edema. PERIPHERAL PULSES: equal. NEUROLOGIC: No gross deficits, AAO X 3 Objective Labs and Meds 03/28/23 07:45 04/01/23 05:38 Lab results: Laboratory Results - last 24 hr 04/01/23 04/01/23 05:38 05:38 Sodium 135 Potassium 3.8 Chloride 102 Carbon Dioxide 25 Anion Gap 12 BUN 17 H Creatinine 0.85 Estim Creat Clear Calc 106.1 Estimated GFR > 60 Random Glucose 93 Calcium 9.0 B-Natriuretic Peptide 812 H Progress Note: A&P Assessment and plan (1) Heart failure, systolic, with acute decompensation: Status: Acute Plan Pleasant 52 year gentleman presenting with new onset congestive heart failure with severe cardiomyopathy. He has done well with diuretics and guideline directed medical therapy. He should get his 2nd dose of IV diuretics today. Okay to be discharged home on current medication regimen. He was advised to monitor his weight daily and if there is any weight gain of more than 2 lb he should reach out to us. He will need ischemic evaluation as outpatient. He will follow-up with Dr. Greer. Thank you for allowing me to participate in the care of your patient. Please feel free to contact me if you have any questions. Time Spent With Patient Time: Total time managing care of this patient today ____ minutes. Progress Note: Quality Stroke Does the patient have a stroke diagnosis?: No Procedures Date of Service Date of Service: 04/01/23
[2023-04-03 04:05] LABS: Legionella Ag Urine Not Detected (Not Detected)
[2023-04-03 22:38] LABS: Strep Pneumo Ag urine Not Detected (Not Detected)
== END 2023-04-01 14:16 | disposition home or self-care (01) | DRG 292 ==
LOC: HO.ED 16:03 → HO.EDOVER 16:38 → HO.S3 16:49
PROVIDERS: Internal Medicine; Internal Medicine Nephrology; Student in an Organized Health Care Education/Training Program; Admitting Provider Physician Assistant Medical; Emergency Provider Emergency Medicine Emergency Medical Services; Visit Provider Nurse Practitioner Acute Care
DX: I50.21 Acute systolic (congestive) heart failure (principal); E87.1 Hypo-osmolality and hyponatremia; G89.29 Other chronic pain; M54.9 Dorsalgia, unspecified; Z21 Asymptomatic human immunodeficiency virus [HIV] infection status; Z20.822 Contact with and (suspected) exposure to COVID-19; Z88.2 Allergy status to sulfonamides; Z79.899 Other long term (current) drug therapy
CPT/HCPCS: 36415; 70450; 71046; 71250; 80048; 80051; 80053; 81001; 81003; 83605; 83690; 83880; 83930; 83935; 84145; 84295; 84300; 84443; 84484; 84550; 84560; 85025; 85610; 85730; 87040; 87449; 87493; 87502; 87507; 87633; 87635; 87651; 87899; 93005; 93306; 99285; J0456; J0696; J1200; J1650; J1940; J2270; J2405; J2765; Q9957

== ENCOUNTER → 2023-04-09 12:54 | Outpatient (BNVA) | payer OTHER, SELFPAY | PROVIDERS: Visit Provider Nurse Practitioner Family | DX: I50.20 Unspecified systolic (congestive) heart failure (principal); I42.9 Cardiomyopathy, unspecified | CPT/HCPCS: 93005 ==

== ENCOUNTER 2023-05-06 14:17 | Outpatient (AMB) | payer OTHER, SELFPAY ==
[2023-05-06 14:27] VITALS: PULSE 109; BMI 25.0
--- NOTE | 2023-05-06 14:27 | MHC.OFFVIS ---
Intake Vital Signs 05/06/23 14:27 Height 5 ft 10 in Weight 174 lb 2.643 oz BMI 25.0 Pulse 109 H Intake Visit Reasons: follow up Intake Note: f/u Chocolate Dipper Required: No Allergies Sulfa (Sulfonamide Antibiotics) Allergy (Verified 05/06/23 14:41) Unknown Medication List - Last Reconciled 05/06/23 by SAI ValleC atorvastatin 20 mg PO DAILY carvedilol 6.25 mg PO BID 90 days cetirizine (Zyrtec) 10 mg PO DAILY PRN docusate sodium 100 mg PO DAILY [place]-eua-mchpn-tenof alafen [phone] mg (Genvoya) 1 tab PO DAILY empagliflozin (Jardiance) 10 mg PO DAILY furosemide 20 mg PO BID 90 days gabapentin 100 mg PO TID ibuprofen 800 mg PO Q8H lidocaine 4% 2 patches topical DAILY PRN loperamide 2 mg PO BID PRN sacubitril-valsartan 24-26 mg (Entresto) 1 tab See Protocol PO BID 90 days spironolactone 12.5 mg See Protocol PO DAILY 90 days HPI follow up HPI Details Nico is a 53-year-old male past medical history of HIV who was recently admitted to [facility] with shortness of breath and found to have heart failure with reduced EF, EF 15-20%.? He was diuresed and started on goal-directed medical therapy.? He was discharged with Lasix 20 mg b.i.d.. He then underwent cardiac catheterization showing significant 3 vessel CAD Now presents for follow-up. Today he reports that he generally feels well. He has no chest discomfort at rest or with activity. He denies shortness of breath with activity but does state at work when it is hot it is bothersome for him. 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 He says sometimes the fans are removed from his areas and the temperature goes very high. He has no presyncope, syncope, falls. No PND, orthopnea or edema. His right radial catheterization site is feeling well. He is taking his medications as directed.. [facility] Medical History (Updated 05/06/23 @ 17:07 by SAI ValleC) HIV (human immunodeficiency virus infection) Surgical History (Updated 05/06/23 @ 17:22 by GERMÁN Valle) S/P cardiac catheterization Social History Household Members: Significant Other Housing: House Do you presently have visiting nurse or other home services: No Alcohol intake: never Patient Tobacco Use Status: Never used Tobacco service: No Review of Systems Const Details: As above All systems reviewed & are unremarkable except as noted in HPI and below ENT Reports dizziness Card Denies chest pain, Denies chest pain at rest, Denies chest pain with activity, Denies rapid heart rate, Denies pedal edema, Denies edema, Denies leg edema, Denies lightheadedness, Denies palpitations, Denies dyspnea, Denies dyspnea on exertion and Denies orthopnea Resp Denies cough, Denies dyspnea and Denies dyspnea on exertion GI Denies hematochezia and Denies change in stool character Musc Denies abnormal gait, Reports limited range of motion, Reports muscle cramps, Denies muscle weakness, Denies numbness, Denies radiating pain into limb, Denies stiffness and Denies tingling Neuro Denies abnormal gait, Reports dizziness, Denies numbness and Denies tingling Endo Denies palpitations Physical Exam Vital Signs: Last Vital Signs Pulse 109 H 05/06/23 14:27 BMI result Body Mass Index 25.0 Const General: cooperative, healthy appearing, comfortable and no acute distress Orientation/consciousness: patient oriented x3 Neck Neck: Yes normal visual inspection Resp Effort & Inspection: normal respiratory effort Auscultation: clear to auscultation bilaterally, no crackles, no rales, no rhonchi and no wheezes Cardio Jugular venous distension: no JVD Rate: regular rate Rhythm: regular rhythm Heart sounds: S1 normal heart sound present, S2 normal heart sound present, no murmurs and no rubs GI Inspection: Yes normal to inspection Neuro General: patient oriented x3 Extrem Other: Right radial catheterization site well healed. Easily palpable radial pulse and hand assessment normal General: Yes normal to inspection Psych Appearance: grossly normal Mental Status: mental status grossly normal Speech and movement: Normal speech and movement present Office Procedures EKG Details: Today, read by me, sinus tach, possible inferior infarct, age undetermined, anterior septal infarct, Q-waves V1 through V 3, rate 109, manual QTC 377 milliseconds [id number], Complete Assessment & Plan Assessment & Plan (1) HFrEF (heart failure with reduced ejection fraction): Code(s): I50.20 - Unspecified systolic (congestive) heart failure Plan: Recent [facility] admission for shortness of breath. BNP elevated at 871, echocardiogram showed EF 15-20%, moderate to severe MR. He was diuresed 4 L. started on Entresto, Aldactone, carvedilol, Jardiance and discharged with Lasix 20 mg b.i.d.. Today he reports he has continued to feel well with normal breathing. He does report when the temperature is very hot at work it is uncomfortable for him and harder to breathe at that time. he has no clinical signs indicating decompensated heart failure. He is noted to be Mildly tachycardic. EKG done today shows SR, rate 109. On last visit his carvedilol dose was increased. At present blood pressure is running low at 108/62. Last labs done on 04/01/23 showed potassium 3.8, creatinine 0.85. He tells me he is drinking large volumes of fluid while at work due to the heat. Reviewed drinking less than 64 oz daily, ideally 48 oz. Signs and symptoms of heart failure reviewed. Continue all other meds without changes. (2) Cardiomyopathy: Code(s): I42.9 - Cardiomyopathy, unspecified Plan: New finding of cardiomyopathy as above. he underwent diagnostic cardiac catheterization on 04/22/2023 showing significant 3 vessel coronary artery disease with 100% CONTINUOUS PROCESS ROTARY DRUM TANNER of the LAD and distal RCA, proximal circumflex 80% stenosis, 1st diagonal 70% stenosis. plan is for cardiac MRI to evaluate for myocardial viability. unable to perform a nuclear scan as the nuclear isotope is not available. All the above reviewed with him and he does state understanding. He is aware of the need of probable future coronary artery bypass grafting. His EF is known to be low at 15-20%. He wants to continue working at present time. Instructed on only light physical activity as tolerated. Will arrange for LifeVest use. (3) S/P cardiac catheterization: Comment: 04/22/2023 lad 100% CONTINUOUS PROCESS ROTARY DRUM TANNER, 1st diagonal 70% stenosis, left circumflex proximal 80% stenosis, RCA distal 100% CONTINUOUS PROCESS ROTARY DRUM TANNER Code(s): Z98.890 - Other specified postprocedural states Plan: Right radial catheterization site well healed (4) Coronary atherosclerosis: Code(s): I25.10 - Atherosclerotic heart disease of [place] coronary artery without angina pectoris Plan: as above. will start him on aspirin 81 mg daily. Continue atorvastatin, carvedilol. Signs and symptoms of angina reviewed. Emergency care if ever needed for symptoms. Once results of cardiac MRI are available then will review and refer to [facility] cardiac surgery if appropriate. (5) Coronary artery occlusion: Code(s): I24.0 - Acute coronary thrombosis not resulting in myocardial infarction (6) Hyperlipidemia: Code(s): E78.5 - Hyperlipidemia, unspecified Plan: ideal LDL goal less than 70. No recent lipid profile for review. Labs typically followed by PCP and HIV provider. He is on atorvastatin 20 mg daily. He also has known history of HIV and is on antiviral agents. At this time will continue on current atorvastatin dose. If okay with his HIV provider will have them increase his atorvastatin to reduce his LDL to goal. Medications: New aspirin 81 mg PO DAILY 90 tabs 3RF Coding Level of Care Code Est Pt Level 4 (85319) Diagnoses HFrEF (heart failure with reduced ejection fraction) I50.20 Cardiomyopathy I42.9 S/P cardiac catheterization Z98.890 Coronary atherosclerosis I25.10 Coronary artery occlusion I24.0 Hyperlipidemia E78.5 CPT Codes EKG - CPT: 54750-[id number], Complete ([id number]) Time Spent (min) 28 Comment Chart review, documentation, interview, assessment
== END 2023-05-06 15:16 | disposition home or self-care (01) ==
PROVIDERS: Visit Provider Nurse Practitioner Family
DX: R00.1 Bradycardia, unspecified (principal); R94.31 Abnormal electrocardiogram [ECG] [EKG]
CPT/HCPCS: 93010; 99214

== ENCOUNTER → 2023-05-06 14:17 | Outpatient (BNVA) | payer OTHER, SELFPAY | PROVIDERS: Visit Provider Nurse Practitioner Family | DX: I50.20 Unspecified systolic (congestive) heart failure (principal); I42.9 Cardiomyopathy, unspecified; I25.10 Atherosclerotic heart disease of native coronary artery without angina pectoris; I24.0 Acute coronary thrombosis not resulting in myocardial infarction; E78.5 Hyperlipidemia, unspecified; Z79.899 Other long term (current) drug therapy; Z98.890 Other specified postprocedural states | CPT/HCPCS: 93005 ==

== ENCOUNTER → 2023-06-21 13:49 | Outpatient (REF) | payer OTHER, SELFPAY ==
--- NOTE | 2023-06-21 13:52 | CA_ITS ---
Transthoracic Echocardiogram Patient (Last, First, Middle): Nico Groves, Gender: Male Date of : 1970 Age: 53 Procedure Date: 06/21/2023 Procedure Type: Transthoracic Echocardiogram Location: OP Height: 177.8 cm Weight: 77.11 kg BSA: 1.95 m2 Heart Rate: bpm BP: 100 / 60 mmHg Internet Webmaster: TO Referring MD: Jose Alfredo Greer MD Symptoms: I42.9 - Cardiomyopathy, unspecified Study Quality: Fair/Contrast Conclusions: - The left ventricular systolic function is severely decreased. The visually estimated ejection fraction is between 20-25%. - There is severe global hypokinesis with regional variation. Findings Procedure Information Contrast agent, definity, is being given per protocol without apparent complications. Left Ventricle Mildly increased left ventricular cavity size. The left ventricular systolic function is severely decreased. The visually estimated ejection fraction is between 20-25%. There is severe global hypokinesis. Wall Motion Rest Echo Findings The apical inferior, basal inferior, and apical septum segments are akinetic. Prior Study Comparison No significant change compared to prior study dated: 03/29/2023. Measurements 2D Linear Measurements IVSd: 0.91 0.6-0.9/0.6-1.0 cm LVIDd: 6.04 3.9-5.3/4.2-5.9 cm LVIDd Index: 3.10 2.4-3.2/2.2-3.1 cm/m2 LVIDs: 4.83 2.0-3.6 cm LVPWd: 0.85 0.7-1.1 cm LV Mass: 263.04 67-162/88-224 g LV Mass Index: 134.89 43-95/49-115 g/m2 LVOT Diam: 2.20 3.0+(-)1.3 cm 2D Systolic Function EF 4C: 37.90 >55% EF 2C: 28.90 >55% EF BiP: 31.70 >55% LVOT LVOT Pk Calvin: 0.65 LVOT Mn Calvin: 0.49 LVOT VTI: 0.13 LVOT Pk Grad: 2.00 LVOT Mn Grad: 1.00 LVOT Diam: 2.20 LVOT Area: 3.80 Tricuspid Valve RA Press: 8.00 Updated in Other Vendor System with Status of Final Segun Marks MD electronically signed on 06/22/2023 11:25:57 AM with status of Final
== END ==
LOC: HO.CARD 13:49
PROVIDERS: Visit Provider Internal Medicine Cardiovascular Disease
DX: I42.9 Cardiomyopathy, unspecified (principal)
CPT/HCPCS: 93308; Q9957

== ENCOUNTER → 2023-06-21 13:52 | Outpatient (BNV) | payer OTHER, SELFPAY | PROVIDERS: Visit Provider Internal Medicine | DX: I42.9 Cardiomyopathy, unspecified (principal) | CPT/HCPCS: 93308 ==